=== PATIENT | female | born 1940 | race Caucasian/White ===

== ENCOUNTER 2023-07-24 10:25 | Emergency (ER) | payer MEDICARE, OTHER, SELFPAY ==
[2023-07-24] VITALS (8 sets, daily range): BP systolic 103–136; BP diastolic 61–65; PULSE 64–77; RESP 14–18; TEMP 35.8; O2SAT 96–99; BMI 29.1
--- NOTE | 2023-07-24 12:49 | ED_ITS ---
HPI - General Adult General Time Seen by Provider: 12:49 Date Seen: 07/24/23 Chief complaint: Abdominal Pain Stated complaint: history of blood clots, bloody nose, pain in groin Time Seen by Provider: 07/24/23 12:44 Source: patient, family and RN notes reviewed Mode of arrival: ambulatory Limitations: no limitations History of Present Illness HPI narrative: This 83-year-old female comes in accompanied by a family members with concern nose bleeds that have been recurrent, recent diagnosis of pulmonary emboli on blood thinners, some right groin pain. Her daughter is up from [facility] helping right now, patient lives in her other daughter's basement. The daughter that is present notes she has not been moving around much and they have been asking her to. She noted that she got significantly dyspneic when attempting to just clean the floor the other day. They were worried she might have recurrent emboli. She is on Xarelto 15 mg twice a day in next week will start the maintenance dose of 20 mg daily. She reportedly about 2 weeks ago was sent from [place] [id number] in [place] with pulmonary emboli that required interventional radiology. Her son pulls out a picture of all the clots they removed out of her lungs. They reportedly did note residual clot in 1 of her legs but they were told that they would not need to worry about the clot in her leg because she was being started on blood thinners. They have not noted any fevers. She is not necessarily feeling short of breath with activity at questioning but daughter feels that she is dyspneic. They note she has had a cough somewhat since her procedure. Again no fever. Appetite maybe decreased but no abdominal pain. She is complained of right groin pain, they believe this is the side they went in, she did have 1 stitch at 1 point. They also wonder she might be depressed. Her daughter notes that she is not wanting to shower but patient states she did get into the shower last night. Patient denies any falls or trauma. Related Data Home Medications Medication Instructions Recorded Confirmed amlodipine 5 mg tablet 5 mg PO DAILY 07/24/23 07/24/23 atenolol 50 mg tablet 50 mg PO DAILY 07/24/23 07/24/23 glyburide 2.5 mg tablet 2.5 mg PO DAILY 07/24/23 07/24/23 lovastatin 20 mg tablet 20 mg PO DAILY 07/24/23 07/24/23 metformin 1,000 mg tablet 1,000 mg PO BID 07/24/23 07/24/23 zarolto 15 mg PO BID 07/24/23 07/24/23 Allergies Allergy/AdvReac Type Severity Reaction Status Date / Time No Known Drug Allergies Allergy Verified 07/24/23 10:43 Review of Systems Status of ROS: Reports: 6 or more systems reviewed and unremarkable except as noted in History and below PFSH PFS Social History Smoking Status: Never smoker Non-prescribed substance use: denies use Exam Const: Vital Signs, click to edit/add: Vital Signs - 24 hr 07/24/23 10:33 Temperature 96.5 F L Pulse Rate [Right Pulse Oximeter] 77 Respiratory Rate 18 Blood Pressure [Ri ght Upper Arm] 103/65 Pulse Oximetry 96 Oxygen Delivery Me thod Room Air Meli is an 83-year-old female lying in the exam bed in room 7, she is alert, interactive, no apparent distress. Able to speak in complete sentences, no dyspnea no tachypnea, speech is normal. Pupils are equal round, sclera clear, symmetrical facial function. Neck is supple, no cervical adenopathy, no thyromegaly masses or nodules. She is able to sit up easily without assist, lungs are clear, good air entry, no wheezing or crackles. CV regular rate and rhythm, no murmur, normal S1 and S2, no S3 or S4. Abdomen is soft, no abdominal distension, no rebound or guarding. Both in the right groin fold as well as right lower abdominal wall skin fold there is yeast smelling erythematous change of the skin, there is some maceration of the skin. She has 1 little small dime- size wound of the skin along that right lower quadrant/right groin area on the lower abdominal wall where she is tender around it, skin is broke down a bit. She has full range of motion of her right hip, only complaint is pain maybe outside laterally along the right greater trochanter. It is not certainly very tender at all on palpation. I feel no pulsatile groin masses, cannot even see the site where the did the groin vascular access, unless it is the 1 little ulcerated area that may be broke down. The skin changes in the groin fold in the skin fold of the right lower abdomen are all superficial and seemed to be very consistent with yeast. Anterior nares reveal normal septum, no blood in the nares, cannot see anything to cauterize. She is not obviously bleeding at this time. Documenting provider has reviewed patient's vital signs: yes Course Course ED Course: Family is worried that she might have a recurrent pulmonary embolus. Reviewed with them that it would be very unlikely if they have not missed any doses of the Xarelto. We did discuss that the contrast can be detrimental to the ki dneys. We will see where her creatinine is today. Will do a full complement of labs, have her on pulse oximetry while she is here. Will have nursing staff clean her skin folds and get some nystatin powder on there, do some teaching about skin care. Will discussed imaging with family once we have seen labs. Reevaluation(s) Time of Reevaluation #1: 15:54 Reevaluation #1: Have spent time discussing with patient and her family that her labs are quite reassuring, her vitals are excellent here. We discussed that we do note the Xarelto is obviously working as a blood thinner, she is having recurrent nose bleeds. She has had none while she is here. She has been able to control them by a pinching her nose in the appropriate distribution. I did provide her with the blue nose clip to use. It is likely that she may have recurrent bleeds. Recommend that they follow-up with ENT. I can see nothing to cauterize at this time. She cannot stop the anticoagulant. We did discuss imaging, at this time with informed discussion, they have decided against this which I do support. Her right groin is feeling better after nursing staff did some wound care. Vital Signs Vital signs: Initial Vital Signs Temperature 96.5 F L 07/24/23 10:33 Temperature Source Temporal Artery Scan 07/24/23 10:33 Pulse Rate 77 07/24/23 10:33 Respiratory Rate 18 07/24/23 10:33 Blood Pressure 103/65 07/24/23 10:33 Blood Pressure Mean 77 07/24/23 10:33 Blood Pressure Position Sitting 07/24/23 10:33 Pulse Oximetry 96 07/24/23 10:33 Oxygen Delivery Method Room Air 07/24/23 10:33 Vital Signs Temperature 96.5 F L 07/24/23 10:33 Pulse Rate 77 07/24/23 10:33 Respiratory Rate 18 07/24/23 10:33 Blood Pressure 103/65 07/24/23 10:33 Pulse Oximetry 96 07/24/23 10:33 Oxygen Delivery Method Room Air 07/24/23 10:33 Temperature 96.5 F L 07/24/23 10:33 Pulse Rate 77 07/24/23 10:33 Respiratory Rate 18 07/24/23 10:33 Blood Pressure 103/65 07/24/23 10:33 Pulse Oximetry 96 07/24/23 10:33 Oxygen Delivery Method Room Air 07/24/23 10:33 Medications Administered Medications: Generic Name Dose Route Start Last Admin Trade Name Freq PRN Reason Stop Dose Admin Nystatin 1 applic 07/24/23 21:00 07/24/23 14:15 Nystatin Powder TOPICAL 1 applic BID SHARA Administration Discontinued Medications Generic Name Dose Route Start Last Admin Trade Name Freq PRN Reason Stop Dose Admin Sodium Chloride 250 mls @ 250 mls/hr 07/24/23 13:54 07/24/23 14:25 0.9 % Sodium Chloride 250 Ml IV 07/24/23 14:53 Infused .Q1H ONE Infusion Medical Decision Making Lab Data Labs: Lab Results 07/24/23 07/24/23 Range/Units 13:05 13:25 WBC 6.29 (4.50-11.00) K/uL RBC 3.92 L (4.00-5.20) m/uL Hgb 11.6 L (12.0-16.0) gm/dL Hct 35.7 (33.0-51.0) % MCV 91 (80-100) fL MCH 30 (26-34) pg MCHC 33 (32-36) gm/dL RDW Coeff of Giovanni 12.8 (11.5-15.5) % Plt Count 244 (140-440) K/uL Neut % (Auto) 67.2 (42.0-72.0) % Lymph % (Auto) 26.2 (20-44) % [place] % (Auto) 5.4 (0.0-11.0) % Eos % (Auto) 1.0 (0.0-7.0) % Baso % (Auto) 0.2 (0.0-3.0) % Neut # (Auto) 4.23 (1.7-7.0) K/uL Lymph # (Auto) 1.65 (0.90-2.90) K/uL [place] # (Auto) 0.30 (0.00-0.90) K/UL Eos # (Auto) 0.06 (0.00-0.50) K/uL Baso # (Auto) 0.01 (0.00-0.30) K/uL Abs Immat Gran (auto) 0.00 (0.00-0.30) K/uL Imm/Tot Granulo (auto) 0.0 % Sodium 139 (135-149) mmol/L Potassium 4.8 (3.6-5.1) mmol/L Chloride 107 (96-114) mmol/L Carbon Dioxide 22 (20-32) mmol/L Anion Gap 10 (7-15) mEq/L BUN 21 (7-30) mg/dL Creatinine 1.3 (0.5-1.5) mg/dL Estimated Creat Clear 29.50 Estimated GFR 41 ml/min Glucose 136 H (60-115) mg/dL Lactate 2.3 H (0.5-1.9) mmol/L Calcium 9.7 (8.4-10.6) mg/dL Total Bilirubin 0.4 (0.1-1.5) mg/dL AST 26 (12-35) U/L ALT 21 (4-35) U/L Alkaline Phosphatase 39 L (40-150) U/L C-Reactive Protein < 0.5 L (0.5-1.0) mg/dL Total Protein 7.5 (6.0-8.3) g/dL Albumin 4.4 (3.3-5.0) g/dL POC Troponin I 0.00 L (0.01-0.04) ng/ml ECG Data Attestation: I personally reviewed and interpreted this ECG as follows: (Normal sinus rhythm, 64 beats per minute. Q-wave in flipped T-wave in V1 without ST segment changes, no definitive active ischemia or infarct seen. QT corrected 406 milliseconds.) Critical Care Time Critical Care Time Critical Care Time: No Discharge Plan Discharge Clinical Impression: Epistaxis, Yeast dermatitis, Chronic anticoagulation, Pulmonary emboli Patient Disposition: Home, Self-Care Condition: Stable Instructions: Nosebleed (ED), Skin Yeast Infection (ED) Additional Instructions: You cannot stop the Xarelto, need to take as prescribed. It is important to not miss any doses, it sounds as you have been good about taking the medication as prescribed. Do recommend that you get an ENT appointment to further look at the left nose bleed do been having. Can use a small amount of Vaseline, about pea size in each anterior nostril at bedtime, this can sometimes help moisturize the nasal membranes. Be careful to not rub the Vaseline in to roughly, do not want to cause any bleeding. You can contact [facility] to get scheduled for ENT or there is Dr. Mackey, need to call the [facility] clinic as they do his scheduling at the different sites he goes to. This phone number is [phone]. If your nose bleed does not stop within 30 minutes of the nose clip on with direct pressure, do recommend coming in to have the nose packed. Have provided nystatin powder to be used twice a day in the skin folds, it is important to observe good skin care, try to keep the moisture down in the skin folds and keep this skin cleaned daily. Activity Level: Activity as Tolerated Prescriptions: No Action zarolto 15 mg PO BID Patient Comments: then will increase to 20 mg will start within the next week glyburide 2.5 mg tablet 2.5 mg PO DAILY amlodipine 5 mg tablet 5 mg PO DAILY metformin 1,000 mg tablet 1,000 mg PO BID lovastatin 20 mg tablet 20 mg PO DAILY atenolol 50 mg tablet 50 mg PO DAILY Follow Up/Referrals: Paloma Escobedo DO [Primary Care Provider] - Stand Alone Forms: [employer] Info Instructions
[2023-07-24 13:31] LABS: Lactate* 2.3 mmol/L (0.5-1.9)
[2023-07-24 13:33] LABS: Basophils Absolute Auto 0.01 K/uL (0.00-0.30); Basophils Percent Auto 0.2 % (0.0-3.0); Eosinophils Absolute Auto 0.06 K/uL (0.00-0.50); Hematocrit 35.7 % (33.0-51.0); Hemoglobin* 11.6 gm/dL (12.0-16.0); Lymphocytes Absolute Auto 1.65 K/uL (0.90-2.90); Lymphocytes Percent Auto 26.2 % (20-44); Mean Corpuscular HGB Conc 33 gm/dL (32-36); Mean Corpuscular Hemoglobin 30 pg (26-34); Mean Corpuscular Volume 91 fL (80-100); Monocytes Percent Auto 5.4 % (0.0-11.0); Neutrophils Absolute Auto 4.23 K/uL (1.7-7.0); Neutrophils Percent Auto 67.2 % (42.0-72.0); Platelet Count* 244 K/uL (140-440); RDW Coefficient of Variation % 12.8 % (11.5-15.5); Red Blood Count 3.92 m/uL (4.00-5.20); White Blood Count* 6.29 K/uL (4.50-11.00)
[2023-07-24 13:35] LABS: Slide Review Reflex No
[2023-07-24 13:56] LABS: Albumin* 4.4 g/dL (3.3-5.0); Chloride* 107 mmol/L (96-114)
[2023-07-24 13:57] LABS: Potassium* 4.8 mmol/L (3.6-5.1); Sodium* 139 mmol/L (135-149)
[2023-07-24 13:59] LABS: Bilirubin Total* 0.4 mg/dL (0.1-1.5); Creatinine* 1.3 mg/dL (0.5-1.5); Estimated Glomerular Filt Rate 41 ml/min
[2023-07-24 14:00] LABS: Alanine Aminotransferase* 21 U/L (4-35); Alkaline Phosphatase* 39 U/L (40-150); Anion Gap 10 mEq/L (7-15); Aspartate Amino Transferase* 26 U/L (12-35); Blood Urea Nitrogen* 21 mg/dL (7-30); Calcium* 9.7 mg/dL (8.4-10.6); Carbon Dioxide* 22 mmol/L (20-32); Glucose* 136 mg/dL (60-115); Total Protein* 7.5 g/dL (6.0-8.3)
[2023-07-24 14:04] LABS: C Reactive Protein* < 0.5 mg/dL (0.5-1.0)
--- NOTE | 2023-07-24 14:12 | ED.NURSE ---
Cleaned both groin folds and applied zinc cream/nystatin powder. Educated patient on continuing this going forward. Both sides did bleed a little after this hygiene was performed.
[2023-07-24] MEDS: 0.9 % SODIUM CHLORIDE 250 ml 250 ML IV (14:15)
[2023-07-24] MEDS: NYSTATIN POWDER 1 APPLIC TOPICAL (14:15)
--- NOTE | 2023-07-24 14:51 | ED.NURSE ---
Report received from HONEY Vasquez.
== END 2023-07-24 16:15 | disposition home or self-care (01) ==
PROVIDERS: Emergency Provider Family Medicine; PCP Family Medicine
DX: R04.0 Epistaxis (principal); B37.2 Candidiasis of skin and nail; I26.99 Other pulmonary embolism without acute cor pulmonale; Z79.01 Long term (current) use of anticoagulants
CPT/HCPCS: 36415; 80053; 83605; 84484; 85025; 86140; 93005; 94761; 99284; A9270; J7050

== ENCOUNTER 2023-12-22 18:28 | Inpatient (IN) | payer MEDICARE, OTHER, SELFPAY ==
[2023-12-22 18:56] VITALS: BP 145/79; PULSE 70; RESP 18; TEMP 36.5; O2SAT 96; BMI 27.3
--- NOTE | 2023-12-22 19:19 | ED_ITS ---
HPI - Fall General Time Seen by Provider: 19:20 Date Seen: 12/22/23 Chief Complaint: Fall/Minor Trauma Stated Complaint: fell, hip and shoulder pain Time Seen by Provider: 12/22/23 19:08 Source: patient and RN notes reviewed Mode of arrival: ambulatory Limitations: no limitations History of Present Illness HPI Narrative: This 83-year-old female is coming to the ER accompanied by a female relative with complaint of left-sided pain, particularly her left hip area. She was outside with her dog about 3:00 p.m. this afternoon, was throwing the ball for the dog and lost her balance on the rocks. She fell hitting her left side. She states the left hip area took the most impact. She has been attempting to try to walk on it but it hurts. There was no loss of consciousness, she does not believe she had her head at all. There is no neck pain. She is having no difficulty breathing. There is some mild shoulder pain. No abdominal pain, no nausea or vomiting. There is no numbness tingling anywhere. Patient is on Xarelto. complaint: fall Prolonged down time: no Symptoms prior to fall: none Related Data Home Medications Medication Instructions Recorded Confirmed amlodipine 5 mg tablet 5 mg PO DAILY 07/24/23 07/24/23 atenolol 50 mg tablet 50 mg PO DAILY 07/24/23 07/24/23 glyburide 2.5 mg tablet 2.5 mg PO DAILY 07/24/23 07/24/23 lovastatin 20 mg tablet 20 mg PO DAILY 07/24/23 07/24/23 metformin 1,000 mg tablet 1,000 mg PO BID 07/24/23 07/24/23 zarolto 15 mg PO BID 07/24/23 07/24/23 Allergies Allergy/AdvReac Type Severity Reaction Status Date / Time No Known Drug Allergies Allergy Verified 07/24/23 10:43 Review of Systems Status of ROS: Reports: 6 or more systems reviewed and unremarkable except as noted in History and below PFSH [facility] Social History Smoking Status: Never smoker Non-prescribed substance use: denies use Exam Const: Vital Signs, click to edit/add: Vital Signs - 24 hr 12/22/23 18:56 12/22/23 20:21 12/22/23 23:28 Temperature 97.7 F Pulse Rate [Pulse Oximeter] 70 68 Respiratory Rate 18 16 Blood Pressure [Ri ght Upper Arm] 145/79 H 127/83 Pulse Oximetry 96 99 93 Oxygen Delivery Me thod Room Air Room Air Patient is alert, interactive, no apparent distress, lying in exam bed 5. Head/face/scalp atraumatic, no tenderness. No midline tenderness of her neck, no paraspinal tenderness. Pupils equal round, sclera clear, conjugate gaze. Symmetrical facial function, speech is normal. No cervical adenopathy, no neck masses. Lungs are clear, good air entry, no wheezing or crackles. CV regular rate and rhythm, no murmur, normal S1-S2, no S3-S4. She is nontender over her clavicles until I get to the distal left lateral clavicle by the shoulder in the AC joint. Gentle range of motion of her left shoulder reveals that the shoulder still is very likely in the joint, there is mild pain with manipulation. She has a superficial abrasion over the left posterolateral elbow, no active bleeding. Full range of motion at the elbow wrist and hand on this side. Abdomen is soft, nondistended, she does complain of pain intermittently throughout full distribution of her abdomen but abdomen is not tense, no underlying organomegaly. She states there is baseline no pain, just sometimes hurts when I palpate her abdomen. Will continue to monitor this. She has no leg length discrepancy. There is pain with range of motion about her hip on minimal movement. She does have some pain when I palpate in the groin area, over this left lateral pelvis and hip. Documenting provider has reviewed patient's vital signs: yes Course Course ED Course: Patient will need imaging done, may need to consider advanced imaging with CT. Will see the extent of her possible pelvic or left hip fractures. We will get a plain chest x-ray, left shoulder images. Will have an IV placed, get some basic labs. Will monitor on pulse oximetry. She declines anything for pain management at this time. States she is comfortable while just lying there, pain is not too bad. Will consider shoulder fracture, lateral clavicle fracture but doubt this based on clinical exam. Could be more of a rotator cuff injury with the fall which we will not diagnose definitively tonight. Look at chest x-ray. Get hip and pelvic imaging as we are considering fractures in this distribution. Reevaluation(s) Time of Reevaluation #1: 19:57 Reevaluation #1: Nursing staff is requesting pain management for this patient. She had originally declined when I saw her. We will give her a dose of Tylenol, some IV morphine at 2 mg and cover for nausea with Zofran. Awaiting imaging and labs. Time of Reevaluation #2: 22:00 Reevaluation #2: Reviewed her x-ray imaging is showing no fractures. We will have nursing staff see if she can ambulate. She does have a walker at home but does not use it baseline. If she is having significant pain with ambulation, will need to proceed with CT imaging. Time of Reevaluation #3: 22:16 Reevaluation #3: Patient could not even stand to bear weight. Points to the left hip area where it is hurting. She does have some tenderness over the lateral area over the trochanter but also complains of pain with gentle range of motion of the left hip. She has some pain more posteriorly behind the hip area. We are going to proceed with CT imaging of her left hip and pelvis. Patient denies any need for further pain management at this time. Additional Reevaluation(s): 12:03 a.m. have spoken with daughter inpatient. Plan will be for admission here. She will need to let her Xarelto taper off. They know that at some point bridging with Lovenox will be started. Actual time of procedure is not known definitely but my best guess is Monday. They understand between the hospitalist, pharmacy and Orthopedics a definitive plan will be made. They will know more tomorrow. Consultations Consultation #1: Victoria MCCALLUM from Orthopedics was contacted. Did review the history. She wonders if the hospitalist will be okay with the history of the pulmonary emboli. She would like me to talk to them. I did subsequently talk to Dr. Hutchins, we reviewed the case. Reviewed with him that Victoria thought it would probably be just some pinning. I did subsequently call her back, she had reviewed with Dr. Hardy. It seems that all are in agreement for this to be done here, they feel that there is a safe plan in place. I will be talking to the overnight hospitalist. Will page them. Time: 23:46 Consultation #2: 00:09am: Did speak with Dr. Jones the overnight on-call hospitalist. We reviewed the case. I did bring up bridging with Lovenox. He stated it to is likely not recommended. He stated there was a new [place] [employer] medicine that came out about a year ago documenting increased risks with bridging in patient population such as this. I will leave this up for pharmacy in the hospitalist to discuss and review. He does accept the patient. Did review the hemoglobins. This is likely mild expected drop with a hip fracture. Time: 00:01 Vital Signs Vital signs: Initial Vital Signs Temperature 97.7 F 12/22/23 18:56 Temperature Source Temporal Artery Scan 12/22/23 18:56 Pulse Rate 70 12/22/23 18:56 Pulse Rhythm Regular 12/22/23 18:56 Respiratory Rate 18 12/22/23 18:56 Blood Pressure 145/79 H 12/22/23 18:56 Blood Pressure Mean 101 12/22/23 18:56 Blood Pressure Position Sitting 12/22/23 18:56 Pulse Oximetry 96 12/22/23 18:56 Oxygen Delivery Method Room Air 12/22/23 18:56 Vital Signs Temperature 97.7 F 12/22/23 18:56 Pulse Rate 70 12/22/23 18:56 Respiratory Rate 18 12/22/23 18:56 Blood Pressure 145/79 H 12/22/23 18:56 Pulse Oximetry 96 12/22/23 18:56 Oxygen Delivery Method Room Air 12/22/23 18:56 Temperature 97.7 F 12/22/23 18:56 Pulse Rate 68 12/22/23 23:28 Respiratory Rate 16 12/22/23 23:28 Blood Pressure 127/83 12/22/23 23:28 Pulse Oximetry 93 12/22/23 23:28 Oxygen Delivery Method Room Air 12/22/23 23:28 Medications Administered Medications: Discontinued Medications Generic Name Dose Route Start Last Admin Trade Name Freq PRN Reason Stop Dose Admin Acetaminophen 1,000 mg 12/22/23 19:57 12/22/23 20:20 Acetaminophen 500 Mg Tablet PO 12/22/23 19:58 1,000 mg ONCE ONE Administration Morphine Sulfate 2 mg 12/22/23 19:57 12/22/23 20:20 Morphine 2 Mg/Ml Inj IVP 12/22/23 19:58 2 mg ONCE ONE Administration Ondansetron HCl 4 mg 12/22/23 19:57 12/22/23 20:20 Ondansetron 2 Mg/Ml Inj IVP 12/22/23 19:58 4 mg ONCE ONE Administration - Fall Lab Data Attestation: I reviewed the patient's lab results. Labs: Lab Results 12/22/23 12/22/23 Range/Units 19:55 23:45 WBC 11.25 H (4.50-11.00) K/uL RBC 3.90 L (4.00-5.20) m/uL Hgb 11.5 L 10.7 L (12.0-16.0) gm/dL Hct 35.0 (33.0-51.0) % MCV 90 (80-100) fL MCH 30 (26-34) pg MCHC 33 (32-36) gm/dL RDW Coeff of Giovanni 12.9 (11.5-15.5) % Plt Count 252 (140-440) K/uL Neut % (Auto) 87.2 H (42.0-72.0) % Lymph % (Auto) 7.8 L (20-44) % Walsh % (Auto) 4.2 (0.0-11.0) % Eos % (Auto) 0.1 (0.0-7.0) % Baso % (Auto) 0.1 (0.0-3.0) % Neut # (Auto) 9.80 H (1.7-7.0) K/uL Lymph # (Auto) 0.90 (0.90-2.90) K/uL Walsh # (Auto) 0.50 (0.00-0.90) K/UL Eos # (Auto) 0.00 (0.00-0.50) K/uL Baso # (Auto) 0.00 (0.00-0.30) K/uL Abs Immat Gran (auto) 0.10 (0.00-0.30) K/uL Imm/Tot Granulo (auto) 0.6 % Sodium 135 (135-149) mmol/L Potassium 5.0 (3.6-5.1) mmol/L Chloride 104 (96-114) mmol/L Carbon Dioxide 21 (20-32) mmol/L Anion Gap 10 (7-15) mEq/L BUN 27 (7-30) mg/dL Creatinine 1.4 (0.5-1.5) mg/dL Estimated Creat Clear 27.40 Estimated GFR 37 ml/min Glucose 210 H (60-115) mg/dL Calcium 10.0 (8.4-10.6) mg/dL Total Bilirubin 0.3 (0.1-1.5) mg/dL AST 24 (12-35) U/L ALT 16 (4-35) U/L Alkaline Phosphatase 46 (40-150) U/L Total Protein 8.1 (6.0-8.3) g/dL Albumin 4.7 (3.3-5.0) g/dL Imaging Data Chest x-ray: Attestation: I have reviewed the pertinent imaging results. Radiologist's impression: Patient: JERICA POSADAS Facility:?[facility] Patient ID:?[id number] Site Patient ID:?[id number] Site :?1940 Study:?XRay-Chest 1V-12/22/2023 8:11:45 PM Ordering Physician:?RACHEL Final Report: INDICATION: Trauma, fall. TECHNIQUE: Chest 1 view. COMPARISON: None. FINDINGS: Cardiovascular and mediastinum: Heart size and vasculature are normal in caliber and appearance. Lungs and pleural spaces: Lungs are clear. No sign of infiltrate or mass. No sign of pleural effusion. No pneumothorax. Bones and soft tissues: No significant findings. IMPRESSION: Negative chest. Dictated by Andrea Thorpe MD @ 12/22/2023 9:08:50 PM (Electronic Signature) XR left hip/pelvis: Attestation: I have reviewed the pertinent imaging results. My impression: I did not appreciate any left hip fracture, do see old pinning of her right hip. Await Radiology over-read. Radiologist's impression: Patient: JERICA POSADAS Facility:?[facility] Patient ID:?[id number] Site Patient ID:?[id number]. Site :?1940 Study:?XRay-Pelvis /HIP 2V-12/22/2023 8:13:17 PM Ordering Physician:ARY Final Report: INDICATION: Fall and pain. TECHNIQUE: Pelvis and left hip 3 views. COMPARISON: None. FINDINGS: No acute fracture or dislocation. Mild degenerative changes of the hips, SI joints, and pubic symphysis. Lower lumbar spondylosis. Vascular calcifications. IMPRESSION: No acute osseous abnormality. Dictated by Andrea Thorpe MD @ 12/22/2023 9:19:52 PM (Electronic Signature) XR left shoulder: Attestation: I have reviewed the pertinent imaging results. My impression: I did not appreciate any acute fracture on my preliminary review. Radiologist's impression: Patient: JERICA POSADAS Facility:?[facility] Patient ID:?[id number] Site Patient ID:?[id number]. Site :?1940 Study:?XRay-Extremity Left SHOULDER 3V-12/22/2023 8:12:16 PM Ordering Physician:?RACHEL Final Report: INDICATION: Fall and pain. TECHNIQUE: Left shoulder 3 views. COMPARISON: None. FINDINGS: No acute fracture or dislocation. AC and glenohumeral joint degenerative changes. Soft tissues are unremarkable. IMPRESSION: No acute osseous abnormality. Dictated by Andrea Thorpe MD @ 12/22/2023 9:21:13 PM (Electronic Signature) CT- Other: Attestation: I have reviewed the pertinent imaging results. Radiologist's impression: Patient: JERICA POSADAS Facility:?[facility] Patient ID:?[id number] Site Patient ID:?[id number] Site :?1940 Study:?CT-Hip Left -12/22/2023 11:16:51 PM Ordering Physician:?ABIDA ROSENBERG Final Report: INDICATION: Trauma, fall. TECHNIQUE: CT left hip without contrast. COMPARISON: Same day left hip radiographs. FINDINGS: Diffuse osteopenia. Subtle nondisplaced fracture of the left femoral subcapital neck. Joint alignment is maintained. Mild degenerative changes of the hips, SI joints, and pubic symphysis. Right proximal femur screw fixation. Colonic diverticulosis. Visualized small and large bowel are normal in caliber. Status post hysterectomy. Atherosclerotic calcifications. No pelvic adenopathy. IMPRESSION: Subtle nondisplaced left femoral subcapital neck fracture. Please note that all CT scans at this facility use dose modulation, iterative reconstruction, and/or weight-based dosing when appropriate to reduce radiation dose to as low as reasonably achievable. Dictated by Andrea Thorpe MD @ 12/22/2023 11:26:36 PM (Electronic Signature) Discharge Plan Discharge Clinical Impression: Chronic anticoagulation, History of pulmonary embolism Closed subcapital fracture of femur Qualifiers: Encounter type: initial encounter Laterality: left Qualified Code(s): S72.012A - Unspecified intracapsular fracture of left femur, initial encounter for closed fracture Patient Disposition: Admitted As Observation
--- NOTE | 2023-12-22 19:25 | XR_ITS ---
Patient: JERICA POSADAS Facility:?[facility] Patient ID:?[id number] Site Patient ID:?[id number]. Site :?1940 Study:?XRay-Pelvis /HIP 2V-12/22/2023 8:13:17 PM Ordering Physician:ARY Final Report: INDICATION: Fall and pain. TECHNIQUE: Pelvis and left hip 3 views. COMPARISON: None. FINDINGS: No acute fracture or dislocation. Mild degenerative changes of the hips, SI joints, and pubic symphysis. Lower lumbar spondylosis. Vascular calcifications. IMPRESSION: No acute osseous abnormality. Dictated by Andrea Thorpe MD @ 12/22/2023 9:19:52 PM Signed by:?Andrea Thorpe MD @12/22/2023 9:19:52 PM (Electronic Signature)
--- NOTE | 2023-12-22 19:25 | XR_ITS ---
Patient: JERICA POSADAS Facility:?[facility] Patient ID:?[id number] Site Patient ID:?[id number]. Site :?1940 Study:?XRay-Extremity Left SHOULDER 3V-12/22/2023 8:12:16 PM Ordering Physician:ARY Final Report: INDICATION: Fall and pain. TECHNIQUE: Left shoulder 3 views. COMPARISON: None. FINDINGS: No acute fracture or dislocation. AC and glenohumeral joint degenerative changes. Soft tissues are unremarkable. IMPRESSION: No acute osseous abnormality. Dictated by Andrea Thorpe MD @ 12/22/2023 9:21:13 PM Signed by:?Andrea Thorpe MD @12/22/2023 9:21:13 PM (Electronic Signature)
--- NOTE | 2023-12-22 19:25 | XR_ITS ---
Patient: JERICA POSADAS Facility:?[facility] Patient ID:?[id number] Site Patient ID:?[id number] Site :?1940 Study:?XRay-Chest 1V-12/22/2023 8:11:45 PM Ordering Physician:ARY Final Report: INDICATION: Trauma, fall. TECHNIQUE: Chest 1 view. COMPARISON: None. FINDINGS: Cardiovascular and mediastinum: Heart size and vasculature are normal in caliber and appearance. Lungs and pleural spaces: Lungs are clear. No sign of infiltrate or mass. No sign of pleural effusion. No pneumothorax. Bones and soft tissues: No significant findings. IMPRESSION: Negative chest. Dictated by Andrea Thorpe MD @ 12/22/2023 9:08:50 PM Signed by:?Andrea Thorpe MD @12/22/2023 9:08:50 PM (Electronic Signature)
[2023-12-22 20:01] LABS: Basophils Percent Auto 0.1 % (0.0-3.0); Eosinophils Percent Auto 0.1 % (0.0-7.0); Hemoglobin* 11.5 gm/dL (12.0-16.0); Immature Granulocytes Pct Auto 0.6 %; Lymphocytes Percent Auto 7.8 % (20-44); Mean Corpuscular HGB Conc 33 gm/dL (32-36); Mean Corpuscular Hemoglobin 30 pg (26-34); Mean Corpuscular Volume 90 fL (80-100); Monocytes Percent Auto 4.2 % (0.0-11.0); Neutrophils Percent Auto 87.2 % (42.0-72.0); Platelet Count* 252 K/uL (140-440); RDW Coefficient of Variation % 12.9 % (11.5-15.5); White Blood Count* 11.25 K/uL (4.50-11.00)
[2023-12-22 20:11] LABS: Slide Review Reflex No
[2023-12-22] MEDS: ACETAMINOPHEN 500 MG TABLET 1000 MG PO (20:20)
[2023-12-22] MEDS: ONDANSETRON 2 MG/ML inj 4 MG IVP (20:20)
[2023-12-22] MEDS: MORPHINE 2 MG/ML inj IVP (20:20)
[2023-12-22 20:21] VITALS: O2SAT 99
[2023-12-22 20:21] LABS: Albumin* 4.7 g/dL (3.3-5.0); Chloride* 104 mmol/L (96-114); Sodium* 135 mmol/L (135-149)
[2023-12-22 20:24] LABS: Alanine Aminotransferase* 16 U/L (4-35); Alkaline Phosphatase* 46 U/L (40-150); Anion Gap 10 mEq/L (7-15); Aspartate Amino Transferase* 24 U/L (12-35); Bilirubin Total* 0.3 mg/dL (0.1-1.5); Blood Urea Nitrogen* 27 mg/dL (7-30); Carbon Dioxide* 21 mmol/L (20-32); Creatinine* 1.4 mg/dL (0.5-1.5); Estimated Glomerular Filt Rate 37 ml/min; Glucose* 210 mg/dL (60-115); Total Protein* 8.1 g/dL (6.0-8.3)
--- NOTE | 2023-12-22 22:17 | CT_ITS ---
Patient: JERICA POSADAS Facility:?[facility] Patient ID:?[id number] Site Patient ID:?[id number] Site :?1940 Study:?CT-Hip Left -12/22/2023 11:16:51 PM Ordering Physician:MECHELLE NOLAND Final Report: INDICATION: Trauma, fall. TECHNIQUE: CT left hip without contrast. COMPARISON: Same day left hip radiographs. FINDINGS: Diffuse osteopenia. Subtle nondisplaced fracture of the left femoral subcapital neck. Joint alignment is maintained. Mild degenerative changes of the hips, SI joints, and pubic symphysis. Right proximal femur screw fixation. Colonic diverticulosis. Visualized small and large bowel are normal in caliber. Status post hysterectomy. Atherosclerotic calcifications. No pelvic adenopathy. IMPRESSION: Subtle nondisplaced left femoral subcapital neck fracture. Please note that all CT scans at this facility use dose modulation, iterative reconstruction, and/or weight-based dosing when appropriate to reduce radiation dose to as low as reasonably achievable. Dictated by Andrea Thorpe MD @ 12/22/2023 11:26:36 PM Signed by:?Andrea Thorpe MD @12/22/2023 11:26:36 PM (Electronic Signature)
[2023-12-22 23:28] VITALS: BP 127/83; PULSE 68; RESP 16; O2SAT 93
[2023-12-23] VITALS (11 sets, daily range): BP systolic 108–162; BP diastolic 63–76; PULSE 67–81; RESP 16; TEMP 36.5–37.2; O2SAT 89–94; BMI 27.3
[2023-12-23 00:04] LABS: Hemoglobin* 10.7 gm/dL (12.0-16.0)
[2023-12-23] MEDS: 0.9 % SODIUM CHLORIDE 1000 ml 1,000 ML 75 ML IV ×2 (02:26→15:56)
[2023-12-23] MEDS: SODIUM CHLORIDE 0.9 % (FLUSH) 10 ML SYRINGE 5 ML IVF (02:28)
[2023-12-23] MEDS: OXYCODONE 5 MG TABLET PO (03:06)
--- NOTE | 2023-12-23 04:10 | W.PM.TELEH&P ---
Telehealth- H&P: HPI History of Present Illness Date Seen: 12/23/23 Chief complaint: fell, hip and shoulder pain Narrative: Meli Whalen is seen as an Interactive Telehealth visit. Meli Whalen is a 83 year old female This patient was describing a nausea and vomiting and diarrhea with associated bleeding. Apparently she gets flares like this periodically. Last time she had this was in October 2022 coincidently in the same hospital. At that time she was treated conservatively and was able to discharge. Today the patient is experiencing abdominal pain, rectal pain, rectal bleeding and intermittent nausea. Her rectal bleeding and rectal pain has worsened because she is on anticoagulation. Anticoagulation was last taken on December 21, 2023. I would recommend to continue holding her Eliquis until her bleeding stops. She understands the risks and benefits of holding anticoagulation. If her bleeding does not stop, I would recommend a transfer to a facility where colorectal surgery is available. Patient is experiencing acute blood loss anemia. Hemoglobin appears stable and no indication for transfusion but will order CBC in the a.m. 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 At this point there is no indication for transfusion. Abdominal pain: CT scan did not show any acute abnormality. Her abdominal pain be apparently this is associated with her rectal ulcers I will provide pain medication. [facility] Social History What is your current living situation?: I presently have a place to live Problems where you live: no known problems Problems where you live details: no known problems In the past 12 months, utilities in danger of being shut off: no In past 12 months, lack of transportation kept you from medical appts, meetings, work, or getting things needed for daily living: no In the past 12 mos, have been you worried that your food would run out before you had money to buy more?: never true In the past 12 mos, the food you bought just didn't last and you didn't have money to buy more?: never true Highest level of school completed/degree received: 12th grade, no diploma Smoking Status: Never smoker Second hand tobacco smoke exposure: No How often do you have a drink containing alcohol: never AUDIT-C Alcohol total score: 0 Non-prescribed substance use: denies use Caffeine: Yes (Coffee) How often does anyone, including family, friends and others, physically hurt you: never How often does anyone, including family, friends and others, insult or talk down to you: never How often does anyone, including family, friends and others, threaten you with harm: never How often does anyone, including family, friends and others, scream or curse at you: never Meds Home Medications and Allergies Home Medications Medication Instructions Recorded Confirmed Type amlodipine 5 mg tablet 5 mg PO DAILY 07/24/23 07/24/23 History atenolol 50 mg tablet 50 mg PO DAILY 07/24/23 07/24/23 History glyburide 2.5 mg tablet 2.5 mg PO DAILY 07/24/23 07/24/23 History lovastatin 20 mg tablet 20 mg PO DAILY 07/24/23 07/24/23 History metformin 1,000 mg tablet 1,000 mg PO BID 07/24/23 07/24/23 History zarolto 15 mg PO BID 07/24/23 07/24/23 History Allergies Allergy/AdvReac Type Severity Reaction Status Date / Time No Known Drug Allergies Allergy Verified 07/24/23 10:43 Exam Narrative Exam Narrative: Physical Exam GENERAL: ?vital signs reviewed, well developed and nourished, in no distress HEENT: pupils are equal round and reactive to light, extraocular movements are grossly within normal limits and oral mucosa is moist. NECK: Supple without lymphadenopathy or thyromegaly according to nursing staff examination observation HEART: Regular rate and rhythm without any rubs, murmurs, or gallops. LUNGS: Clear to auscultation bilaterally with good air movement throughout ABDOMEN: Observation from nurse assisted exam, abdomen appears soft, nontender, and nondistended with Positive bowel sounds noted. EXTREMITIES: Strength and sensation is observed to be grossly within normal limits in the upper and lower extremities.? No focal strength deficit is observed. SKIN:? Observed warm and dry with color normal Const Vital Signs, click to edit/add: Vital Signs - 24 hr 12/22/23 18:56 12/22/23 20:21 12/22/23 23:28 Temperature 97.7 F Pulse Rate [Pulse Oximeter] 70 68 Respiratory Rate 18 16 Blood Pressure [Right Arm] Blood Pressure [Right Upper Arm] 145/79 H 127/83 Pulse Oximetry 96 99 93 Oxygen Delivery Method Room Air Room Air 12/23/23 01:10 12/23/23 01:10 12/23/23 03:05 Temperature 98.2 F 98.9 F Pulse Rate [Pulse Oximeter] 78 80 Respiratory Rate 16 16 16 Blood Pressure [Right Arm] 158/73 H 162/72 H Blood Pressure [Right Upper Arm] Pulse Oximetry 92 94 Oxygen Delivery Method Room Air Room Air Hospitalist - H&P: Result Labs Labs: Short CBC 12/22/23 12/22/23 Range/Units 19:55 23:45 WBC 11.25 H (4.50-11.00) K/uL Hgb 11.5 L 10.7 L (12.0-16.0) gm/dL Hct 35.0 (33.0-51.0) % Plt Count 252 (140-440) K/uL BMP 12/22/23 19:55 Sodium 135 Potassium 5.0 Chloride 104 Carbon Dioxide 21 BUN 27 Creatinine 1.4 Glucose 210 H Calcium 10.0 Liver Function 12/22/23 Range/Units 19:55 Total Bilirubin 0.3 (0.1-1.5) mg/dL AST 24 (12-35) U/L ALT 16 (4-35) U/L Alkaline Phosphatase 46 (40-150) U/L Albumin 4.7 (3.3-5.0) g/dL Assessment and Plan Assessment and plan (1) Closed subcapital fracture of femur: Status: Acute (2) Chronic anticoagulation: Status: Acute (3) History of pulmonary embolism: Status: Acute (4) Accelerated hypertension: Status: Acute Plan 83-year-old female who is a subtle nondisplaced femoral neck fracture. Orthopedics has been consulted. Patient will be kept NPO. Anticoagulation is held. I do not recommend bridging due to the high risk of bleeding. Patient's pain is controlled. As needed Kahn catheter has been ordered in case she is unable to ambulate. Currently on bedrest. Patient is on room air, denies chest pain, has a normal kidney function. Patient denies any chest pain at rest or activity. Denies any shortness of breath with activity. Patient is likely a low risk candidate for moderate risk surgery. Patient has a history of pulmonary embolism for which she is on Eliquis. Her last dose Eliquis filled on December. At this time I would recommend holding her Eliquis. Postoperative, if the surgeons feel it is okay to restart it she can restart at her regular dose. There was a questionable bridging, I think the risk of bleeding would outweigh the risk of any benefit of having her on any bridging. Therefore I would hold off. Patient does have a history of hypertension for which she is on amlodipine and atenolol. Her blood pressures are elevated likely in the setting of pain. Will restart home medications. Telehealth: Statement Statement Telehealth Visit: Today's History and Physical is provided via interactive telehealth by Jackson Jones MD.? Patient is located at [facility].? Provider is located at [facility].? Nursing staff assisted with the patient's exam. The visit being done today meets criteria for a telehealth visit and the patient or patient?s parent/guardian is aware the visit is a telehealth visit. Camera Start Time: 01:30 Camera End Time: 02:00
--- NOTE | 2023-12-23 07:36 | PC.NURSE ---
Pt alert and oriented x3 with some forgetfulness.?Pt reports 5/10 pain in left hip, pain managed with PRN medications. Pt?s antoine catheter is patent and draining. Pt is tolerating and NPO diet. Pt slept intermittently throughout night. ?
[2023-12-23 08:03] LABS: Lactate* 1.3 mmol/L (0.5-1.9)
[2023-12-23 08:04] LABS: Basophils Absolute Auto 0.01 K/uL (0.00-0.30); Basophils Percent Auto 0.1 % (0.0-3.0); Eosinophils Absolute Auto 0.09 K/uL (0.00-0.50); Eosinophils Percent Auto 1.1 % (0.0-7.0); Hematocrit 31.7 % (33.0-51.0); Hemoglobin* 10.4 gm/dL (12.0-16.0); Immature Granulocytes Abs Auto 0.02 K/uL (0.00-0.30); Immature Granulocytes Pct Auto 0.3 %; Lymphocytes Percent Auto 11.7 % (20-44); Mean Corpuscular HGB Conc 33 gm/dL (32-36); Mean Corpuscular Hemoglobin 29 pg (26-34); Mean Corpuscular Volume 89 fL (80-100); Monocytes Percent Auto 5.1 % (0.0-11.0); Neutrophils Percent Auto 81.7 % (42.0-72.0); Platelet Count* 206 K/uL (140-440); Red Blood Count 3.56 m/uL (4.00-5.20); White Blood Count* 7.85 K/uL (4.50-11.00)
[2023-12-23 08:06] LABS: Slide Review Reflex No
[2023-12-23 08:17] LABS: Chloride* 103 mmol/L (96-114)
[2023-12-23 08:18] LABS: Potassium* 4.9 mmol/L (3.6-5.1); Sodium* 136 mmol/L (135-149)
[2023-12-23 08:20] LABS: Creatinine* 1.3 mg/dL (0.5-1.5); Estimated Glomerular Filt Rate 41 ml/min
[2023-12-23 08:21] LABS: Anion Gap 7 mEq/L (7-15); Blood Urea Nitrogen* 24 mg/dL (7-30); Calcium* 9.5 mg/dL (8.4-10.6); Carbon Dioxide* 26 mmol/L (20-32); Glucose* 170 mg/dL (60-115)
--- NOTE | 2023-12-23 08:46 | P.ORCN_ITS ---
History of Present Illness HPI Date Seen: 12/23/23 Chief complaint: fell, hip and shoulder pain Narrative: Meli is a pleasant 83-year-old female. She reports playing with her dog when unfortunately she tripped and fell landing onto her left hip. She had significant pain. Difficulty bearing weight. She lives with her daughter and son-in-law. They brought her to [facility] yesterday (12/22/2023). There, x-rays and a CT scan were obtained. This revealed a valgus impacted left femoral neck fracture. Orthopedics was consulted to assist with further management of this musculoskeletal injury. She does have a history of PE, per her daughter (Jonna) who I spoke with on the phone. Her daughter does not recall an inciting event for the PE. She recalls approximately 06/2020 for that Meli had some difficulty walking to and from the mailbox or climbing a flight of stairs. This prompted some concern and an admission to a hospital where workup revealed PE. Since, she has been on Xarelto, per her daughter Jonna. Review of Systems Narrative: Today, Meli denies chest pain or shortness of breath. No blurred vision or double vision. The history of blood clots/PE is noteworthy and her current use of a blood thinner thought to be Xarelto. [facility] Social History What is your current living situation?: I presently have a place to live Problems where you live: no known problems Problems where you live details: no known problems In the past 12 months, utilities in danger of being shut off: no In past 12 months, lack of transportation kept you from medical appts, meetings, work, or getting things needed for daily living: no In the past 12 mos, have been you worried that your food would run out before you had money to buy more?: never true In the past 12 mos, the food you bought just didn't last and you didn't have money to buy more?: never true Highest level of school completed/degree received: 12th grade, no diploma Smoking Status: Never smoker Second hand tobacco smoke exposure: No How often do you have a drink containing alcohol: never AUDIT-C Alcohol total score: 0 Non-prescribed substance use: denies use Caffeine: Yes (Coffee) How often does anyone, including family, friends and others, physically hurt you : never How often does anyone, including family, friends and others, insult or talk down to you: never How often does anyone, including family, friends and others, threaten you with harm: never How often does anyone, including family, friends and others, scream or curse at you: never Meds Home Medications and Allergies Home Medications Medication Instructions Recorded Confirmed Type amlodipine 5 mg tablet 5 mg PO DAILY 07/24/23 12/23/23 History atenolol 50 mg tablet 50 mg PO DAILY 07/24/23 12/23/23 History glyburide 2.5 mg tablet 2.5 mg PO DAILY 07/24/23 12/23/23 History lovastatin 20 mg tablet 20 mg PO DAILY 07/24/23 12/23/23 History metformin 1,000 mg tablet 1,000 mg PO BID 07/24/23 12/23/23 History rivaroxaban 20 mg tablet (Xarelto) 20 mg PO DAILY 12/23/23 12/23/23 History sertraline 50 mg tablet 50 mg PO DAILY 12/23/23 12/23/23 History Allergies Allergy/AdvReac Type Severity Reaction Status Date / Time No Known Drug Allergies Allergy Verified 07/24/23 10:43 Ortho Exam Narrative Exam Narrative: Alert and orient x3. No acute distress today. Cooperative with the exam. Left hip exam shows no erythema, induration, or other cutaneous changes. No lacerations or abrasions. There is pain about the left groin with any hip range of motion or knee range of motion. Distally, neurologic intact in the superficial and deep peroneal as well as plantar distribution to sensory light touch and motor function. Palpable DP and PT pulse. Const Vital Signs, click to edit/add: Vital Signs - 24 hr 12/22/23 18:56 12/22/23 20:21 12/22/23 23:28 Temperature 97.7 F Pulse Rate Pulse Rate [Pulse Oximeter] 70 68 Respiratory Rate 18 16 Blood Pressure [Right Arm] Blood Pressure [Right Upper Arm] 145/79 H 127/83 Pulse Oximetry 96 99 93 Oxygen Delivery Method Room Air Room Air 12/23/23 01:10 12/23/23 01:10 12/23/23 01:42 Temperature 98.2 F Pulse Rate 73 Pulse Rate [Pulse Oximeter] 78 Respiratory Rate 16 16 Blood Pressure [Right Arm] 158/73 H Blood Pressure [Right Upper Arm] Pulse Oximetry 92 Oxygen Delivery Method Room Air 12/23/23 03:05 12/23/23 08:02 Temperature 98.9 F 97.7 F Pulse Rate Pulse Rate [Pulse Oximeter] 80 73 Respiratory Rate 16 16 Blood Pressure [Right Arm] 162/72 H 143/68 H Blood Pressure [Right Upper Arm] Pulse Oximetry 94 90 Oxygen Delivery Method Room Air Room Air Results Labs Labs: Laboratory Results - last 48 hr 12/22/23 12/22/23 12/23/23 19:55 23:45 07:53 WBC 11.25 H 7.85 RBC 3.90 L 3.56 L Hgb 11.5 L 10.7 L 10.4 L Hct 35.0 31.7 L MCV 90 89 MCH 30 29 MCHC 33 33 RDW Coeff of Giovanni 12.9 13.0 Plt Count 252 206 Neut % (Auto) 87.2 H 81.7 H Lymph % (Auto) 7.8 L 11.7 L Crane % (Auto) 4.2 5.1 Eos % (Auto) 0.1 1.1 Baso % (Auto) 0.1 0.1 Neut # (Auto) 9.80 H 6.40 Lymph # (Auto) 0.90 0.90 Crane # (Auto) 0.50 0.40 Eos # (Auto) 0.00 0.09 Baso # (Auto) 0.00 0.01 Abs Immat Gran (auto) 0.10 0.02 Imm/Tot Granulo (auto) 0.6 0.3 Sodium 135 136 Potassium 5.0 4.9 Chloride 104 103 Carbon Dioxide 21 26 Anion Gap 10 7 BUN 27 24 Creatinine 1.4 1.3 Estimated Creat Clear 27.40 29.50 Estimated GFR 37 41 Glucose 210 H 170 H Lactate 1.3 Calcium 10.0 9.5 Total Bilirubin 0.3 AST 24 ALT 16 Alkaline Phosphatase 46 Total Protein 8.1 Albumin 4.7 Diagnostic results Additional Comments: Multiple images were obtained from [facility] dated 12/22/2023 that were ordered by a different provider but reviewed by me. These include the following: * AP pelvis and AP and cross-table lateral view left hip - this shows suspicion of left femoral neck fracture that appears valgus impacted. Medial cortex appears still in place. A incidentally, right femoral neck has undergone cannulated screw fixation of previous femoral neck fracture. The hardware appears stable. The femoral neck fracture appears united. And finally, lumbar degenerative disc disease changes noted of the lower lumbar visualized spine. * three views of the left shoulder. No acute fractures, avulsions, or intraosseous pathology. No signs of AVN. * CT scan left hip shows valgus impacted left femoral neck fracture that appears acute. Medial cortex appears intact. Well aligned on the sagittal images. Assessment and Plan Assessment and plan (1) Closed subcapital fracture of femur: Status: Acute Total time spent: Total time spent is greater than 50% in coordination of care (as documented) at patient's floor/unit and/or counseling patient: (2) Chronic anticoagulation: Status: Acute Total time spent: Total time spent is greater than 50% in coordination of care (as documented) at patient's floor/unit and/or counseling patient: (3) History of pulmonary embolism: Status: Acute Total time spent: Total time spent is greater than 50% in coordination of care (as documented) at patient's floor/unit and/or counseling patient: (4) Accelerated hypertension: Status: Acute Total time spent: Total time spent is greater than 50% in coordination of care (as documented) at patient's floor/unit and/or counseling patient: Plan I had a good discussion today with Meli in-person and her daughter, Jonna, on the phone. I helped them understand her current situation. This is very similar to the contralateral right hip that she previously underwent cannulated screw fixation for femoral neck fracture for. The left femoral neck fracture is valgus impacted. I do think surgical treatment is prudent. And I would recommend cannulated screw fixation. We discussed the risks, benefits, and alternatives to this surgery. I believe all questions were answered. We talked with the postoperative timing and prognosis and expectations as well. I was able to converse with the hospitalist and coordinate care as well for Meli. The fact that she is on a blood thinner for VTE is noteworthy. This will be of delicate balance between having their be too much blood loss during surgery and having her at too high of a risk for blood clot recurrence. After mutual discussion with the hospitalist team, is felt that proceeding with surgery tomorrow morning (12/24/2023) is appropriate. Of her see that she will be able to return to a blood thinner later that day.
[2023-12-23] MEDS: LOVASTATIN 20 MG TABLET PO (09:01)
[2023-12-23] MEDS: atenoloL 50 MG TABLET PO (09:02)
[2023-12-23] MEDS: AMLODIPINE 5 MG TABLET PO (09:02)
[2023-12-23] MEDS: ACETAMINOPHEN 500 MG TABLET 1000 MG PO ×3 (09:02→21:19)
[2023-12-23] MEDS: GABAPENTIN 100 MG CAPSULE PO ×3 (09:02→21:19)
--- NOTE | 2023-12-23 12:10 | PM.IMPN1 ---
Progress Note: A&P Assessment and plan (1) Closed subcapital fracture of femur: Problem details: Discussed with Orthopedic surgery, Dr. Daigle, plan for cannulated screw fixation tomorrow morning 12/24/2023 NPO after midnight Pain management as needed Holding anticoagulation (last dose either 12/20 or 12/21), likely to resume tomorrow evening following surgery per discussion with surgery Status: Acute (2) Chronic anticoagulation: Problem details: For history of PE Chronic Xarelto (confirmed with pharmacy/home med list). Unknown last dose either 12/20 or 12/21 pm Status: Acute (3) History of pulmonary embolism: Problem details: Chronic Xarelto (confirmed with pharmacy/home med list). Unknown last dose either 12/20 or 12/21 Status: Acute (4) Hypertension: Problem details: Continue amlodipine, atenolol Status: Acute (5) Hyperlipidemia: Problem details: Continue statin Status: Acute (6) Diabetes mellitus: Problem details: Most recent A1c 6.9 Continue glyburide, hold metformin Glucose ACHS, ISS Encourage diabetic diet choices Status: Acute (7) CKD (chronic kidney disease): Problem details: Creatinine 1.3, currently at baseline Avoid nephrotoxic medications, continue to monitor Status: Acute Plan To OR on 12/23 Time Spent With Patient Total time spent: Total time spent caring for the patient today was 60 minutes. This includes time spent for the visit reviewing the chart, time spent during the visit, time spent after the visit and documentation and planning in coordination of care. Subjective Date Seen: 12/23/23 Interval history: Patient reports feeling pretty good this morning. Hip pain is manageable while resting. Denies chest pain or shortness of breath. Denies nausea or vomiting. Has been afebrile. To clarify, patient's H&P reports abdominal pain, rectal pain, rectal bleeding and intermittent nausea. THIS WOULD BE AN ERROR AND DOES NOT PERTAIN TO THIS PATIENT. Patient denies any recent or history of GI bleed. Patient does take Xarelto. Has a history of chronic saddle PE with cor pulmonale. Her medications are set up for her and she believes her last dose would have been Monday though she cannot say for certain. Exam Narrative: Exam Narrative: PHYSICAL EXAM General: Pleasant, conversant, NAD HEENT: Normocephalic, atraumatic, sclera white, EOMI, oral mucosa moist Cardiovascular: RRR, S1S2. No pitting edema Pulmonary: CTA bilaterally without rhonchi, rales, expiratory wheezes. No dyspnea on room air Abdominal: Soft, nondistended, NTTP Neurological: Alert, answering questions appropriately, cranial nerves intact, no focal findings Extremities: No gross joint deformity or swelling. Neurovascularly intact Skin: Warm, dry. Const: Vital Signs, click to edit/add: Vital Signs - 24 hr 12/22/23 18:56 12/22/23 20:21 12/22/23 23:28 Temperature 97.7 F Pulse Rate Pulse Rate [Pulse Oximeter] 70 68 Respiratory Rate 18 16 Blood Pressure [Ri ght Arm] Blood Pressure [Ri ght Upper Arm] 145/79 H 127/83 Pulse Oximetry 96 99 93 Oxygen Delivery Me thod Room Air Room Air 12/23/23 01:10 12/23/23 01:10 12/23/23 01:42 Temperature 98.2 F Pulse Rate 73 Pulse Rate [Pulse Oximeter] 78 Respiratory Rate 16 16 Blood Pressure [Ri ght Arm] 158/73 H Blood Pressure [Ri ght Upper Arm] Pulse Oximetry 92 Oxygen Delivery Me thod Room Air 12/23/23 03:05 12/23/23 08:02 12/23/23 11:50 Temperature 98.9 F 97.7 F 98.1 F Pulse Rate Pulse Rate [Pulse Oximeter] 80 73 71 Respiratory Rate 16 16 16 Blood Pressure [Ri ght Arm] 162/72 H 143/68 H 125/65 Blood Pressure [Ri ght Upper Arm] Pulse Oximetry 94 90 93 Oxygen Delivery Me thod Room Air Room Air Room Air Labs Labs: Laboratory Results - last 24 hr 12/22/23 12/22/23 12/23/23 19:55 23:45 07:53 WBC 11.25 H 7.85 RBC 3.90 L 3.56 L Hgb 11.5 L 10.7 L 10.4 L Hct 35.0 31.7 L MCV 90 89 MCH 30 29 MCHC 33 33 RDW Coeff of Giovanni 12.9 13.0 Plt Count 252 206 Neut % (Auto) 87.2 H 81.7 H Lymph % (Auto) 7.8 L 11.7 L Marin % (Auto) 4.2 5.1 Eos % (Auto) 0.1 1.1 Baso % (Auto) 0.1 0.1 Neut # (Auto) 9.80 H 6.40 Lymph # (Auto) 0.90 0.90 Marin # (Auto) 0.50 0.40 Eos # (Auto) 0.00 0.09 Baso # (Auto) 0.00 0.01 Abs Immat Gran (auto) 0.10 0.02 Imm/Tot Granulo (auto) 0.6 0.3 Sodium 135 136 Potassium 5.0 4.9 Chloride 104 103 Carbon Dioxide 21 26 Anion Gap 10 7 BUN 27 24 Creatinine 1.4 1.3 Estimated Creat Clear 27.40 29.50 Estimated GFR 37 41 Glucose 210 H 170 H Lactate 1.3 Calcium 10.0 9.5 Total Bilirubin 0.3 AST 24 ALT 16 Alkaline Phosphatase 46 Total Protein 8.1 Albumin 4.7
--- NOTE | 2023-12-23 12:35 | REH.PT ---
Received PT orders 12/22/23. Per charge nurse pt scheduled for hip ORIF morning of 12/23. Reschedule PT eval post-op.
[2023-12-23] MEDS: INSULIN ASPART 100 UNIT/ML SUBCUT ×2 (16:59→21:20)
[2023-12-24] VITALS (29 sets, daily range): BP systolic 97–148; BP diastolic 41–72; PULSE 62–89; RESP 12–16; TEMP 35.7–37.2; O2SAT 90–100
[2023-12-24] MEDS: OXYCODONE 5 MG TABLET PO (00:47)
[2023-12-24] MEDS: SODIUM CHLORIDE 0.9 % (FLUSH) 10 ML SYRINGE 5 ML IVF (00:55)
[2023-12-24] MEDS: 0.9 % SODIUM CHLORIDE 1000 ml 1,000 ML 75 ML IV ×2 (04:57→10:11)
--- NOTE | 2023-12-24 06:15 | PC.NURSE ---
Pt alert and oriented to self and place.?Pt reports 5/10 pain in left hip, pain managed with PRN medications. Pt?s antoine catheter is patent and draining. Pt pulled out IV with catheter intact, New IV placed in left forearm, pt tolerated well. Pt took tele off x2 thinking the cords were tangled. Pt has been?NPO since 0000 and tolerating well. Pt slept intermittently throughout night. ?
[2023-12-24 06:20] LABS: Hematocrit 31.5 % (33.0-51.0); Hemoglobin* 10.2 gm/dL (12.0-16.0); Mean Corpuscular HGB Conc 32 gm/dL (32-36); Mean Corpuscular Hemoglobin 29 pg (26-34); Mean Corpuscular Volume 91 fL (80-100); Platelet Count* 194 K/uL (140-440); Red Blood Count 3.48 m/uL (4.00-5.20); White Blood Count* 7.49 K/uL (4.50-11.00)
[2023-12-24 06:35] LABS: Slide Review Reflex No
[2023-12-24 06:59] LABS: Creatinine* 1.3 mg/dL (0.5-1.5); Estimated Glomerular Filt Rate 41 ml/min
[2023-12-24 07:00] LABS: Blood Urea Nitrogen* 23 mg/dL (7-30); Calcium* 9.5 mg/dL (8.4-10.6); Carbon Dioxide* 24 mmol/L (20-32); Glucose* 165 mg/dL (60-115)
[2023-12-24 07:22] LABS: Anion Gap 7 mEq/L (7-15); Chloride* 106 mmol/L (96-114); Potassium* 4.4 mmol/L (3.6-5.1); Sodium* 137 mmol/L (135-149)
[2023-12-24] MEDS: LOVASTATIN 20 MG TABLET PO (08:32)
[2023-12-24] MEDS: SERTRALINE 50 MG TABLET PO (08:32)
[2023-12-24] MEDS: ACETAMINOPHEN 500 MG TABLET 1000 MG PO ×2 (08:32→20:33)
[2023-12-24] MEDS: GABAPENTIN 100 MG CAPSULE PO ×2 (08:32→20:33)
[2023-12-24] MEDS: AMLODIPINE 5 MG TABLET PO (08:32)
--- NOTE | 2023-12-24 09:00 | XR_ITS ---
Patient: JERICA POSADAS Facility:?[facility] Patient ID:?[id number] Site Patient ID:?[id number] Site :?[id number] Study:?XRay-Hip Left Intraop-12/24/2023 10:29:39 AM Ordering Physician:Trip Amador Final Report: INDICATION: Left femoral TECHNIQUE: Two intraoperative fluoroscopic images Findings: 2 intraoperative fluoroscopic images demonstrate surgical fixation of a left femoral neck fracture with 2 screws fixating the left femoral neck. 1 minute 1 second fluoro time Dictated by Joceline Ball MD @ 12/24/2023 10:45:05 AM Signed by:?Joceline Ball MD @12/24/2023 10:45:05 AM (Electronic Signature)
[2023-12-24] MEDS: CEFAZOLIN 1 GM inj IVP (09:25)
--- NOTE | 2023-12-24 09:55 | SUR.OPER ---
PATIENT QUESTIONS ANSWERED SATISFACTORILY PREOPERATIVELY. PATIENT BROUGHT TO OR #3 PER M/S BED, ADMINISTRATION OF A BLOCK IN O.R.#3. Patient positioned supine on OR #3 HANA bed. The perioperative team supported arms bilaterally on arm boards. Final approval of positioning by surgeon.
--- NOTE | 2023-12-24 10:09 | PM.ORPRC ---
Procedure Note Date of procedure: 12/24/23 Procedure: PREOPERATIVE DIAGNOSES: 1. Left femoral neck fracture, valgus impacted, acute, closed POSTOPERATIVE DIAGNOSES: 1. Left femoral neck fracture, valgus impacted, acute, closed NAME OF OPERATION: 1. Left femur closed reduction and percutaneous pinning 2. 31303 - intraoperative fluoroscopy up to 1 hour. SURGEON: Trip Daigle MD WEED CONTROLLER: Victoria Guan PA-C. Of note, an elder assistant was critical for this case to aide in patient positioning, extremity positioning, tissue retraction, instrument manipulation, and closure. ANESTHESIA: Spinal EBL: 50 mL IMPLANTS: Synthes 7.3 mm cannulated partially-threaded titanium screws (x3); single washer COMPLICATIONS: None evident INDICATIONS: The patient is a pleasant, 83-year-old female who unfortunately sustained a fall within the last 24 hours. They landed on their left hip and were unable to bear weight. They experienced significant pain which prompted a visit to [facility]. X-rays were obtained and revealed a proximal femur fracture consistent with a valgus impacted femoral neck fracture. Given these findings, along with the desire to help with pain control and improved mobility / mobilization, surgery was recommended to stabilize the fracture and prevent it from displacing. PROCEDURE: Following a thorough discussion of risks, benefits, and alternatives, consent was obtained and the left hip was marked. After obtaining proper medical evaluation determining the patient was optimized prior to surgery, they were brought to the operating room and placed supine on the operating table. Induction of anesthesia undertaken. 1 g IV Ancef was administered within 1 hr of incision preoperatively. Proper time-out was performed identifying proper patient, site, and procedure. The operative extremity was prepped & draped in the appropriate sterile fashion using ChloraPrep after the patient was positioned on the [place] table with the head in neutral alignment all bone prominences well padded. C-arm fluoroscopic imaging was utilized to obtain AP and lateral views of the operative hip. This indeed confirmed proper position of the proximal femur fracture in a valgus impacted manner. 10 blade skin incision was made distal to the greater trochanteric tip. Sharp incision through skin and ITB band allowed palpation of the proximal femur just distal to the greater trochanteric tip. A partially threaded guidewire was initially placed near the center of the femoral neck position on both AP and lateral planes. 2 more pins were placed in a parallel fashion with the goal of staying slightly proximal to the lesser trochanteric level on the lateral proximal femur, and hugging the inferior femoral neck cortex with the first and more cephalad with the next 2 pins. The pins were confirmed to be within the femoral neck and head on AP and lateral views. Following this, the cannulated Reamer was utilized to create passage for the eventual screw. Screws were measured, and partially-threaded screws were passed without difficulty. Of note, a washer was placed for the inferior screw. C-arm confirmed these to be intraosseous and not penetrate to the femoral head on either view. The guidewires were removed and closure performed with # 0 Vicryl for the ITB band, 2-O Vicryl and 4-0 Monocryl for subcutaneous and subcuticular closure, respectively. The patient was awoken from anesthesia and transferred to the PACU in stable condition. PLAN: 1. Weight bear as tolerated operative lower extremity. 2. Encouraged ice. 3. Oxycodone for pain as needed. 4. 23 hr perioperative antibiotics. 5. Chemoprophylaxis for DVT prophylaxis along with SCDs.
--- NOTE | 2023-12-24 10:54 | P.ANES_ITS ---
Anesthesia Charges Start Date/Time Anesthesia Start Date: 12/24/23 Anesthesia Start Time: 09:00 Stop Date/Time Anesthesia Stop Date: 12/24/23 Anesthesia Stop Time: 10:30 Summary Emergency: ADMINISTRATIVE TECH Extremes of Age - Over 70 or under 1: ADMINISTRATIVE TECH
--- NOTE | 2023-12-24 10:54 | W.ANESCHARGE ---
Anesthesia Charges Start Date/Time Anesthesia Start Date: 12/24/23 Anesthesia Start Time: 09:00 Stop Date/Time Anesthesia Stop Date: 12/24/23 Anesthesia Stop Time: 10:30 Summary Emergency: COVER MAKER Extremes of Age - Over 70 or under 1: COVER MAKER
--- NOTE | 2023-12-24 10:56 | W.PM.NB ---
Nerve Block Nerve Block Time Seen by Provider: 09:05 Date Seen: 12/24/23 Type of block requested by surgeon for post-operative analgesia: SHASHI/LFCN Side: left Time out performed: Yes Verification of patient name: Yes Verification of date of : Yes Site marking: site marked Name of person performing procedure: Jose Lance Continuous monitoring Was continuous monitoring of O2 sat, B/P, ekg monitor tech, recorded every 15 minutes?: Yes Procedure Checklist: sterile prep, needles and gloves Ultrasound guided. Images saved: Yes Medications given in 5ml increments after negative aspiration: Ropivicaine %: 0.5 mL: 30 Needle gauge: 21 Decadron (mg): 10 Precedex (mcg): 25 Patient tolerated procedure well: Yes Additional comments: Injected in 5mL increments after negative aspiration Block Charges Block Charge (with Pro Fee): Other Periph Nerve Block Use of Ultrasound Machine for Block: Yes- US Guidance/pain block
--- NOTE | 2023-12-24 12:30 | PM.IMPN1 ---
Progress Note: A&P Assessment and plan (1) Closed subcapital fracture of femur: Problem details: POD#0 s/p cannulated screw fixation, Dr. Daigle No perioperative complications reported. Estimated blood loss 50 mL reported. Resting comfortably, requiring small amount oxygen postoperatively WBAT post operatively Pain management as needed Resume anticoagulation 12/25/2023 Status: Acute (2) Chronic anticoagulation: Problem details: For history of PE Chronic Xarelto (confirmed with pharmacy/home med list) Resume 12/25/2023 Status: Acute (3) History of pulmonary embolism: Problem details: Chronic Xarelto (confirmed with pharmacy/home med list). Unknown last dose either 12/20 or 12/21 Status: Acute (4) Hypertension: Problem details: Continue amlodipine, atenolol Status: Acute (5) Hyperlipidemia: Problem details: Continue statin Status: Acute (6) Diabetes mellitus: Problem details: Most recent A1c 6.9 Continue glyburide, hold metformin Glucose ACHS, ISS Encourage diabetic diet choices Status: Acute (7) CKD (chronic kidney disease): Problem details: Creatinine 1.3, currently at baseline Avoid nephrotoxic medications, continue to monitor Status: Acute Plan Discharge planning with Orthopedic surgery along with therapies Time Spent With Patient Total time spent: Total time spent caring for the patient today was 45 minutes. This includes time spent for the visit reviewing the chart, time spent during the visit, time spent after the visit and documentation and planning in coordination of care. Subjective Date Seen: 12/24/23 Interval history: Patient is seen preoperatively today. Reports sleeping well. Pain continues to be well managed at rest. Denies headache or dizziness. Has not been nauseous. Has remained afebrile and vitally stable. Exam Narrative: Exam Narrative: PHYSICAL EXAM General: Pleasant, conversant, NAD Cardiovascular: RRR, S1S2. No pitting edema Pulmonary: CTA bilaterally without rhonchi, rales, expiratory wheezes. No dyspnea on room air Abdominal: Soft, nondistended, NTTP Neurological: Alert, answering questions appropriately, cranial nerves intact, no focal findings Extremities: No gross joint deformity or swelling. Remains neurovascularly intact Skin: Warm, dry. Const: Vital Signs, click to edit/add: Vital Signs - 24 hr 12/23/23 16:05 12/23/23 19:30 12/23/23 19:45 Temperature 98.5 F 98.6 F Pulse Rate Pulse Rate [Pulse Oximeter] 67 73 Respiratory Rate 16 16 16 Blood Pressure Blood Pressure [Ri ght Arm] 108/63 149/70 H Pulse Oximetry 90 90 Oxygen Delivery Me thod Room Air Room Air Oxygen Flow Rate 12/23/23 21:25 12/23/23 22:01 12/24/23 01:05 Temperature 98.6 F 99.0 F Pulse Rate 81 Pulse Rate [Pulse Oximeter] 79 73 Respiratory Rate 16 16 Blood Pressure Blood Pressure [Ri ght Arm] 161/76 H 119/72 Pulse Oximetry 89 92 Oxygen Delivery Me thod Room Air Room Air Oxygen Flow Rate 12/24/23 07:33 12/24/23 08:35 12/24/23 10:25 Temperature 98.7 F 97.5 F L Pulse Rate 71 66 Pulse Rate [Pulse Oximeter] 73 Respiratory Rate 16 14 Blood Pressure 97/41 L Blood Pressure [Ri ght Arm] 148/70 H Pulse Oximetry 90 98 Oxygen Delivery Me thod Room Air OxyMask Oxygen Flow Rate 10 12/24/23 10:30 12/24/23 10:35 12/24/23 10:40 Temperature 97.6 F Pulse Rate 67 63 64 Pulse Rate [Pulse Oximeter] Respiratory Rate 16 14 14 Blood Pressure 101/45 L 101/45 L 106/48 L Blood Pressure [Ri ght Arm] Pulse Oximetry 100 100 100 Oxygen Delivery Me thod OxyMask OxyMask OxyMask Oxygen Flow Rate 10 10 6 12/24/23 10:45 12/24/23 10:50 12/24/23 10:55 Temperature 97.6 F Pulse Rate 64 66 69 Pulse Rate [Pulse Oximeter] Respiratory Rate 16 14 14 Blood Pressure 107/48 L 110/48 L 109/51 L Blood Pressure [Ri ght Arm] Pulse Oximetry 100 100 100 Oxygen Delivery Me thod OxyMask OxyMask Room Air Oxygen Flow Rate 6 6 12/24/23 11:00 12/24/23 11:05 12/24/23 11:10 Temperature 97.4 F L Pulse Rate 68 64 67 Pulse Rate [Pulse Oximeter] Respiratory Rate 12 14 14 Blood Pressure 111/51 L 109/55 L 110/48 L Blood Pressure [Ri ght Arm] Pulse Oximetry 96 94 95 Oxygen Delivery Me thod Room Air Room Air Room Air Oxygen Flow Rate 12/24/23 11:15 12/24/23 11:20 12/24/23 11:30 Temperature 97.4 F L 96.3 F L Pulse Rate 66 69 62 Pulse Rate [Pulse Oximeter] Respiratory Rate 14 16 14 Blood Pressure 113/51 L 118/50 L 118/53 L Blood Pressure [Ri ght Arm] Pulse Oximetry 94 93 91 Oxygen Delivery Me thod Room Air Room Air Room Air Oxygen Flow Rate 1 Labs Labs: Laboratory Results - last 24 hr 12/24/23 05:29 WBC 7.49 RBC 3.48 L Hgb 10.2 L Hct 31.5 L MCV 91 MCH 29 MCHC 32 Plt Count 194 Sodium 137 Potassium 4.4 Chloride 106 Carbon Dioxide 24 Anion Gap 7 BUN 23 Creatinine 1.3 Estimated Creat Clear 29.50 Estimated GFR 41 Glucose 165 H Calcium 9.5
[2023-12-24] MEDS: LACTATED RINGERS 1000 ML 1,000 ML 75 ML IV (12:47)
[2023-12-24] MEDS: CEFAZOLIN 2 GM in 0.9 % SODIUM CHLORIDE Mini-bag 100 ML IVPB (15:36)
[2023-12-24] MEDS: INSULIN ASPART 100 UNIT/ML SUBCUT ×2 (17:01→20:33)
--- NOTE | 2023-12-24 19:40 | PC.NURSE ---
Pt alert and oriented. Pt had no complaints of pain. Pt has been on bed rest. Pt brought to surgery this morning (12/23) at 9am. Pt arrived back to floor at 1130am. Pt slept most of the shift after surgery; Pt started to arouse around 1600. Family at bedside on and off throughout shift and after Pt was awake. Pt advanced to regular diet and tolerated well.? ?
[2023-12-24] MEDS: SENNOSIDES 1 TAB TABLET 2 TAB PO (20:33)
[2023-12-25] MEDS: CEFAZOLIN 2 GM in 0.9 % SODIUM CHLORIDE Mini-bag 100 ML IVPB ×2 (00:47→10:26)
[2023-12-25] MEDS: LACTATED RINGERS 1000 ML 1,000 ML 75 ML IV (03:21)
[2023-12-25 03:23] VITALS: BP 140/69; PULSE 84; RESP 16; TEMP 37.2; O2SAT 94
--- NOTE | 2023-12-25 06:41 | PC.NURSE ---
Pt alert and oriented to self and place. Pt denies pain in left hip, ice pack to site. Pt?s left hip dressing is CDI. Pt?s antoine catheter was removed around 0630 with catheter its tact, pt tolerated well. Pt is up A1/2 with walker and gait belt.?Pt slept throughout most of night. ?
[2023-12-25 07:04] LABS: Hematocrit 26.4 % (33.0-51.0); Hemoglobin* 8.7 gm/dL (12.0-16.0); Mean Corpuscular HGB Conc 33 gm/dL (32-36); Mean Corpuscular Hemoglobin 29 pg (26-34); Mean Corpuscular Volume 89 fL (80-100); Platelet Count* 189 K/uL (140-440); Red Blood Count 2.96 m/uL (4.00-5.20); White Blood Count* 10.51 K/uL (4.50-11.00)
[2023-12-25 07:10] LABS: Chloride* 110 mmol/L (96-114)
[2023-12-25 07:11] LABS: Potassium* 4.7 mmol/L (3.6-5.1); Slide Review Reflex No; Sodium* 137 mmol/L (135-149)
[2023-12-25 07:13] LABS: Creatinine* 1.2 mg/dL (0.5-1.5); Est. Creatinine Clearance* 31.96; Estimated Glomerular Filt Rate 45 ml/min
[2023-12-25 07:14] LABS: Anion Gap 4 mEq/L (7-15); Blood Urea Nitrogen* 23 mg/dL (7-30); Calcium* 9.4 mg/dL (8.4-10.6); Carbon Dioxide* 23 mmol/L (20-32); Glucose* 177 mg/dL (60-115)
--- NOTE | 2023-12-25 07:42 | P.ORPN_ITS ---
Subjective Subjective Date Seen: 12/25/23 Interval history: She reports no fevers or chills. No chest pain or shortness of breath overnight. She notes her left hip pain is reasonable. Consistent with expected surgical invasiveness. She has not attempted to weightbear extensively yet. Ortho Exam Narrative Exam Narrative: Left hip Dressing appears dry and intact. Thigh shows mild swelling as be expected. Palpable DP and PT pulse. Neurologic intact distally in the superficial and deep peroneal as well as plantar distribution. Const Vital Signs, click to edit/add: Vital Signs - 24 hr 12/24/23 08:35 12/24/23 10:25 12/24/23 10:30 Temperature 97.5 F L Pulse Rate 71 66 67 Pulse Rate [Pulse Oximeter] Respiratory Rate 14 16 Blood Pressure 97/41 L 101/45 L Blood Pressure [Right Arm] Pulse Oximetry 98 100 Oxygen Delivery Method OxyMask OxyMask Oxygen Flow Rate 10 10 12/24/23 10:35 12/24/23 10:40 12/24/23 10:45 Temperature 97.6 F Pulse Rate 63 64 64 Pulse Rate [Pulse Oximeter] Respiratory Rate 14 14 16 Blood Pressure 101/45 L 106/48 L 107/48 L Blood Pressure [Right Arm] Pulse Oximetry 100 100 100 Oxygen Delivery Method OxyMask OxyMask OxyMask Oxygen Flow Rate 10 6 6 12/24/23 10:50 12/24/23 10:55 12/24/23 11:00 Temperature 97.6 F Pulse Rate 66 69 68 Pulse Rate [Pulse Oximeter] Respiratory Rate 14 14 12 Blood Pressure 110/48 L 109/51 L 111/51 L Blood Pressure [Right Arm] Pulse Oximetry 100 100 96 Oxygen Delivery Method OxyMask Room Air Room Air Oxygen Flow Rate 6 12/24/23 11:05 12/24/23 11:10 12/24/23 11:15 Temperature 97.4 F L Pulse Rate 64 67 66 Pulse Rate [Pulse Oximeter] Respiratory Rate 14 14 14 Blood Pressure 109/55 L 110/48 L 113/51 L Blood Pressure [Right Arm] Pulse Oximetry 94 95 94 Oxygen Delivery Method Room Air Room Air Room Air Oxygen Flow Rate 12/24/23 11:20 12/24/23 11:30 12/24/23 11:45 Temperature 97.4 F L 96.3 F L 96.4 F L Pulse Rate 69 62 65 Pulse Rate [Pulse Oximeter] Respiratory Rate 16 14 14 Blood Pressure 118/50 L 118/53 L 123/55 L Blood Pressure [Right Arm] Pulse Oximetry 93 91 91 Oxygen Delivery Method Room Air Room Air Room Air Oxygen Flow Rate 1 1 12/24/23 12:00 12/24/23 12:15 12/24/23 12:30 Temperature 96.4 F L 97.0 F L 97.0 F L Pulse Rate 64 64 64 Pulse Rate [Pulse Oximeter] Respiratory Rate 14 16 16 Blood Pressure 117/55 L 117/55 L 112/51 L Blood Pressure [Right Arm] Pulse Oximetry 90 94 93 Oxygen Delivery Method Room Air Room Air Room Air Oxygen Flow Rate 1 1 1 12/24/23 13:00 12/24/23 13:30 12/24/23 14:00 Temperature 97.2 F L 97.3 F L 97.6 F Pulse Rate 72 71 73 Pulse Rate [Pulse Oximeter] Respiratory Rate 16 16 16 Blood Pressure 117/55 L 142/65 H 134/67 Blood Pressure [Right Arm] Pulse Oximetry 94 94 93 Oxygen Delivery Method Room Air Room Air Room Air Oxygen Flow Rate 1 1 0.5 12/24/23 15:00 12/24/23 16:00 12/24/23 17:00 Temperature 97.6 F 97.7 F 98.3 F Pulse Rate 70 77 79 Pulse Rate [Pulse Oximeter] Respiratory Rate 16 16 16 Blood Pressure 132/61 141/72 H 141/72 H Blood Pressure [Right Arm] Pulse Oximetry 94 95 92 Oxygen Delivery Method Room Air Room Air Room Air Oxygen Flow Rate 0 0 0 12/24/23 17:00 12/24/23 20:25 12/24/23 22:28 Temperature 98.3 F 98.0 F 98.1 F Pulse Rate 79 Pulse Rate [Pulse Oximeter] 88 89 Respiratory Rate 16 16 16 Blood Pressure 126/59 L Blood Pressure [Right Arm] 135/59 L 134/61 Pulse Oximetry 92 92 94 Oxygen Delivery Method Room Air Room Air Room Air Oxygen Flow Rate 12/24/23 22:46 12/25/23 03:23 Temperature 98.9 F Pulse Rate Pulse Rate [Pulse Oximeter] 84 Respiratory Rate 16 16 Blood Pressure Blood Pressure [Right Arm] 140/69 H Pulse Oximetry 94 Oxygen Delivery Method Room Air Oxygen Flow Rate 0 Assessment and Plan Assessment and plan (1) Closed subcapital fracture of femur: Status: Acute Plan POD#1 s/p cannulated screw fixation left femoral neck fracture No perioperative complications reported. WBAT post operatively Pain management as needed Resume anticoagulation 12/25/2023 Anticipate need for senior living facility/rehab facility following hospitalization. From an orthopedic standpoint, I think the patient is able to be discharged/transferred if and when medically appropriate/medically she is sta ble. F/U PA visit in [address] Daigle 8-9 week paxton I coordinated care this morning with the hospitalist team (Dr. Crews.)
[2023-12-25] MEDS: INSULIN ASPART 100 UNIT/ML SUBCUT (09:08)
[2023-12-25] MEDS: AMLODIPINE 5 MG TABLET PO (09:09)
[2023-12-25] MEDS: GABAPENTIN 100 MG CAPSULE PO ×3 (09:09→20:46)
[2023-12-25] MEDS: LOVASTATIN 20 MG TABLET PO (09:09)
[2023-12-25] MEDS: atenoloL 50 MG TABLET PO (09:09)
[2023-12-25] MEDS: SERTRALINE 50 MG TABLET PO (09:09)
[2023-12-25] MEDS: SENNOSIDES 1 TAB TABLET 2 TAB PO ×2 (09:10→20:45)
[2023-12-25] MEDS: RIVAROXABAN 10 MG TABLET PO (09:10)
[2023-12-25] MEDS: glyBURIDE 5 MG TABLET 2.5 MG PO (09:10)
[2023-12-25] MEDS: SODIUM CHLORIDE 0.9 % (FLUSH) 10 ML SYRINGE 5 ML IVF ×2 (09:10→20:46)
[2023-12-25] MEDS: ACETAMINOPHEN 500 MG TABLET 1000 MG PO ×3 (09:10→20:46)
[2023-12-25 10:17] VITALS: BP 145/62; PULSE 72; RESP 20; TEMP 36.7; O2SAT 96
--- NOTE | 2023-12-25 11:11 | PM.IMPN1 ---
Progress Note: A&P Assessment and plan (1) Closed subcapital fracture of femur: Problem details: - s/p left femur closed reduction and percutaneous pinning with Dr. 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 - restarted 10mg on POD #1 (12/23), awaiting repeat Hgb to determine increase to home dose of 20mg on 12/25 Status: Acute (3) Diabetes mellitus: Problem details: - most recent A1c 6.9 - Continue glyburide, restart Metformin on 12/24 given normal po intake and stable creatinine - Glucose ACHS, ISS Status: Acute (4) CKD (chronic kidney disease): Problem details: - Creatinine 1.2-1.3, currently at baseline - Avoid nephrotoxic medications, continue to monitor Status: Acute (5) Hyperlipidemia: Problem details: - continue home dose of statin Status: Acute (6) Hypertension: Problem details: - currently has age-appropriate control of blood pressure with home doses of Amlodipine and Atenolol Status: Acute (7) Acute blood loss anemia: Problem details: - Recent surgery, anticoagulated - follow hemoglobin Status: Acute Plan - per above - likely to SNF tomorrow, appreciate input from therapies - daughter Catarina updated by phone, questions answered Subjective Date Seen: 12/25/23 Interval history: Meli was admitted to the hospital on 12/22 for a L hip fracture after a mechanical fall. She is POD #1 from left femur closed reduction and percutaneous pinning with Dr. Daigle of Orthopedic Surgery (12/24/23). This morning, she is feeling quite good, up in the chair eating breakfast. She is not complaining of chest pain, dyspnea, or lightheadedness. No abdominal pain, tolerating po intake. Working with therapy teams. History of PE, her Xarelto was restarted postoperatively. This morning, her Hgb dropped from 10.2 --> 8.7 Exam Narrative: Exam Narrative: GEN: Alert and oriented, nontoxic HEENT: EOMIs bilaterally, no scleral icterus or conjunctival pallor CV: RRR, No concerning murmurs R: LCTA bilaterally without concerning wheezing Ext: wwp, no concerning edema Skin: No concerning skin lesions or rashes on exposed skin Neuro: Nonfocal Psych: Appropriate Const: Vital Signs, click to edit/add: Vital Signs - 24 hr 12/24/23 11:15 12/24/23 11:20 12/24/23 11:30 Temperature 97.4 F L 96.3 F L Pulse Rate 66 69 62 Pulse Rate [Pulse Oximeter] Respiratory Rate 14 16 14 Blood Pressure 113/51 L 118/50 L 118/53 L Blood Pressure [Ri ght Arm] Pulse Oximetry 94 93 91 Oxygen Delivery Me thod Room Air Room Air Room Air Oxygen Flow Rate 1 12/24/23 11:45 12/24/23 12:00 12/24/23 12:15 Temperature 96.4 F L 96.4 F L 97.0 F L Pulse Rate 65 64 64 Pulse Rate [Pulse Oximeter] Respiratory Rate 14 14 16 Blood Pressure 123/55 L 117/55 L 117/55 L Blood Pressure [Ri ght Arm] Pulse Oximetry 91 90 94 Oxygen Delivery Ri thod Room Air Room Air Room Air Oxygen Flow Rate 1 1 1 12/24/23 12:30 12/24/23 13:00 12/24/23 13:30 Temperature 97.0 F L 97.2 F L 97.3 F L Pulse Rate 64 72 71 Pulse Rate [Pulse Oximeter] Respiratory Rate 16 16 16 Blood Pressure 112/51 L 117/55 L 142/65 H Blood Pressure [Ri ght Arm] Pulse Oximetry 93 94 94 Oxygen Delivery Ri thod Room Air Room Air Room Air Oxygen Flow Rate 1 1 1 12/24/23 14:00 12/24/23 15:00 12/24/23 16:00 Temperature 97.6 F 97.6 F 97.7 F Pulse Rate 73 70 77 Pulse Rate [Pulse Oximeter] Respiratory Rate 16 16 16 Blood Pressure 134/67 132/61 141/72 H Blood Pressure [Ri ght Arm] Pulse Oximetry 93 94 95 Oxygen Delivery Me thod Room Air Room Air Room Air Oxygen Flow Rate 0.5 0 0 12/24/23 17:00 12/24/23 17:00 12/24/23 20:25 Temperature 98.3 F 98.3 F 98.0 F Pulse Rate 79 79 Pulse Rate [Pulse Oximeter] 88 Respiratory Rate 16 16 16 Blood Pressure 141/72 H 126/59 L Blood Pressure [Ri ght Arm] 135/59 L Pulse Oximetry 92 92 92 Oxygen Delivery Me thod Room Air Room Air Room Air Oxygen Flow Rate 0 12/24/23 22:28 12/24/23 22:46 12/25/23 03:23 Temperature 98.1 F 98.9 F Pulse Rate Pulse Rate [Pulse Oximeter] 89 84 Respiratory Rate 16 16 16 Blood Pressure Blood Pressure [Ri ght Arm] 134/61 140/69 H Pulse Oximetry 94 94 Oxygen Delivery Me thod Room Air Room Air Oxygen Flow Rate 0 12/25/23 10:17 Temperature 98.0 F Pulse Rate Pulse Rate [Pulse Oximeter] 72 Respiratory Rate 20 Blood Pressure Blood Pressure [Ri ght Arm] 145/62 H Pulse Oximetry 96 Oxygen Delivery Me thod Room Air Oxygen Flow Rate Labs Labs: Laboratory Results - last 24 hr 12/25/23 05:49 WBC 10.51 RBC 2.96 L Hgb 8.7 L Hct 26.4 L MCV 89 MCH 29 MCHC 33 Plt Count 189 Sodium 137 Potassium 4.7 Chloride 110 Carbon Dioxide 23 Anion Gap 4 L BUN 23 Creatinine 1.2 Estimated Creat Clear 31.96 Estimated GFR 45 Glucose 177 H Calcium 9.4
--- NOTE | 2023-12-25 11:56 | PC.SOCIAL ---
Addendum entered by MARISOL [place] 12/25/23 16:36: Discharge planning: family service worker sent a referral to [facility] for pt this afternoon. Social work to follow-up as needed. Addendum entered by MARISOL [place] 12/25/23 16:14: Discharge planning: family service worker consulted with the provider on duty and PT about pt's decision to not go to a SNF for short-term rehab. Provider on duty stated that the pt's daughters would really like her to go to a SNF for TCU, as there will not be 24 hour care for the pt at home when she is ready for discharge. PT also recommend this and pt does have qualifying need. family service worker left a message with pt's daughter Catarina #[phone] to talk about discharge planning. family service worker also met with pt again in her room and explained the benefits of a SNF TCU and her daughters' feeling that this would be good for her and her recovery. family service worker also explained the recommendation from the doctor and PT again. Pt was agreeable to go to a SNF for short-term rehab and requested [facility] in [place]. family service worker reached out to Akila at [facility] to inquire about TCU openings, but she has not responded back yet. Social work to follow-up as needed. Original Note: Discharge planning: family service worker met with pt today in her room. family service worker explained that she is being recommended to go to a SNF at discharge to continue with PT/OT. Pt would really like to return home. Pt stated that she lives in the lower level of a rambler style house and her daughter and son-in-law live on the upper level. Pt stated that she has about nine steps to go down to get to the basement or back upstairs from the basement. family service worker discussed this case with the provider on duty and the provider will be having further discussions with the family about discharge planning. Pt may be able to go home with home care for PT/OT in place. Social work to follow-up as needed.
[2023-12-25 12:00] VITALS: BP 141/59; PULSE 63; RESP 16; TEMP 36.5; O2SAT 93
[2023-12-25 15:00] VITALS: BP 130/56; PULSE 67; RESP 16; TEMP 36.6; O2SAT 94
--- NOTE | 2023-12-25 15:22 | PC.NURSE ---
End of Shift [id number] ? Pt alert, oriented to self and place. Disoriented to the situation and to the day of the week and date. Up with PT and to bathroom and chair with standby assistance, walker/gait belt. Pt reported little to no pain in surgical hip, but pt did not recall having surgery. Easily redirected and pleasant. Dressing CDI, ice pack on site. Medication given per OCT schedule to manage pt pain. Tolerating RA, regular diet, fluids. New IV site placed, previous IV catheter removed with tip intact. Pt appears to be resting comfortably at end of shift. ?
[2023-12-25 19:00] VITALS: BP 131/73; PULSE 67; RESP 16; TEMP 36.7; O2SAT 94
[2023-12-25] MEDS: METFORMIN 1,000 MG TABLET 1000 MG PO (20:46)
[2023-12-25] MEDS: OXYCODONE 5 MG TABLET PO (21:21)
--- NOTE | 2023-12-25 21:50 | PC.NURSE ---
End of Shift: Patient pleasant and cooperative. Afebrile. Dressing to left hip C/D/I. CMS intact. Up with 1 assist, walker and gait belt. Tolerating regular diet with no nausea. C/o achiness in hip at bedtime 02/27 and PRN Oxycodone given x1.
[2023-12-25 23:00] VITALS: BP 147/70; PULSE 66; RESP 16; TEMP 36.6; O2SAT 93
[2023-12-26 03:00] VITALS: BP 152/68; PULSE 62; RESP 20; TEMP 36.4; O2SAT 96
[2023-12-26 07:03] LABS: Basophils Absolute Auto 0.01 K/uL (0.00-0.30); Basophils Percent Auto 0.2 % (0.0-3.0); Eosinophils Absolute Auto 0.22 K/uL (0.00-0.50); Eosinophils Percent Auto 3.6 % (0.0-7.0); Hematocrit 26.3 % (33.0-51.0); Hemoglobin* 8.6 gm/dL (12.0-16.0); Immature Granulocytes Abs Auto 0.02 K/uL (0.00-0.30); Immature Granulocytes Pct Auto 0.3 %; Lymphocytes Absolute Auto 1.42 K/uL (0.90-2.90); Lymphocytes Percent Auto 23.5 % (20-44); Mean Corpuscular HGB Conc 33 gm/dL (32-36); Mean Corpuscular Hemoglobin 30 pg (26-34); Mean Corpuscular Volume 91 fL (80-100); Monocytes Percent Auto 5.5 % (0.0-11.0); Neutrophils Absolute Auto 4.05 K/uL (1.7-7.0); Neutrophils Percent Auto 66.9 % (42.0-72.0); Platelet Count* 196 K/uL (140-440); RDW Coefficient of Variation % 13.3 % (11.5-15.5); White Blood Count* 6.05 K/uL (4.50-11.00)
[2023-12-26 07:16] LABS: Slide Review Reflex No
[2023-12-26 07:47] LABS: Chloride* 111 mmol/L (96-114)
[2023-12-26 07:48] LABS: Potassium* 4.2 mmol/L (3.6-5.1); Sodium* 138 mmol/L (135-149)
[2023-12-26 07:50] LABS: Creatinine* 1.3 mg/dL (0.5-1.5); Estimated Glomerular Filt Rate 41 ml/min
[2023-12-26 07:51] LABS: Anion Gap 2 mEq/L (7-15); Blood Urea Nitrogen* 28 mg/dL (7-30); Calcium* 9.3 mg/dL (8.4-10.6); Carbon Dioxide* 25 mmol/L (20-32); Glucose* 106 mg/dL (60-115)
[2023-12-26 07:54] VITALS: BP 157/87; PULSE 68; RESP 16; TEMP 36.6; O2SAT 94
[2023-12-26] MEDS: ACETAMINOPHEN 500 MG TABLET 1000 MG PO (08:51)
[2023-12-26] MEDS: glyBURIDE 5 MG TABLET 2.5 MG PO (08:52)
[2023-12-26] MEDS: SERTRALINE 50 MG TABLET PO (08:52)
[2023-12-26] MEDS: GABAPENTIN 100 MG CAPSULE PO (08:52)
[2023-12-26] MEDS: SENNOSIDES 1 TAB TABLET 2 TAB PO (08:52)
[2023-12-26] MEDS: METFORMIN 1,000 MG TABLET 1000 MG PO (08:52)
[2023-12-26] MEDS: LOVASTATIN 20 MG TABLET PO (08:52)
[2023-12-26] MEDS: AMLODIPINE 5 MG TABLET PO (08:52)
[2023-12-26] MEDS: atenoloL 50 MG TABLET PO (08:52)
[2023-12-26] MEDS: RIVAROXABAN 10 MG TABLET 20 MG PO (08:52)
[2023-12-26] MEDS: SODIUM CHLORIDE 0.9 % (FLUSH) 10 ML SYRINGE 5 ML IVF (08:52)
[2023-12-26 11:03] VITALS: BP 106/42; PULSE 63; RESP 16; TEMP 36.7; O2SAT 95
[2023-12-26 12:37] VITALS: BP 126/59; PULSE 79; RESP 16; TEMP 36.7
--- NOTE | 2023-12-26 12:37 | PM.DS1 ---
DS: Providers Provider Date Seen: 12/26/23 Date of admission: 12/23/23 02:47 Primary care physician: Paloma Escobedo DO Admitting Clinician: Jackson Jones MD Consults: SW, PT, OT Attending Physician on discharge: Nohemy Crews MD Date of Discharge: 12/26/23 DS: Diagnosis Discharge Diagnosis (1) Closed subcapital fracture of femur: Status: Acute Problem details: - s/p left femur closed reduction and percutaneous pinning with Dr. 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 - restarted 10mg on POD #1 (12/23), back to home dose of 20mg on 12/25 given stable Hgb and no evidence of acute bleeding (3) Diabetes mellitus: Status: Acute Problem details: - most recent A1c 6.9 - Continued glyburide during stay, restarted Metformin on 12/24 given normal po intake and stable creatinine (4) CKD (chronic kidney disease): Status: Acute Problem details: - Creatinine 1.2-1.3, currently at baseline - Avoid nephrotoxic medications, continue to monitor (5) Hyperlipidemia: Status: Acute Problem details: - continue home dose of statin (6) Hypertension: Status: Acute Problem details: - currently has age-appropriate control of blood pressure with home doses of Amlodipine and Atenolol (7) Acute blood loss anemia: Status: Acute Problem details: - 10.2 --> 8.7 (Hgb baseline 10.5-11) - Recent surgery, anticoagulated - Hgb 8.7 --> 9.0 --> 8.6 without evidence of acute bleeding, asymptomatic DS: Summary Hospital Course Hospital Course: Meli was admitted to the hospital on 12/22 for a L hip fracture after a mechanical fall at home. She underwent left femur closed reduction and percutaneous pinning with Dr. Daigle of Orthopedic Surgery (12/24/23). Postoperatively, she had a drop in her Hgb (10.2 --> 8.7), stable at 8.6 upon discharge with no evidence of acute bleeding, no lightheadedness, no dizziness. Her Xarelto was continued postoperatively given history of DVT and PE. Followed by therapies, SNF stay recommended. She was medically appropriate for discharge to SNF on 12/26/23. Status at Discharge Overall status at discharge: patient is progressing back to baseline Time Spent with Patient Time attestation: Total time spent providing and/or coordinating discharge services: Time spent: Greater than 30 minutes Specific discharge activities: Medication reconciliation, care coordination with multidisciplinary team Exam Narrative: Exam Narrative: GEN: Alert and oriented, sitting comfortably in bedside chair HEENT: EOMIs bilaterally, no scleral icterus CV: RRR, No concerning murmurs R: LCTA bilaterally without concerning wheezing Skin: No concerning skin lesions or rashes on exposed skin Neuro: Nonfocal Psych: Appropriate Const: Vital Signs, click to edit/add: Vital Signs - 24 hr 12/25/23 15:00 12/25/23 15:00 12/25/23 19:00 Temperature 97.9 F 98.1 F Pulse Rate [Pulse Oximeter] 67 67 67 Respiratory Rate 16 16 16 Blood Pressure [Ri ght Arm] 130/56 L 131/73 Pulse Oximetry 94 94 Oxygen Delivery Me thod Room Air Room Air Oxygen Flow Rate 12/25/23 23:00 12/25/23 23:00 12/26/23 03:00 Temperature 98 F 97.6 F Pulse Rate [Pulse Oximeter] 66 66 62 Respiratory Rate 16 16 20 Blood Pressure [Ri ght Arm] 147/70 H 152/68 H Pulse Oximetry 93 96 Oxygen Delivery Me thod Room Air Room Air Oxygen Flow Rate 0 12/26/23 07:54 12/26/23 11:03 Temperature 97.8 F 98.1 F Pulse Rate [Pulse Oximeter] 68 63 Respiratory Rate 16 16 Blood Pressure [Ri ght Arm] 157/87 H 106/42 L Pulse Oximetry 94 95 Oxygen Delivery Me thod Room Air Room Air Oxygen Flow Rate DS: Data Data Completed and Pending Labs on day of discharge: Labs from last 24 hours 12/26/23 12/25/23 06:02 14:15 WBC 6.05 RBC 2.90 L Hgb 8.6 L 9.0 L Hct 26.3 L MCV 91 MCH 30 MCHC 33 RDW Coeff of Giovanni 13.3 Plt Count 196 Neut % (Auto) 66.9 Lymph % (Auto) 23.5 Crenshaw % (Auto) 5.5 Eos % (Auto) 3.6 Baso % (Auto) 0.2 Neut # (Auto) 4.05 Lymph # (Auto) 1.42 Crenshaw # (Auto) 0.30 Eos # (Auto) 0.22 Baso # (Auto) 0.01 Abs Immat Gran (auto) 0.02 Imm/Tot Granulo (auto) 0.3 Sodium 138 Potassium 4.2 Chloride 111 Carbon Dioxide 25 Anion Gap 2 L BUN 28 Creatinine 1.3 Estimated Creat Clear 29.50 Estimated GFR 41 Glucose 106 Calcium 9.3 Discharge Plan Discharge Disposition: Xfer SNF Date of Admission: 12/23/23 02:47 Attending Provider on Discharge: Nohemy Crews Primary Care Provider: Paloma Escobedo Condition: Improved Discharge Medications: New acetaminophen 500 mg Tablet 1,000 mg PO TID Qty: 60 0RF oxycodone 5 mg Tablet 5 mg PO Q4H PRN (Reason: Moderate Pain) Qty: 20 0RF Continued glyburide 2.5 mg tablet 2.5 mg PO DAILY amlodipine 5 mg tablet 5 mg PO DAILY metformin 1,000 mg tablet 1,000 mg PO BID lovastatin 20 mg tablet 20 mg PO DAILY atenolol 50 mg tablet 50 mg PO DAILY sertraline 50 mg tablet 50 mg PO DAILY Xarelto 20 mg tablet 20 mg PO DAILY Discharge Orders: Discharge Order (Routine); Ordered 12/26/23 Ordered By: Nohemy Crews Additional Instructions: See Dr. Escobedo after your rehab stay to check in. Activity Level: Weight Bearing as Tolerated Activity Restrictions: Orthopedic PA appointment in [address] Daigle in 6 weeks Discharge Diet: Regular Follow Up Appointments: Trip Daigle MD [Staff Physician] - () Paloma Escobedo DO [Primary Care Provider] - [facility] Inst[facility] Admit to: SNF Discharge Potential: Good Length of Stay: <30 days Can use facility standing orders?: Yes Code Status: DNR/DNI TEDs: N/A Rehab Potential: Good Therapy: Physical Therapy and Occupational Therapy Therapy Orders: Evaluate and Treat Oxygen: No Urinary Catheter: No Glucose Checks: once/day (on Metformin only) Lab Orders: CBC on , 12/27 Orders are good >30 days: Yes Signature: Nohemy Crews MD
--- NOTE | 2023-12-26 13:33 | PC.NURSE ---
Pt alert and oriented. Pt assist of one with gait belt and walker. Pt had no complaints of pain. Dressing dry and intact. Pt?s IV removed; catheter intact. Nurse to Nurse done with Dannielle?sonu. Pt?s granddaughter transported Pt to SNF.? ?
--- NOTE | 2023-12-26 14:09 | PC.SOCIAL ---
Discharge planning: Pt was accepted at [facility] in [place] today for short-term rehab. raw cheese worker notified pt's daughter, Catarina, and pt, as well. Pt and family will accept and pt's granddaughter will transport her today to [facility] by 2pm per the request of [facility]. raw cheese worker secure emailed pt's discharge orders to Akila at [facility]. Pre-admission screening was completed, [id number], and sent to Akila at [facility]. Social work to follow-up as needed.
== END 2023-12-26 13:19 | DRG 481 ==
LOC: ED 12-23 00:19 → MEDSURG 12-23 01:08
PROVIDERS: Family Medicine; Orthopaedic Surgery Sports Medicine; Physician Assistant; Admitting Provider Student in an Organized Health Care Education/Training Program; Emergency Provider Family Medicine; PCP Family Medicine; Visit Provider Student in an Organized Health Care Education/Training Program
PROC: 0QS734Z Reposition Left Upper Femur with Internal Fixation Device, Percutaneous Approach (ICD-10-PCS; principal; 2023-12-24 09:00)
DX: S72.012A Unspecified intracapsular fracture of left femur, initial encounter for closed fracture (principal); D62 Acute posthemorrhagic anemia; G89.18 Other acute postprocedural pain; W01.0XXA Fall on same level from slipping, tripping and stumbling without subsequent striking against object, initial encounter; Y93.89 Activity, other specified; M25.512 Pain in left shoulder; Z79.01 Long term (current) use of anticoagulants; Z86.711 Personal history of pulmonary embolism; E11.22 Type 2 diabetes mellitus with diabetic chronic kidney disease; I12.9 Hypertensive chronic kidney disease with stage 1 through stage 4 chronic kidney disease, or unspecified chronic kidney disease; N18.30 Chronic kidney disease, stage 3 unspecified; Z79.84 Long term (current) use of oral hypoglycemic drugs; E78.5 Hyperlipidemia, unspecified
CPT/HCPCS: 01230; 36415; 64450; 71045; 73030; 73501; 73502; 73700; 76942; 80048; 80053; 82962; 83605; 85018; 85025; 85027; 94761; 97110; 97116; 97161; 97166; 97530; 97535; 99100; 99140; 99285; A9270; C1713; J0665; J0690; J1100; J2250; J2270; J2405; J2704; J3490; J7030; J7120

== ENCOUNTER 2025-01-15 17:32 | Emergency (ER) | payer MEDICARE, OTHER, SELFPAY ==
[2025-01-15] VITALS (23 sets, daily range): BP systolic 140–184; BP diastolic 62–81; PULSE 62–73; RESP 10–26; TEMP 36.6; O2SAT 93–100
--- OUTSIDE RECORDS SUMMARY | 2025-01-15 17:34 | XMS_ITS | Clinical Summary ---
Author Organization [facility] Address [address] [place] [id number] Care Team Providers Care Supplier Diversity Director Name Role Phone Paloma Escobedo DO Primary Care Provider Allergies Active Allergy Reactions Criticality Noted Date Comments Amoxicillin Rash 06/24/2009 Lisinopril Renal Failure 06/30/2014 Medications Calcium-Cholecalc iferol, D3, (CALCIUM 500+D) 500 mg(1,250mg) -400 unit Chew 1 by mouth twice daily 180 0 07/27/20 09 Active MEDICAL SUPPLY, MISCELLANEOUS (GRADUATED COMPRESSION STOCKINGS)Indicat ions:Varicose veins of legs For personal use. Length: calf Strength: 16-20 mmHg 2 Packet 2 02/25/20 17 Active blood sugar diagnostic (Ascensia CONTOUR) stripIndications: Diabetes mellitus without complication (HC) USE 1 STRIP TO CHECK GLUCOSE ONCE DAILY 100 Each 3 09/27/19 23 Active artificial tears, peg 400 0.4%-propylene glycol 0.3%, (SYSTANE) ophthalmic Place 1-2 Drops into both eyes 2 times daily if needed for Dry Eyes. Active nystatin (MYCOSTATIN) topical creamIndications: Yeast dermatitis Apply topically to affected area(s) 2 times daily if needed (Skin rash/irritatio n). 30 g 2 07/31/20 23 Active Blood Pressure Monitor KitIndications:HT N (hypertension) Frequency of testing: once weekly 1 Each 07/31/20 23 Active oxymetazoline (Afrin, oxymetazoline,) 0.05 % nasal sprayIndications: Bleeding from the nose Use 2 sprays in left nostril with nosebleeds 22 mL 12/08/19 24 Active metFORMIN (GLUCOPHAGE) 1,000 mg tabletIndications :Diabetes mellitus without complication (HC) Take 1 Tablet (1,000 mg) by mouth two times daily with meals. 180 Tablet 2 07/06/20 24 Active desonide 0.05 % lotionIndications :Skin-picking disorder Apply topically to affected area(s) two times daily. 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 90 Tablet 2 12/04/19 25 Active OLANzapine (ZyPREXA) 2.5 mg tabletIndications :Skin-picking disorder Take 1 Tablet (2.5 mg) by mouth at bedtime. 60 Tablet 12/31/19 25 Active atenoloL 50 mg tabletIndications :Essential hypertension Take 1 Tablet (50 mg) by mouth once daily. 90 Tablet 2 12/31/19 25 Active amLODIPine 5 mg tabletIndications :Essential hypertension Take 1 Tablet (5 mg) by mouth once daily. 90 Tablet 3 12/31/19 25 Active donepeziL 10 mg tabletIndications :Moderate cognitive impairment Take 1 Tablet (10 mg) by mouth at bedtime. 90 Tablet 3 12/31/19 25 Active sertraline 50 mg tabletIndications :Current mild episode of major depressive disorder without prior episode Take 1 Tablet (50 mg) by mouth once daily in the morning. 90 Tablet 3 12/31/19 25 Active metFORMIN 500 mg tabletIndications :Diabetes mellitus without complication (HC) Take 1 Tablet (500 mg) by mouth two times daily with meals. 180 Tablet 1 12/31/19 25 Active amLODIPine (NORVASC) 5 mg tabletIndications :Essential hypertension Take 1 Tablet (5 mg) by mouth once daily. 90 Tablet 3 05/31/20 24 025 Discontin ued(Reord er (E-cancel not sent)) donepeziL (ARICEPT) 10 mg tabletIndications :Moderate cognitive impairment Take 1 Tablet (10 mg) by mouth at bedtime. 90 Tablet 3 05/31/20 24 025 Discontin ued(Reord er (E-cancel not sent)) sertraline (ZOLOFT) 50 mg tabletIndications :Current mild episode of major depressive disorder without prior episode Take 1 Tablet (50 mg) by mouth once daily in the morning. 90 Tablet 3 05/31/20 24 025 Discontin ued(Reord er (E-cancel not sent)) atenoloL (TENORMIN) 50 mg tabletIndications :Essential hypertension Take 1 Tablet (50 mg) by mouth once daily. 90 Tablet 2 07/06/20 24 025 Discontin ued(Reord er (E-cancel not sent)) OLANzapine (ZyPREXA) 5 mg tabletIndications :Skin-picking disorder Take 1 Tablet (5 mg) by mouth at bedtime. fill if 2.5mg not effective. thanks 60 Tablet 09/30/19 25 025 Discontin ued(*Medi cation adjustmen t) OLANzapine (ZyPREXA) 2.5 mg tabletIndications :Skin-picking disorder Take 1 Tablet (2.5 mg) by mouth at bedtime. 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 historical at this time. NSTEMI (non-ST elevated myocardial infarction) 1 09/05/2022 Mild nonproliferative diabet ic retinopathy of both eyes without macular edema associated with type 2 diabetes mellitus 11/06/2021 Assessment & Plan (09/09/2023 9:14 AM QUILL REAMER): chart up date only today. Assessment & Plan (10/28/2022 9:39 AM QUILL REAMER): chart update only. Paloma Escobedo D.O. 10/28/2022 9:39 AM Type II or unspecified type diabetes mellitus without mention of complication, not stated as uncontrolled 07/20/2018 CKD (chronic kidney disease) stage 3, GFR 30-59 ml/min 02/16/2017 Assessment & Plan (09/09/2023 9:14 AM QUILL REAMER): chart update only. Paloma Farnswortht D.O. 09/09/2023 9:14 AM Assessment & Plan (10/28/2022 9:39 AM QUILL REAMER): chart update only.Paloma Farnswortht D.O. 10/28/2022 9:38 AM Neuropathy 10/10/2014 CRI (chronic renal insufficiency) 05/16/2014 Overview (05/16/2014): Better off lisinopril. Needs recheck labs 06/2014. Milly Salinas MD .................... 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 Hyperlipidemia LDL goal < 100 04/08/2010 HTN (hypertension) 07/11/2008 Overview (11/03/2009): Updated by system to replace inactive record Hernia of unspecified site o f abdominal cavity without mention of obstruction or gangrene Resolved Problems Problem Noted Date Diagnosed Date Resolved Date Diabetic retinopathy 08/22/2012 019 Type II or unspecified type diabetes mellitus without mention of complication, not stated as uncontrolled 11/14/2018 Encounters Date Type Department Care Team Description 01/15/2025 Nurse Triage [facility] [address] [place] [address] Paloma Escobedo, DO Head Laceration 01/14/2025 Telephone [facility] [address] [place] [address] Paloma Escobedo DO Medication Management (OLANzapine (ZyPREXA) 2.5 mg tablet) 01/07/2025 Telephone [facility] [address] [place] [address] Paloma Escobedo DO Medication Management (OLANzapine (ZyPREXA) 2.5 mg tablet/) 12/27/2024 11:05 AM CDT Office Visit [facility] [address] [place] [address] Paloma Escobedo DO Lab; Diabetes; Derm Problem (skin picking) 12/27/2024 Telephone [facility] [address] [place] [address] Paloma Escobedo DO Error-please disregard 12/27/2024 Travel 12/02/2024 Telephone [facility] [address] [place] [address] Paloma Escobedo DO Refill Request 11/27/2024 Telephone [facility] [address] [place] [address] Paloma Escobedo DO Appointment 11/24/2024 Travel 11/08/2024 Refill [facility] [address] [place] [address] Paloma Escobedo DO Refill Request (Lovastatin) 10/21/2024 Orders Only [facility] Scanner 1 scan: (1-Ord) [facility], 10/21/2024 from Last 3 Months Immunizations Immunization Administration Dates Next Due COVID-19 vaccine (Customer[employer] 30mcg/0.3mL) PF, MDV 11/07/2020,10/17/2020 Influenza A (H1N1), Inactivated 09/02/2009 Influenza, High-dose Inactivated 05/16/2016,11/0 01/2015,06/21/2014 Influenza, IIV3 (Age >=3 years) 05/12/20 13,05/18/2012,05/24/2010,2008,06/23/2008,06/06/2007 Influenza, Inactivated AIIV4 (Age 65+ Years) Preserv Free 05/01/2023,04/27/2022,06/29/2020 Influenza, Inactivated IIV3 (Age 65+ Years) Preserv Free 05/28/2024,05/17/2019,07/20/2018,2016 Pneumococcal Poly,23-Valent (Pneumovax) 04/19/2006 Pneumococcal conj 13-Valent (Prevnar 13) 08/24/2016 Td (Age >=7 Years) 10/15/2002 Tdap 06/26/2015 Family History Medical History Relation Name Comments Other Brother 2 brain tumor Diabetes Daughter Diabetes Mother Other Sister 2 cystic fibrosis Cancer-breast No Family History Relation Name Status Comments Brother 1 Brother 2 Daughter Father Mother Sister 1 Sister 2 Social History Tobacco Use Types Packs/Day Years Used Date Smoking Tobacco: Former Cigarettes Q uit: 08/21/1964 Smokeless Tobacco: Never Tobacco Cessation:Counseling Given: Yes Alcohol Use Standard Drinks/Week Comments No 0 (1 standard drink = 0.6 oz pur e alcohol) PHQ-2 Answer Date Recorded PHQ-2 TOTAL SCORE 2 05/31/2024 Social Connections Answer Date Recorded Do you often feel lonely or isolated from those around you? 0 07/19/2024 Financial Resource Strain Answer Date R ecorded Difficulty of Paying Living Expenses 3 07/19/2024 Difficulty of Paying Living Expenses Not on file 07/19/2024 Food Insecurity Answer Date Recorded Do you worry your food will run out before you are able to buy more? 1 07/19/2024 Transportation Needs Answer Date Record ed Does lack of transportation keep you from medica l appointments? 1 07/19/2024 Does lack of transportation keep you from work, meetings or getting things that you need? 1 07/19/2024 Housing Stability Answer Date Recorded What is your housing situation today? 1 07/19/2024 Interpersonal Safety Answer Date Record ed Are you being hit, kicked, p ushed or yelled at (see row info)? No 02/22/2024 Interpersonal Safety Abuse 12 - 18 Not on file 02/22/2024 Interpersonal Safety Ambulatory Vulnerability No t on file 02/22/2024 Utilities Answer Date Recorded Do you have trouble paying f or utilities (for example, heat, electricity, water, phone)? 1 07/19/2024 Comments No Sex and Gender Information Value Date Recorded Sex Assigned at Not on file Legal Sex Female 5:23 AM QUILL REAMER Gender Identity Not on file Sexual Orientation Not on file Occupation Industry Job Start Date Job End Date [employer] (retired) Not on file Not on file Not on file Obstetrics History Para Term AB IAB SAB Ectopic Multiple Livin g Live Births 4 4 4 4 Date Outcome GA Total Labor Labor/2nd/3rd Weight Sex Type Anes PTL Vicky A1 A5 Name Clin Term Term Term Term Last Filed Vital Signs Vital Sign Reading Time Taken Comments Blood Pressure 138/66 12/27/2024 11:12 AM CDT Pulse 55 12/27/2024 11:12 AM CDT Temperature 36.6 C (97.8 F) 05/31/2024 11:19 AM CDT Respiratory Rate 16 02/22/2024 11:14 PM CDT Oxygen Saturation 97% 12/27/2024 11:12 AM CDT Inhaled Oxygen Concentration - - Weight 76.7 kg (169 lb) 12/27/2024 11:12 AM CDT Height 165.1 cm (5' 5) 05/31/2024 11:19 AM CDT Body Mass Index 28.12 05/31/2024 11:19 AM CDT Plan of Treatment Upcoming Encounters Date Type Department Care Team (Late st Contact Info) Description 07/04/2025 11:05 AM QUILL REAMER Office Visit [facility] [address] [place] [address] Paloma Escobedo DO [address] [place] [address] Health Maintenance Due Date Last Done Comments Zoster (shingles) series for age 50+ (1 of 2) 1990 RSV vaccine for adults or (1 - 1-dose 75+ series) 2015 COVID-19 vaccine series ( season) 2024 11/07/2020, 10/17/2020 BMI (ht and wt on same day) for age 18+ 05/31/2025 05/31/2024, 05/01/2023, 07/19/2021, Additional history exists Depression screening for age 12+ 05/31/2025 05/31/2024, 05/31/2024, 10/18/2023, Additional history exists Medicare Wellness for age 65+ 06/01/2025 05/31/2024, 05/01/2023, 07/19/2021, Additional history exists Tetanus booster 06/26/2025 06/26/2015, 07/21, 10/15/2002 Tdap Completed 06/26/2015 Pneumococcal series for age 50+ Completed 08/24/2016, 04/19/2006 DEXA/DXA scan for age 65+ Completed 11/15/2018, 08/2008 Influenza Vaccine Completed 05/28/2024, , 04/27/2022, Additional history exists Hepatitis B series for 19+ Aged Out N o longer eligible based on patient's age to complete this topic Goals Goal Patient Goal Type Associated Problems Recent Progress Patient-Stated? Author BLOOD PRESSURE - MAINTAINS BP less than 140/90 Blood Pressure Laurita Stover MD Procedures Procedure Name Priority Date/Time Associated Diagnosis Comments LIPID PANEL W REFLEX MEASURED LDL Routine 12/27/2024 10:57 AM CDT Hyperlipidemia with target LDL less than 100 HEMOGLOBIN A1C MONITORING (POCT) Routine 12/27/2024 10:56 AM CDT Diabetes mellitus without complication (HC) SCAN-EYE EXAM 10/21/2024 12:00 AM QUILL REAMER XR DXA BONE DENSITY 2 SITES AXIAL Routine 11/15/2018 11:36 AM CDT Post-menopausal from Last 3 Months or Most Recently Relevant to Health Maintenance Results * (ABNORMAL) LIPID PANEL W REFLEX MEASURED LDL (12/27/2024 10:57 AM CDT) CHOLESTEROL, TOTAL 196 <200 mg/dL [facility] HDL CHOLESTEROL 50 > OR = 50 mg/dL [facility] TRIGLYCERIDES 141 <150 mg/dL [facility] LDL-CHOLESTEROL 121(H) mg/dL (calc) [facility] Comment: Reference range: <100 Desirable range <100 mg/dL for primary prevention; <70 mg/dL for patients with CHD or diabetic patients with > or = 2 CHD risk factors. LDL-C is now calculated using the Eliecer calculation, which is a validated novel method providing better accuracy than the Friedewald equation in the estimation of LDL-C. Donovan LOPES et al. STEEVN. 2013;310(19): 6876-7500 (http://education.[employer]/faq/HTQ330) CHOL/HDLC RATIO 3.9 <5.0 (calc) [facility] NON HDL CHOLESTEROL 146(H) <130 mg/dL (calc) [facility] Comment: For patients with diabetes plus 1 major ASCVD risk factor, treating to a non-HDL-C goal of <100 mg/dL (LDL-C of <70 mg/dL) is considered a therapeutic option. Blood BLOOD SPECIMEN / Unknown 12/27/2024 10:57 AM CDT 12/27/2024 10:59 AM CDT us Paloma Escobedo DO CHEMISTRY Final Resul t [employer] [address] [address], [employer] [address] * (ABNORMAL) POCT Hemoglobin A1C Monitoring (12/27/2024 10:56 AM CDT) POC HEMOGLOBIN A1C 6.5(H) <6.0 % OF TOTAL HGB [facility] Comment: Any point of care results exhibiting inconsistency with the patient's clinical status should be repeated using a different testing method. Blood BLOOD SPECIMEN / Unknown 12/27/2024 10:56 AM CDT 12/27/2024 10:57 AM CDT us Paloma Farnswortht DO CHEMISTRY Final Resul t [facility] [address] [place] [address], [facility] [address] [place] [address] * SCAN-EYE EXAM (10/21/2024 12:00 AM QUILL REAMER) us Scanner OTHER Final Result * (ABNORMAL) XR DXA BONE DENSITY 2 SITES AXIAL (11/15/2018 11:36 AM CDT) Anatomical Region Laterality Modality Spine, HIPS, HIPL, HIPR Other Narrative 12/05/2018 10:55 AM CDT Please see scanned document for results of this study. Paloma Escobedo DO DEXA Final Resul t from Last 3 Months or Most Recently Relevant to Health Maintenance Insurance Pharmly PB ONLY MEDICARE PART B HB ONLY MEDICARE PART A HB ONLY MEDICA PRIME SOLUTION HB MEDICARE PART B HB ONLY MEDICA PRIME SOLUTIONS Member Subscriber Plan / Payer ( fective 2014-Present) Name:Meli Whalen Relation to Subscriber:Self Name:Meli Whalen Payer ID:[id number] (NAIC) Type:Not on file Address: [place] [phone] Advance Directives Documents on File Type Date Recorded Patient Accounting Assistant Expl anation POLST 04/26/2024 Healthcare Directive 04/02/2024 1:46 PM si gned 03/31/24 * Full Code (Latest Code Status on File) Date Activated Date Inactivated Comments 07/06/2023 9:38 PM 07/09/2023 9:16 PM Question Answer Comments Code Status Discussion: Other Care Teams Supplier Diversity Director Relationship Specialty Start Date End Date Paloma Escobedo DO [address] [place] [address] PCP - General Family Practice 04/20/15
--- NOTE | 2025-01-15 18:01 | CRLHL7_ITS ---
For Patients: As a result of the Century Cures Act, medical imaging exams and procedure reports are released immediately into your electronic medical record. You may view this report before your referring provider. If you have questions, please contact your health care provider. INDICATION: Fall. COMPARISON: None. TECHNIQUE: Noncontrast CT cervical spine. FINDINGS: Normal vertebral body and facet alignment. No acute fractures of the cervical spine. There is mild loss of height and anterior wedging of T1 vertebral body with cortical irregularity along the inferior endplate. Finds may represent 80 recent, acute subacute compression fracture. No retropulsion of fracture fragments. No fractures of the visualized upper ribs. No prevertebral soft tissue swelling. Cervical spondylosis with multilevel disc degeneration facet arthropathy. C1-2: No spinal canal narrowing. C2-3: No spinal canal neural foraminal narrowing. C3-4: Posterior disc bulge. Mild narrowing of spinal canal. No neural foraminal narrowing. C4-5: Disc degeneration. Posterior disc bulging disc osteophyte complex. No spinal canal neural foraminal narrowing. C5-6: Disc generation broad-based disc osteophyte complex. Mild narrowing of spinal canal. Mild narrowing of bilateral foramina. C6-7: Disc generation broad-based disc osteophyte complex. Mild narrowing of spinal canal. Mild right and moderate left neural foraminal narrowing. C7-T1: No spinal canal neural foraminal narrowing. Lung apices are clear. IMPRESSION: 1. Mild loss of height and anterior wedging of T1 representing a recent, acute to subacute compression fracture. 2. No other fractures 3. Cervical spondylosis. 4. Mild narrowing of the spinal canal and neural foramina at C5-6 5. At C6-7, mild right and moderate left neural foraminal narrowing. Please note that all CT scans at this facility use dose modulation, iterative reconstruction, and/or weight-based dosing when appropriate to reduce radiation dose to as low as reasonably achievable. Dictated by Azar Meehan MD @ 01/15/2025 6:43:20 PM (Electronically Signed)
--- NOTE | 2025-01-15 18:01 | CRLHL7_ITS ---
For Patients: As a result of the Century Cures Act, medical imaging exams and procedure reports are released immediately into your electronic medical record. You may view this report before your referring provider. If you have questions, please contact your health care provider. INDICATION: Fall. COMPARISON: None. TECHNIQUE: Noncontrast CT head. FINDINGS: Moderate generalized volume loss. There is focal scalp swelling and hematoma of the right posterior parietal calvarium. No underlying fracture. There is a small hyperdense collection adjacent to the left aspect of the anterior inferior falx measures approximately 6 mm in maximal diameter (series 2, image 23) which may represent a small subdural hematoma. No hemorrhage elsewhere. No acute infarct. Patchy low-attenuation change within the white matter consistent with chronic deep white matter small ischemic changes. Symmetric calcifications of the bilateral basal ganglia. Normal calvarium and skull base. Visualized paranasal sinuses and mastoid air cells are clear. Normal orbits bilaterally. IMPRESSION: 1. Small hyperdense collection adjacent the left aspect of the anterior falx may represent a small subdural hematoma. This is countercoup to do scalp swelling and hematoma of the right posterior parietal calvarium. 2. Moderate generalized cerebral volume loss. Please note that all CT scans at this facility use dose modulation, iterative reconstruction, and/or weight-based dosing when appropriate to reduce radiation dose to as low as reasonably achievable. Dictated by Azar Meehan MD @ 01/15/2025 6:39:59 PM (Electronically Signed)
--- NOTE | 2025-01-15 18:02 | ED.GENADULT ---
HPI - General Adult General Chief complaint: Head Injury/Pain Stated complaint: fall Time Seen by Provider: 01/15/25 17:37 History of Present Illness HPI narrative: Patient is a 4-year-old female with apparently mild dementia who presents with family that she lives with she does appear to be on Xarelto she is also diabetic she had a pulmonary embolus in the past by family's history. Patient apparently fell sometime in the night has a small laceration on the back of the head about 2 cm slightly gaping but not bleeding anymore and pretty much adhered side to side. She has no complaint head or neck pain family brought her for assessment. She denies any hip pain, she has been ambulatory she denies any back pain pelvic pain upper lower extremity pain to me. Denies any neck pain or headache. Staff is checking on her last tetanus shot. Related Data Home Medications ?Medication ?Instructions ?Recorded ?Confirmed amlodipine 5 mg tablet 5 mg PO DAILY 07/24/23 01/15/25 atenolol 50 mg tablet 50 mg PO DAILY 07/24/23 01/15/25 glyburide 2.5 mg tablet 2.5 mg PO DAILY 07/24/23 01/15/25 lovastatin 20 mg tablet 20 mg PO DAILY 07/24/23 01/15/25 metformin 1,000 mg tablet 1,000 mg PO BID 07/24/23 01/15/25 rivaroxaban 20 mg tablet (Xarelto) 20 mg PO DAILY 12/23/23 01/15/25 sertraline 50 mg tablet 50 mg PO DAILY 12/23/23 01/15/25 Previous Rx's ?Medication ?Instructions ?Recorded acetaminophen 500 mg tablet 1,000 mg (2 x 500 mg) PO TID #60 12/26/23 tabs Allergies Allergy/AdvReac Type Severity Reaction Status Date / Time amoxicillin Allergy Mild Rash Verified 01/15/25 17:46 lisinopril Allergy Mild kidney Verified 01/15/25 17:46 problems Review of Systems Status of ROS: Reports: 6 or more systems reviewed and unremarkable except as noted in History and below [facility] Medical History History of pulmonary embolism ?Z86.711 - Personal history of pulmonary embolism (ICD-10) Chronic anticoagulation ?Z79.01 - terminal press operator (current) use of anticoagulants (ICD-10) CKD (chronic kidney disease) ?N18.9 - Chronic kidney disease, unspecified (ICD-10) Diabetes mellitus ?E11.9 - Type 2 diabetes mellitus without complications (ICD-10) Hyperlipidemia ?E78.5 - Hyperlipidemia, unspecified (ICD-10) NSTEMI (non-ST elevated myocardial infarction) ?I21.4 - Non-ST elevation (NSTEMI) myocardial infarction (ICD-10) Hypertension ?I10 - Essential (primary) hypertension (ICD-10) Surgical History History of hip surgery (08/24/10) ?Z98.890 - Other specified postprocedural states (ICD-10) History of breast biopsy (10/07/10) ?Z98.890 - Other specified postprocedural states (ICD-10) History of arthroscopy of left knee (07/02/15) ?Z98.890 - Other specified postprocedural states (ICD-10) H/O reduction of closed fracture (12/24/23) ?Z87.81 - Personal history of (healed) traumatic fracture (ICD-10) Social History What is your current living situation?: I presently have a place to live Problems where you live: no known problems Problems where you live details: no known problems In the past 12 months, utilities in danger of being shut off: no In past 12 months, lack of transportation kept you from medical appts, meetings, work, or getting things needed for daily living: no In the past 12 mos, have been you worried that your food would run out before you had money to buy more?: never true In the past 12 mos, the food you bought just didn't last and you didn't have money to buy more?: never true Highest level of school completed/degree received: 12th grade, no diploma Smoking Status: Never smoker Second hand tobacco smoke exposure: No How often do you have a drink containing alcohol: never AUDIT-C Alcohol total score: 0 Non-prescribed substance use: denies use Caffeine: Yes (Coffee) How often does anyone, including family, friends and others, physically hurt you: never How often does anyone, including family, friends and others, insult or talk down to you: never How often does anyone, including family, friends and others, threaten you with harm: never How often does anyone, including family, friends and others, scream or curse at you: never Exam Narrative: Exam Narrative: Objective: Patient's vital signs show elevated blood pressure but otherwise unremarkable Alert and oriented to person she is very cooperative very interactive she is smiling. No palpable head trauma she has thus vertical laceration to the occiput in the middle the back of her head that is about 2 cm long minimally gaping it was sterilely cleansed with Shur-Clens and then closed with Dermabond. Pretty reasonable skin is approximation and no further bleeding. Patient tolerated this well Neck supple nontender Chest back abdomen upper lower extremities unremarkable palpation. Patient moves all extremities without difficulty. Const: Vital Signs, click to edit/add: Vital Signs - 24 hr 01/15/25 17:39 Temperature 97.9 F Pulse Rate [Pulse Oximeter] 62 Respiratory Rate 20 Blood Pressure [Ri ght Upper Arm] 184/74 H Pulse Oximetry 100 Oxygen Delivery Me thod Room Air Course Vital Signs Vital signs: Initial Vital Signs Temperature 97.9 F 01/15/25 17:39 Temperature Source Temporal Artery Scan 01/15/25 17:39 Pulse Rate 62 01/15/25 17:39 Respiratory Rate 20 01/15/25 17:39 Blood Pressure 184/74 H 01/15/25 17:39 Blood Pressure Mean 110 H 01/15/25 17:39 Pulse Oximetry 100 01/15/25 17:39 Oxygen Delivery Method Room Air 01/15/25 17:39 Vital Signs Temperature 97.9 F 01/15/25 17:39 Pulse Rate 62 01/15/25 17:39 Respiratory Rate 20 01/15/25 17:39 Blood Pressure 184/74 H 01/15/25 17:39 Pulse Oximetry 100 01/15/25 17:39 Oxygen Delivery Method Room Air 01/15/25 17:39 Temperature 97.9 F 01/15/25 17:39 Pulse Rate 62 01/15/25 17:39 Respiratory Rate 20 01/15/25 17:39 Blood Pressure 184/74 H 01/15/25 17:39 Pulse Oximetry 100 01/15/25 17:39 Oxygen Delivery Method Room Air 01/15/25 17:39 Medications Administered Medications: Discontinued Medications Generic Name Dose Route Start Last Admin Trade Name Aguilar PRN Reason Stop Dose Admin Sodium Chloride 500 mls @ 500 mls/hr 01/15/25 19:05 01/15/25 19:25 0.9 % Sodium Chloride 500 Ml IV 01/15/25 20:04 500 mls/hr .Q1H ONE Administration Morphine Sulfate 2 mg 01/15/25 19:04 01/15/25 19:35 Morphine 4 Mg/Ml Inj IVP 01/15/25 19:05 2 mg ONCE ONE Administration Medical Decision Making MDM Narrative Medical decision making narrative: 84-year-old white female who lives with family fell in the night. Has a laceration back of her scalp. Does not appear to have any serious sequelae from the fall. I think for completeness though would check a CT of her head neck. If these are negative think she go home rest light activity observation Tylenol as needed. Ice to affected areas. The only thing I would do is keep the scalp laceration dry for 2-3 days Addendum 6:47 p.m.: The patient has evidence of subdural hematoma near the anterior falx. She also has recent acute to subacute compression fracture anterior wedging of T1. I think given these findings I will consult with [facility] regarding treatment recommendations. She was discharged on Eliquis as well. May need to be observed in a trauma center. Addendum 7:00 p.m.: Discussed with Dr. Armenta at [facility] kindly accepts in transfer given the patient's subdural hematoma. Did not have additional recommendations. She will be put on a monitor oximeter and an IV was started. Family will be informed. Discharge Plan Discharge Clinical Impression: Laceration of scalp, Fall, Acute subdural hematoma Patient Disposition: Xfer Other Prescriptions: No Action glyburide 2.5 mg tablet 2.5 mg PO DAILY amlodipine 5 mg tablet 5 mg PO DAILY metformin 1,000 mg tablet 1,000 mg PO BID lovastatin 20 mg tablet 20 mg PO DAILY atenolol 50 mg tablet 50 mg PO DAILY sertraline 50 mg tablet 50 mg PO DAILY Xarelto 20 mg tablet 20 mg PO DAILY acetaminophen 500 mg Tablet 1,000 mg PO TID Qty: 60 0RF Stand Alone Forms: [employer] Info Instructions
[2025-01-15] MEDS: 0.9 % SODIUM CHLORIDE 500 ML 500 ML IV (19:25)
[2025-01-15] MEDS: MORPHINE 4 MG/ML INJ 2 MG IVP (19:35)
== END 2025-01-15 22:10 | disposition other institution (70) ==
PROVIDERS: Emergency Provider Family Medicine; PCP Family Medicine
DX: S06.5X0A Traumatic subdural hemorrhage without loss of consciousness, initial encounter (principal); S01.01XA Laceration without foreign body of scalp, initial encounter; E11.9 Type 2 diabetes mellitus without complications; W19.XXXA Unspecified fall, initial encounter; Z79.84 Long term (current) use of oral hypoglycemic drugs
CPT/HCPCS: 12001; 70450; 72125; 94761; 96361; 96374; 99284; 99285; J2270; J7030

== ENCOUNTER 2025-01-15 22:05 | Outpatient (CLI) | payer MEDICARE, OTHER, SELFPAY | END 2025-01-15 22:06 | disposition home or self-care (01) | PROVIDERS: PCP Family Medicine; Visit Provider Family Medicine | DX: S06.5XAA Traumatic subdural hemorrhage with loss of consciousness status unknown, initial encounter (principal) | CPT/HCPCS: A0425; A0427 ==

== ENCOUNTER 2025-04-27 18:40 | Inpatient (IN) | payer MEDICARE, OTHER, SELFPAY ==
[2025-04-27] VITALS (8 sets, daily range): BP systolic 131–153; BP diastolic 54–74; PULSE 61–67; RESP 14–20; TEMP 36.9; O2SAT 93–98; BMI 29.5
--- OUTSIDE RECORDS SUMMARY | 2025-04-27 18:43 | XMS_ITS | Clinical Summary ---
Author Organization [employer] [facility] Address [facility] [place] [address] Care Team Providers Care Motorboat Operator Name Role Phone JavadtPaloma Primary Care Provider [facility] [place] Unavailable Allergies Active Allergy Reactions Criticality Noted Date [...] BEDTIME 90 Tablet 2 11/11/19 25 Active atenoloL 50 mg tabletIndications :Essential [...] meals. 180 Tablet 1 12/31/19 25 Active glyBURIDE 2.5 mg tablet Take 2.5 mg by mouth. 07/24/20 23 Active glipiZIDE (GLUCOTROL) 5 mg tabletIndications :Diabetes mellitus without complication (HC) Take 1 Tablet (5 mg) by mouth once daily before a meal. 90 Tablet 1 03/02/20 25 Active OLANzapine (ZYPREXA) 2.5 mg tabletIndications :Skin-picking disorder TAKE 1 TO 2 TABLETS(2.5 TO 5 MG) BY MOUTH AT BEDTIME 90 Tablet 03/19/20 25 Active cephalexin 500 mg capsuleIndication s:UTI symptoms,Complica jeancarlos UTI (urinary tract infection) Take 1 Capsule (500 mg) by mouth two times daily for 7 days. 14 Capsule 04/22/20 25 025 Discontinu ed(*Medica tion adjustment ) fosfomycin tromethamine (MONUROL) 3 gram pack packetIndications :Complicated UTI (urinary tract infection),UTI symptoms Mix 1 Packet (3 g) in liquid then take by mouth one time for 1 dose. 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 historical at this time. NSTEMI (non-ST elevated myocardial infarction) 1 09/05/2022 Dementia in Alzheimer's disease 04/02/2023 Mild nonproliferative diabet ic retinopathy of both eyes without macular edema associated with type 2 diabetes mellitus 11/06/2021 Assessment & Plan (09/09/2023 9:14 AM CHILDREN'S LIBRARIAN): chart up date only today. Assessment & Plan (10/28/2022 9:39 AM CHILDREN'S LIBRARIAN): chart update only. Paloma Escobedo D.O. 10/28/2022 9:39 AM Type II or unspecified type diabetes mellitus without mention of complication, not stated as uncontrolled 07/20/2018 CKD (chronic kidney disease) stage 3, GFR 30-59 ml/min 02/16/2017 Assessment & Plan (09/09/2023 9:14 AM CHILDREN'S LIBRARIAN): chart update only. Paloma Escobedo D.O. 09/09/2023 9:14 AM Assessment & Plan (10/28/2022 9:39 AM CHILDREN'S LIBRARIAN): chart update only.Paloma LoweryOAndi 10/28/2022 9:38 AM Neuropathy 10/10/2014 CRI (chronic [...] Encounters Date Type Department Care Team Description 04/25/2025 8:45 AM CDT Home Care Visit [facility] [address] [place] [address] Julia Gomez LAYAWAY CLERK - HOME VISIT 04/25/2025 Telephone [facility] [address] [place] [address] Paloma Escobedo, DO Medication Management (FOSFOMYCIN - alternate request) 04/24/2025 10:30 AM CDT Home Care Visit [facility] [address] [place] [address] Rhea Anderson COTA OT - HOME VISIT 04/22/2025 12:25 PM CDT Office Visit [facility] [address] [place] [address] Nicolle Cadet NP UTI 04/22/2025 8:45 AM CDT Home Care Visit [facility] [address] [place] [phone] Julia Gomez LAYAWAY CLERK - HOME VISIT 04/22/2025 Travel 04/17/2025 9:45 AM CDT Home Care Visit [facility] [address] [facility] [place] [address] Julia Gomez LAYAWAY CLERK - HOME VISIT 04/16/2025 9:00 AM CDT Home Care Visit [facility] [address] [facility] [place] [address] Rhea Anderson GILL[place] OT - HOME VISIT 04/15/2025 10:00 AM CDT Home Care Visit [facility] [address] [facility] [place] [address] Lukasz Ferrell, AUTHORIZATION REP AUTHORIZATION REP - HOME VISIT 04/14/2025 9:00 AM CDT Home Care Visit [facility] [address] [place] [address], [place] [address] Julia Gomez LAYAWAY CLERK - HOME VISIT 04/11/2025 9:00 AM CDT Home Care Visit [facility] [address] [place] [address], [place] [address] Rhea Anderson [place] OT - HOME VISIT 04/10/2025 9:30 AM CDT Home Care Visit [facility] [address] [place] [address], [place] [address] Julia Gomez LAYAWAY CLERK - HOME VISIT 04/09/2025 12:30 PM CDT Home Care Visit [facility] [address] [place] [address], [place] [address] Mya Alvarez, PT PT - DISCIPLINE DISCHARGE 04/08/2025 9:45 AM CDT Home Care Visit [facility] [address] [place] [address], [place] [address] Lukasz Ferrell, AUTHORIZATION REP AUTHORIZATION REP - HOME VISIT 04/07/2025 4:00 PM CDT Home Care Visit [facility] [address] [place] [address], [place] [address] Linda Rodriguez, OT OT - INITIAL ASSESSMENT 04/07/2025 10:45 AM CDT Home Care Visit [facility] [address] [facility] [place] [address] Mya Alvarez, PT PT - HOME VISIT 04/07/2025 9:30 AM CDT Home Care Visit [facility] [address] [facility] [place] [address] Julia Gomez LAYAWAY CLERK - HOME VISIT 04/03/2025 9:30 AM CDT Home Care Visit [facility] [address] [place] [address], [place] [address] Julia Gomez LAYAWAY CLERK - HOME VISIT 04/02/2025 11:45 AM CDT Home Care Visit [facility] [address] [place] [address], [place] [address] Lukasz Ferrell, AUTHORIZATION REP AUTHORIZATION REP - INITIAL ASSESSMENT 04/02/2025 10:45 AM CDT Home Care Visit [facility] [address] [place] [address], [place] [address] Mya Alvarez, PT PT - HOME VISIT 04/01/2025 11:00 AM CDT Home Care Visit [facility] [address] [place] [address], [place] [address] Kinza Mullins LISW TOOL ROOM SUPERVISOR - INITIAL ASSESSMENT 03/31/2025 2:00 PM CDT Home Care Visit [facility] [address] [place] [address], [place] [address] Mya Alvarez, PT PT - HOME VISIT 03/31/2025 9:30 AM CDT Home Care Visit [facility] [address] [place] [address], [place] [address] Julia Gomez LAYAWAY CLERK - HOME VISIT 03/26/2025 3:00 PM CDT Home Care Visit [facility] [address] [place] [address], [place] [address] Mya Alvarez, PT PT - OASIS START OF CARE 03/26/2025 Plan of Care Documentation [facility] [address] [facility] [place] [address] 03/19/2025 Refill [facility] [address] [place] [address] Paloma Escobedo DO Refill Request (Olanzapine) 03/18/2025 Telephone [facility] [address] [place] [address] Paloma Escobedo DO Referral (Home Care) 02/28/2025 Refill [facility] [address] [place] [address] Paloma Escobedo DO Refill Request (Glipizide) 01/31/2025 1:00 PM CDT Office Visit [facility] [address] [place] [address] Paloma Escobedo DO Hospital F/U 01/31/2025 Travel 01/30/2025 Telephone [facility] [address] [place] [address] Paloma Escobedo DO Results from Last 3 Months Immunizations Immunization Administration Dates Next Due COVID-19 vaccine ([employer] 30mcg/0.3mL) PF, MDV 11/07/2020,10/17/2020 Influenza A (H1N1), [...] on file Legal Sex Female 5:23 AM CHILDREN'S LIBRARIAN Gender Identity Not on file Sexual Orientation Not on file Occupation Industry Job Start Date Job End Date [employer] (retired) Not on file Not on file Not on file Obstetrics History Para Term AB IAB SAB Ectopic Multiple Livin g Live Births 4 4 4 4 Date Outcome GA Total Labor Labor/2nd/3rd Weight Sex Type Anes PTL Vicky A1 A5 Name Clin Term Term Term Term Last Filed Vital Signs Vital Sign Reading Time Taken Comments Blood Pressure 140/62 04/24/2025 10:34 AM CDT Pulse 52 04/24/2025 10:34 AM CDT Temperature 36.5 C (97.7 F) 04/24/2025 10:34 AM CDT Respiratory Rate 16 04/24/2025 10:34 AM CDT Oxygen Saturation 94% 04/24/2025 10:34 AM CDT Inhaled Oxygen Concentration - - Weight 82.4 kg (181 lb 9.6 oz) 04/22/2025 12:34 PM CDT Height 165.1 cm (5' 5) 05/31/2024 11:19 AM CDT Body Mass Index 30.22 05/31/2024 11:19 AM CDT Plan of Treatment Upcoming Encounters Date Type Department Care Team (Late st Contact Info) Description 04/28/2025 9:00 AM CDT Home Care Visit [address] [phone] Julia Gomez 04/29/2025 4:00 AM CDT Home Care Visit [address] [address] Lukasz Ferrell, AUTHORIZATION REP [address] [place] [address] 04/30/2025 8:30 AM CDT Home Care Visit [address] [address] Linda Rodriguez, OT [address] [place] [address] 05/01/2025 9:15 AM CDT Home Care Visit [place] [id number] [place] [phone] Julia Gomez 05/05/2025 4:00 AM CDT Home Care Visit [address] [address] Danberry, Krin L 05/08/2025 4:00 AM CDT Home Care Visit [facility] [address] [facility] [place] [address] Danberry, Krin L 05/12/2025 4:00 AM CDT Home Care Visit [facility] [address] [facility] [place] [address] Danberry, Krin L 05/15/2025 4:00 AM CDT Home Care Visit [facility] [address] [facility] [place] [address] Danberry, Krin L 05/19/2025 4:00 AM CDT Home Care Visit [facility] [address] [facility] [place] [address] Danberry, Krin L 05/22/2025 4:00 AM CDT Home Care Visit [facility] [address] [facility] [place] [address] Danberry, Krin L 07/04/2025 11:05 AM CHILDREN'S LIBRARIAN Office Visit [facility] [address] [place] [address] Paloma Escobedo DO [address] [place] [address] Health Maintenance Due Date Last Done Comments Zoster (shingles) series for age 50+ (1 of 2) 1990 RSV vaccine for adults or (1 - 1-dose 75+ series) 2015 COVID-19 vaccine series ( season) 2025 11/07/2020, 10/17/2020 Influenza Vaccine (#1) 2025 , 05/01/2023, 04/27/2022, Additional history exists BMI (ht and wt on same day) for age 18+ 05/31/2025 05/31/2024, 05/01/2023, 07/19/2021, Additional history exists Depression screening for age 12+ 05/31/2025 05/31/2024, 05/31/2024, 10/18/2023, Additional history exists Medicare Wellness for age 65+ 06/01/2025 05/31/2024, 05/01/2023, 07/19/2021, Additional history exists Tetanus booster 06/26/2025 06/26/2015, 07/21, 10/15/2002 Pneumococcal series for age 50+ Completed 08/24/2016, 04/19/2006 DEXA/DXA scan for age 65+ Completed 11/15/2018, 08/2008 Hepatitis B series for 19+ Aged Out N o longer eligible based on patient's age to complete this topic Goals Goal Patient Goal Type Associated Problems Recent Progress Patient-Stated? Author BLOOD PRESSURE - MAINTAINS BP less than 140/90 Blood Pressure Laurita Stover MD Procedures Procedure Name Priority Date/Time Associated Diagnosis Comments URINALYSIS MICROSCOPIC STAT 04/22/2025 12:23 PM CDT UTI symptoms URINE CULTURE Routine 04/22/2025 12:23 PM CDT UTI symptoms UA W/ SEDIMENT EXAM REFLEXED PER CRITERIA STAT 04/22/2025 12:23 PM CDT UTI symptoms XR DXA BONE DENSITY 2 SITES AXIAL Routine 11/15/2018 11:36 AM CDT Post-menopausal from Last 3 Months or Most Recently Relevant to Health Maintenance Results * (ABNORMAL) URINALYSIS MICROSCOPIC (04/22/2025 12:23 PM CDT) RBC 0-2 0-2, None Seen /HPF 04/22/2025 12:[address] [facility] WBC 51-100(A) 0-2, 3-5, None Seen /HPF 04/22/2025 12:[address] [facility] BACTERIA Many(A) None Seen, Rare, Few Bacteria/ HPF 04/22/2025 12:[address] [facility] EPITHELIAL CELLS Few None Seen, Few Epi/HPF 04/22/2025 12:[address] [facility] WHITE CELL CLUMPS Present(A) (none) 04/22/2025 12:[address] [facility] Urine URINE SPECIMEN / Unknown Non-Blood / Unknown 04/22/2025 12:23 PM CDT 04/22/2025 12:34 PM CDT us Nicolle Cadet AUTOMOTIVE ACCESSORY INSTALLER URINE Jana l Result [facility] [address] [place] [address] * (ABNORMAL) URINE CULTURE [07789.2] - routine (04/22/2025 12:23 PM CDT) CULTURE RESULT(A) 04/25/2025 7:21 AM CDT [facility] CULTURE 50,000-100,000 CFU/mL Escherichia coli 04/25/2025 7:21 AM CDT [facility] Comment:ESBL-positive (Exten ded-spectrum beta-lactamase); multidrug-resistant organism. Urine URINE SPECIMEN / Unknown Non-Blood / Unknown 04/22/2025 12:23 PM CDT 04/22/2025 12:34 PM CDT Narrative Organism Antibiotic Method Susceptibility Escherichia coli TRIMETHOPRIM/SULF <=09/08: S Escherichia coli AMPICILLIN >=32: R Escherichia coli CEFAZOLIN >=32: R Escherichia coli CEFAZOLIN-UC >=32: R Comment:Cefazolin-UC interpretations are for therapy of uncomplicated UTIs due to E.coli, K.pneumoniae, or P.mirablis. Cefazolin breakpoint is used as a surrogate to predict results for the oral agents - cefdinir, cefuroxime, and cephalexin, when used for therapy of uncomplicated UTIs due to E coli, K, pneumoniae, and P. mirabilis. The FDA recommends cefadroxil susceptibility can be deduced from cefazolin. Escherichia coli GENTAMICIN <=1: S Escherichia coli CEFTRIAXONE >=64: R Escherichia coli CEFTAZIDIME 16: R Escherichia coli LEVOFLOXACIN >=8: R Escherichia coli CIPROFLOXACIN >=4: R Escherichia coli PIPERACILLIN/TAZO <=4: S Escherichia coli AMPICILLIN/SULBACTAM 4: S Escherichia coli CEFEPIME R Escherichia coli MEROPENEM <=0.25: S Escherichia coli NITROFURANTOIN <=16: S us Nicolle Cadet AUTOMOTIVE ACCESSORY INSTALLER MICROBIOLOGY Jana l Result [facility] [address] [place] [address], [place] * (ABNORMAL) UA W/ SEDIMENT EXAM REFLEXED PER CRITERIA [85610.2] (04/22/2025 12:23 PM CDT) COLOR Yellow Yellow Color 04/22/2025 12:48 PM [facility] CLARITY Clear Clear Clarity 04/22/2025 12:48 PM [facility] SPECIFIC GRAVITY,URINE 1.020 1.010, 1.015, 1.020, 1.025 04/22/2025 12:48 PM [facility] PH,URINE 5.5 6.0, 7.0, 8.0, 5.5, 6.5, 7.5, 8.5 04/22/2025 12:48 PM [facility] UROBILINOGEN, QUALITATIVE Normal Normal EU/dl 04/22/2025 12:48 PM [facility] PROTEIN, URINE Trace(A) Negative mg/dL 04/22/2025 12:48 PM [facility] GLUCOSE, URINE Negative Negative mg/dL 04/22/2025 12:48 PM [facility] KETONES,URINE Negative Negative mg/dL 04/22/2025 12:48 PM [facility] BILIRUBIN,URI NE Negative Negative 04/22/2025 12:48 PM [facility] OCCULT BLOOD,URINE Small(A) Negative 04/22/2025 12:48 PM [facility] NITRITE Negative Negative 04/22/2025 12:48 PM [facility] LEUKOCYTE ESTERASE Small(A) Negative 04/22/2025 12:48 PM [facility] Urine URINE SPECIMEN / Unknown Non-Blood / Unknown 04/22/2025 12:23 PM CDT 04/22/2025 12:34 PM CDT Nicolle Cadet AUTOMOTIVE ACCESSORY INSTALLER URINE Jana l Result [facility] [address] [place] [address] * (ABNORMAL) XR DXA BONE DENSITY 2 SITES AXIAL (11/15/2018 11:36 AM CDT) Anatomical Region Laterality Modality Spine, HIPS, HIPL, HIPR Other Narrative 12/05/2018 10:55 AM CDT Please see scanned document for results of this study. Paloma Escobedo DO DEXA Final Resul t from Last 3 Months or Most Recently Relevant to Health Maintenance Additional Health Concerns Infection Onset Date Last Indicated ESBL 04/22/2025 04/22/2025 Insurance [employer] PB ONLY MEDICARE PART B HB ONLY MEDICARE PART A HB ONLY [employer] PRIME SOLUTION HB MEDICARE PART B HB ONLY [employer]IME [employer]UTIONS MEDICA PRIME SOLUTION HB HC MEDICARE PPS Advance Directives Documents on File Type Date Recorded Patient Job Order Clerk Expl anation POLST 04/26/2024 Healthcare Directive 04/02/2024 1:46 PM si gned 03/31/24 * Full Code (Latest Code Status on File) Date Activated Date Inactivated Comments 07/06/2023 9:38 PM 07/09/2023 9:16 PM Question Answer Comments Code Status Discussion: Other Care Teams Motorboat Operator Relationship Specialty Start Date End Date Paloma Escobedo DO [address] [place] [address] PCP - [facility] [address] [place] [address] 03/20/25
[2025-04-27 20:01] LABS: Appearance Urine Clear (Clear)
--- NOTE | 2025-04-27 20:32 | CRLHL7_ITS ---
For Patients: As a result of the Century Cures Act, medical imaging exams and procedure reports are released immediately into your electronic medical record. You may view this report before your referring provider. If you have questions, please contact your health care provider. Indication: Altered mental status, cough, or respiratory symptoms Technique: Noncontrast CT of the chest with multiplanar reformats. Comparison: None Findings: Lungs: No consolidation. No effusion. No pneumothorax. Mild basilar atelectasis and/or scarring. Few scattered pulmonary nodules measure up to 3 millimeters, which could be further evaluated with a 12 month follow-up CT if clinically warranted. Mediastinum: No acute abnormality appreciated. Calcific coronary arterial and aortic atherosclerosis. Lymph nodes: No gross lymphadenopathy. Upper abdomen: Cholecystectomy. Benign fatty left adrenal gland lesion. Soft tissues: No acute abnormality appreciated. Bones: No acute abnormality appreciated. Degenerative changes of the spine and shoulders. Impression: No acute abnormality appreciated. Please note that all CT scans at this facility use dose modulation, iterative reconstruction, and/or weight-based dosing when appropriate to reduce radiation dose to as low as reasonably achievable. Dictated by Davonte rGeenberg MD @ 04/27/2025 9:10:58 PM (Electronically Signed)
--- NOTE | 2025-04-27 21:16 | ED.GENADULT ---
HPI - General Adult General Date Seen: 04/27/25 Chief complaint: Urogenital Problems, Female Stated complaint: worsening uti symptoms Time Seen by Provider: 04/27/25 20:22 Source: patient and family Mode of arrival: ambulatory Limitations: no limitations History of Present Illness HPI narrative: Patient is an 84-year-old female with a history of dementia presenting to emergency department with her daughter for worsening weakness and altered mental status. She lives in home with her daughter and does have baseline dementia. She was seen 6 days ago for UTI initially treated with Keflex. Today she was given 1 time dose of fosfomycin the symptoms are not improving. They states she actually seems to be getting worse. She has not had much of an appetite today and has increased weakness with increased confusion. She is not talking as much as she usually does. They do states she has been having a cough and rhinorrhea. Has been in contact with family members who have had viral symptoms. Patient denies any chest pain, abdominal pain, headache, vision changes, dysuria, diarrhea, constipation, nausea. No other concerns noted at this time. Related Data Home Medications ?Medication ?Instructions ?Recorded ?Confirmed amlodipine 5 mg tablet 5 mg PO DAILY 07/24/23 01/15/25 atenolol 50 mg tablet 50 mg PO DAILY 07/24/23 01/15/25 glyburide 2.5 mg tablet 2.5 mg PO DAILY 07/24/23 01/15/25 lovastatin 20 mg tablet 20 mg PO DAILY 07/24/23 01/15/25 metformin 1,000 mg tablet 1,000 mg PO BID 07/24/23 01/15/25 rivaroxaban 20 mg tablet (Xarelto) 20 mg PO DAILY 12/23/23 01/15/25 sertraline 50 mg tablet 50 mg PO DAILY 12/23/23 01/15/25 cephalexin 500 mg capsule 500 mg PO BID 04/27/25 04/27/25 Previous Rx's ?Medication ?Instructions ?Recorded acetaminophen 500 mg tablet 1,000 mg (2 x 500 mg) PO TID #60 12/26/23 tabs Allergies Allergy/AdvReac Type Severity Reaction Status Date / Time amoxicillin Allergy Mild Rash Verified 01/15/25 17:46 lisinopril Allergy Mild kidney Verified 01/15/25 17:46 problems Review of Systems Status of ROS: Reports: 10 or more systems reviewed and unremarkable except as noted in History and below [facility] Medical History (Updated 04/27/25 @ 23:33 by Tatyana Abdi MD) History of pulmonary embolism ?Z86.711 - Personal history of pulmonary embolism (ICD-10) Chronic anticoagulation ?Z79.01 - meat soaker (current) use of anticoagulants (ICD-10) Diabetes ?E11.9 - Type 2 diabetes mellitus without complications (ICD-10) CKD (chronic kidney disease) ?N18.9 - Chronic kidney disease, unspecified (ICD-10) Diabetes mellitus ?E11.9 - Type 2 diabetes mellitus without complications (ICD-10) Hyperlipidemia ?E78.5 - Hyperlipidemia, unspecified (ICD-10) NSTEMI (non-ST elevated myocardial infarction) ?I21.4 - Non-ST elevation (NSTEMI) myocardial infarction (ICD-10) Hypertension ?I10 - Essential (primary) hypertension (ICD-10) Surgical History History of hip surgery (08/24/10) ?Z98.890 - Other specified postprocedural states (ICD-10) History of breast biopsy (10/07/10) ?Z98.890 - Other specified postprocedural states (ICD-10) History of arthroscopy of left knee (07/02/15) ?Z98.890 - Other specified postprocedural states (ICD-10) H/O reduction of closed fracture (12/24/23) ?Z87.81 - Personal history of (healed) traumatic fracture (ICD-10) Social History What is your current living situation?: I presently have a place to live Problems where you live: no known problems Problems where you live details: no known problems In the past 12 months, utilities in danger of being shut off: no In past 12 months, lack of transportation kept you from medical appts, meetings, work, or getting things needed for daily living: no In the past 12 mos, have been you worried that your food would run out before you had money to buy more?: never true In the past 12 mos, the food you bought just didn't last and you didn't have money to buy more?: never true Highest level of school completed/degree received: 12th grade, no diploma Smoking Status: Never smoker Second hand tobacco smoke exposure: No How often do you have a drink containing alcohol: never AUDIT-C Alcohol total score: 0 Non-prescribed substance use: denies use Caffeine: Yes (Coffee) How often does anyone, including family, friends and others, physically hurt you: never How often does anyone, including family, friends and others, insult or talk down to you: never How often does anyone, including family, friends and others, threaten you with harm: never How often does anyone, including family, friends and others, scream or curse at you: never service: No Exam Narrative: Exam Narrative: Const: Well-nourished, Well-developed, in no distress Eyes: PERRL, no conjunctival injection, and symmetrical lids HENT: Atraumatic external nose and ears. Moist mucous membranes. Neck: Symmetric, trachea midline, No thyromegaly. CVS: RRR, No murmurs or gallops. Peripheral pulses 2+ and equal in all extremities RESP: Unlabored respiratory effort. Clear to auscultation bilaterally. GI: Nontender/Nondistended, No rebound or guarding. MSK:Extremities w/o deformity, Normal Active ROM Skin: Warm, Dry. No rashes or lesions. Neuro: Normal Muscle tone, Cranial nerves 2-12 grossly intact, normal [id number], normal [id number], normal strength 5/5 upper lower extremities bilaterally, normal sensation upper and lower extremities bilaterally, normal rapid alternating movements. Psych: Awake, Alert, & Oriented x3. Appropriate mood and affect. Const: Vital Signs, click to edit/add: Vital Signs - 24 hr 04/27/25 19:16 04/27/25 22:05 04/27/25 22:06 Temperature 98.5 F Pulse Rate 61 62 Pulse Rate [Pulse Oximeter] 64 Pulse Rate [Right Pulse Oximeter] Respiratory Rate 16 17 15 Blood Pressure 131/54 L Blood Pressure [Ri ght Arm] Blood Pressure [Ri ght Upper Arm] 150/74 H Pulse Oximetry 93 95 95 Oxygen Delivery Me thod Room Air 04/27/25 22:15 04/27/25 22:30 04/27/25 22:32 Temperature Pulse Rate 61 61 63 Pulse Rate [Pulse Oximeter] Pulse Rate [Right Pulse Oximeter] Respiratory Rate 18 15 14 Blood Pressure 134/54 L Blood Pressure [Ri ght Arm] Blood Pressure [Ri ght Upper Arm] Pulse Oximetry 94 97 98 Oxygen Delivery Me thod 04/27/25 22:45 04/27/25 23:04 04/27/25 23:04 Temperature 98.5 F Pulse Rate 63 Pulse Rate [Pulse Oximeter] Pulse Rate [Right Pulse Oximeter] 67 Respiratory Rate 20 18 18 Blood Pressure Blood Pressure [Ri ght Arm] 153/66 H Blood Pressure [Ri ght Upper Arm] Pulse Oximetry 98 98 93 Oxygen Delivery Me thod Room Air Room Air Course Vital Signs Vital signs: Initial Vital Signs Temperature 98.5 F 04/27/25 19:16 Temperature Source Temporal Artery Scan 04/27/25 19:16 Pulse Rate 64 04/27/25 19:16 Respiratory Rate 16 04/27/25 19:16 Blood Pressure 150/74 H 04/27/25 19:16 Blood Pressure Mean 99 04/27/25 19:16 Pulse Oximetry 93 04/27/25 19:16 Oxygen Delivery Method Room Air 04/27/25 19:16 Vital Signs Temperature 98.5 F 04/27/25 19:16 Pulse Rate 64 04/27/25 19:16 Respiratory Rate 16 04/27/25 19:16 Blood Pressure 150/74 H 04/27/25 19:16 Pulse Oximetry 93 04/27/25 19:16 Oxygen Delivery Method Room Air 04/27/25 19:16 Temperature 98.5 F 04/27/25 23:04 Pulse Rate 67 04/27/25 23:04 Respiratory Rate 18 04/27/25 23:04 Blood Pressure 153/66 H 04/27/25 23:04 Pulse Oximetry 98 04/27/25 23:04 Oxygen Delivery Method Room Air 04/27/25 23:04 Medications Administered Medications: Generic Name Dose Route Start Last Admin Trade Name Freq PRN Reason Stop Dose Admin Sodium Chloride 1,000 mls @ 100 mls/hr 04/27/25 23:30 04/28/25 00:03 0.9 % Sodium Chloride 1000 Ml IV 100 mls/hr .Q10H SHARA Administration Discontinued Medications Generic Name Dose Route Start Last Admin Trade Name Freq PRN Reason Stop Dose Admin Sodium Chloride 1,000 mls @ 1,000 mls/hr 04/27/25 20:45 04/27/25 21:33 0.9 % Sodium Chloride 1000 Ml IV 04/27/25 21:44 1,000 mls/hr .Q1H SHARA Administration Medical Decision Making MDM Narrative Medical decision making narrative: Patient is an 84-year-old female presenting to the emergency department for weakness. The differential diagnosis of generalized weakness is broad and includes infection, electrolyte abnormalities, ACS, arrhythmia, hypoglycemia, electrolyte abnormality, respiratory failure, anemia, hypothyroidism, dehydration, medication induced etc. will do a CBC, BMP, urinalysis, viral swabs, EKG, troponin, magnesium. Will will straight to CT scan the chest to look for signs of pneumonia. CT scan of the chest reviewed by myself and the radiologist shows no acute concerning abnormalities. Lab work returned showing that the patient does have COVID. Her creatinine is also 2.3. Most recent creatinine on file is in the 1.2-1.4 range. She likely has an EUGENIA from dehydration as she has not been drinking much the past few days due to her symptoms. The weakness and decreased appetite is very likely related to the COVID. I do believe she needs to be admitted. Family is agreeable to this plan. EKG reviewed by myself independently shows no concerning abnormalities. Lab Data Labs: Lab Results 04/27/25 04/27/25 Range/Units 19:30 20:32 WBC 5.63 (4.50-11.00) K/uL RBC 3.71 L (4.00-5.20) m/uL Hgb 10.7 L (12.0-16.0) gm/dL Hct 33.5 (33.0-51.0) % MCV 90 (80-100) fL MCH 29 (26-34) pg MCHC 32 (32-36) gm/dL RDW Coeff of Giovanni 13.1 (11.5-15.5) % Plt Count 166 (140-440) K/uL Neut % (Auto) 64.2 (42.0-72.0) % Lymph % (Auto) 21.0 (20-44) % [place] % (Auto) 13.7 H (0.0-11.0) % Eos % (Auto) 0.7 (0.0-7.0) % Baso % (Auto) 0.2 (0.0-3.0) % Neut # (Auto) 3.62 (1.7-7.0) K/uL Lymph # (Auto) 1.18 (0.90-2.90) K/uL [place] # (Auto) 0.80 (0.00-0.90) K/UL Eos # (Auto) 0.04 (0.00-0.50) K/uL Baso # (Auto) 0.01 (0.00-0.30) K/uL Abs Immat Gran (auto) 0.01 (0.00-0.30) K/uL Imm/Tot Granulo (auto) 0.2 % Sodium 139 (135-149) mmol/L Potassium 4.9 (3.6-5.1) mmol/L Chloride 103 (96-114) mmol/L Carbon Dioxide 27 (20-32) mmol/L Anion Gap 9 (7-15) mEq/L BUN 45 H (7-30) mg/dL Creatinine 2.3 H (0.5-1.5) mg/dL Estimated Creat Clear 17.05 Estimated GFR 20 ml/min Glucose 121 H (60-115) mg/dL Calcium 9.3 (8.4-10.6) mg/dL Magnesium 2.2 (1.5-2.6) mg/dL Troponin I < 0.01 (0.01-0.04) ng/mL Urine Color Yellow (Yellow) Urine Appearance Clear (Clear) Urine pH 5.0 (5.0-8.5) Ur Specific [place] 1.025 (1.000-1.030) Urine Protein 2+ A (Negative) Urine Glucose (UA) Negative (Negative) Urine Ketones Trace A (Negative) Urine Blood 2+ A (Negative) Urine Nitrite Negative (Negative) Urine Bilirubin Negative (Negative) Urine Urobilinogen 0.2 (0.2-1.0) Ur Leukocyte Esterase Negative (Negative) Urine RBC 0-2 (0-2) Urine WBC 2-5 (0-5) Ur Squamous Epith Cells Moderate A (None-Few) Urine Bacteria Few A (None) SARS-CoV-2 (PCR) POSITIVE SARS-CoV-2 A (Negative) Influenza Type A (PCR) Negative PCR FLU A (Negative) Influenza Type B (PCR) Negative PCR FLU B (Negative) RSV (PCR) Negative PCR RSV (Negative) Imaging Data CT scan chest: Attestation: I have reviewed the pertinent imaging results. Radiologist's impression: No acute abnormality appreciated. Please note that all CT scans at this facility use dose modulation, iterative reconstruction, and/or weight-based dosing when appropriate to reduce radiation dose to as low as reasonably achievable. Dictated by Davotne Greenberg MD @ 04/27/2025 9:10:58 PM ECG Data Attestation: I personally reviewed and interpreted this ECG as follows: Prior ECG tracings: available for review Interpretation: Normal sinus rhythm with a rate of 60 beats per minute, normal intervals, normal axis, no ST or T-wave abnormalities. Appears similar previous EKG on file. Discharge Plan Discharge Clinical Impression: COVID, Acute kidney injury Patient Disposition: Admitted As Inpatient Condition: Stable
[2025-04-27 21:20] LABS: PCR FLU A Negative PCR FLU A (Negative); PCR FLU B Negative PCR FLU B (Negative); PCR RSV Negative PCR RSV (Negative); SARS PCR* POSITIVE SARS-CoV-2 (Negative)
[2025-04-27 21:48] LABS: Hematocrit* 33.5 % (33.0-51.0); Hemoglobin* 10.7 gm/dL (12.0-16.0); Immature Granulocytes Abs Auto 0.01 K/uL (0.00-0.30); Immature Granulocytes Pct Auto 0.2 %; Lymphocytes Absolute Auto 1.18 K/uL (0.90-2.90); Mean Corpuscular HGB Conc 32 gm/dL (32-36); Mean Corpuscular Hemoglobin 29 pg (26-34); Mean Corpuscular Volume 90 fL (80-100); RDW Coefficient of Variation % 13.1 % (11.5-15.5); Red Blood Count* 3.71 m/uL (4.00-5.20); White Blood Count* 5.63 K/uL (4.50-11.00)
[2025-04-27 21:54] LABS: Slide Review Reflex No
[2025-04-27 21:57] LABS: Chloride* 103 mmol/L (96-114); Sodium* 139 mmol/L (135-149)
[2025-04-27 21:58] LABS: Potassium* 4.9 mmol/L (3.6-5.1)
[2025-04-27 22:00] LABS: Anion Gap 9 mEq/L (7-15); Blood Urea Nitrogen* 45 mg/dL (7-30); Carbon Dioxide* 27 mmol/L (20-32); Creatinine* 2.3 mg/dL (0.5-1.5); Est. Creatinine Clearance* 17.05; Estimated Glomerular Filt Rate 20 ml/min
[2025-04-27 22:01] LABS: Calcium* 9.3 mg/dL (8.4-10.6); Glucose* 121 mg/dL (60-115)
--- NOTE | 2025-04-27 23:28 | PM.IMHP1 ---
Assessment and Plan Assessment and plan (1) COVID: Problem comment: - There is no indication for dexamethasone as patient is not hypoxic. - with an EUGENIA and creatinine of 2.3 will not be giving remdesivir. - Patient has an EUGENIA, likely prerenal we will give fluids and monitor kidney function. Status: Acute (2) Acute kidney injury: Problem comment: -status post IV fluid bolus at the ED -will give maintenance IV fluid 100 mL/hour Status: Acute (3) Diabetes: Problem comment: Hold p.o. 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 Status: Acute Total Time Spent Total Time Spent: Time spent: Today I spent 52 minutes seeing the patient, discussing the patient with ER staff, reviewing Expanse and EPIC notes/diagnostics, discussing the care plan with our care time that includes social work, PT/OT, pharmacy, RT, snf and documenting my impressions and plan in the medical record. 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 Patient is having mild cough, no SOB, no dyspnea on exertion, no chest pain or bowel movement changes. patient took her Xarelto for today. Per her daughter, patient does not have history of cardiac or pulmonary problems other than the PE. at the ED patient was found hemodynamically stable, Afebrile, not hypoxic. WBCs within normal but her creatinine was elevated at 2.3 ( her baseline is around 1.3). CT chest was done at the ED and it was without any acute pathology. patient was given fluids at the ED and admitted for further evaluation and management. Review of Systems Status of ROS: Reports: 6 or more systems reviewed and unremarkable except as noted in History and below Medical Decision Making Medical Decision Making Has patient completed a Health Care Directive: No PFSH PFS Medical History (Updated 04/27/25 @ 23:33 by Tatyana Abdi MD) History of pulmonary embolism ?Z86.711 - Personal history of pulmonary embolism (ICD-10) Chronic anticoagulation ?Z79.01 - detention (current) use of anticoagulants (ICD-10) Diabetes ?E11.9 - Type 2 diabetes mellitus without complications (ICD-10) CKD (chronic kidney disease) ?N18.9 - Chronic kidney disease, unspecified (ICD-10) Diabetes mellitus ?E11.9 - Type 2 diabetes mellitus without complications (ICD-10) Hyperlipidemia ?E78.5 - Hyperlipidemia, unspecified (ICD-10) NSTEMI (non-ST elevated myocardial infarction) ?I21.4 - Non-ST elevation (NSTEMI) myocardial infarction (ICD-10) Hypertension ?I10 - Essential (primary) hypertension (ICD-10) Surgical History History of hip surgery (08/24/10) ?Z98.890 - Other specified postprocedural states (ICD-10) History of breast biopsy (10/07/10) ?Z98.890 - Other specified postprocedural states (ICD-10) History of arthroscopy of left knee (07/02/15) ?Z98.890 - Other specified postprocedural states (ICD-10) H/O reduction of closed fracture (12/24/23) ?Z87.81 - Personal history of (healed) traumatic fracture (ICD-10) Social History What is your current living situation?: I presently have a place to live Problems where you live: no known problems Problems where you live details: no known problems In the past 12 months, utilities in danger of being shut off: no In past 12 months, lack of transportation kept you from medical appts, meetings, work, or getting things needed for daily living: no In the past 12 mos, have been you worried that your food would run out before you had money to buy more?: never true In the past 12 mos, the food you bought just didn't last and you didn't have money to buy more?: never true Highest level of school completed/degree received: 12th grade, no diploma Smoking Status: Never smoker Second hand tobacco smoke exposure: No How often do you have a drink containing alcohol: never AUDIT-C Alcohol total score: 0 Non-prescribed substance use: denies use Caffeine: Yes (Coffee) How often does anyone, including family, friends and others, physically hurt you: never How often does anyone, including family, friends and others, insult or talk down to you: never How often does anyone, including family, friends and others, threaten you with harm: never How often does anyone, including family, friends and others, scream or curse at you: never service: No Meds Home Medications and Allergies Home Medications ?Medication ?Instructions ?Recorded ?Confirmed ?Type amlodipine 5 mg tablet 5 mg PO DAILY 07/24/23 01/15/25 History atenolol 50 mg tablet 50 mg PO DAILY 07/24/23 01/15/25 History glyburide 2.5 mg tablet 2.5 mg PO DAILY 07/24/23 01/15/25 History lovastatin 20 mg tablet 20 mg PO DAILY 07/24/23 01/15/25 History metformin 1,000 mg tablet 1,000 mg PO BID 07/24/23 01/15/25 History rivaroxaban 20 mg tablet (Xarelto) 20 mg PO DAILY 12/23/23 01/15/25 History sertraline 50 mg tablet 50 mg PO DAILY 12/23/23 01/15/25 History acetaminophen 500 mg tablet 1,000 mg (2 x 500 mg) PO TID #60 12/26/23 01/15/25 Rx tabs cephalexin 500 mg capsule 500 mg PO BID 04/27/25 04/27/25 History Allergies Allergy/AdvReac Type Severity Reaction Status Date / Time amoxicillin Allergy Mild Rash Verified 01/15/25 17:46 lisinopril Allergy Mild kidney Verified 01/15/25 17:46 problems Exam Narrative: Exam Narrative: Physical exam GENERAL: Comfortable, no acute distress. HEAD AND NECK: Atraumatic, normocephalic CARDIOVASCULAR: RRR. Normal S1, S2. No murmurs. RESPIRATORY: Clear to auscultation B/L. Good air entry B/L. No wheezes or rhonchi. GASTROINTESTINAL: Not distended, not tender to palpation. NEUROLOGY: Confused. Const: Vital Signs, click to edit/add: Vital Signs - 24 hr 04/27/25 19:16 04/27/25 22:05 04/27/25 22:06 Temperature 98.5 F Pulse Rate 61 62 Pulse Rate [Pulse Oximeter] 64 Respiratory Rate 16 17 15 Blood Pressure 131/54 L Blood Pressure [Ri ght Upper Arm] 150/74 H Pulse Oximetry 93 95 95 Oxygen Delivery Me od Room Air 04/27/25 22:15 04/27/25 22:30 04/27/25 22:32 Temperature Pulse Rate 61 61 63 Pulse Rate [Pulse Oximeter] Respiratory Rate 18 15 14 Blood Pressure 134/54 L Blood Pressure [Ri ght Upper Arm] Pulse Oximetry 94 97 98 Oxygen Delivery Me thod 04/27/25 22:45 Temperature Pulse Rate 63 Pulse Rate [Pulse Oximeter] Respiratory Rate 20 Blood Pressure Blood Pressure [Ri ght Upper Arm] Pulse Oximetry 98 Oxygen Delivery Me od Hospitalist - H&P: Result Labs Labs: Short CBC 04/27/25 Range/Units 20:32 WBC 5.63 (4.50-11.00) K/uL Hgb 10.7 L (12.0-16.0) gm/dL Hct 33.5 (33.0-51.0) % Plt Count 166 (140-440) K/uL BMP 04/27/25 20:32 Sodium 139 Potassium 4.9 Chloride 103 Carbon Dioxide 27 BUN 45 H Creatinine 2.3 H Glucose 121 H Calcium 9.3 Cardiac Enzymes 04/27/25 Range/Units 20:32 Troponin I < 0.01 (0.01-0.04) ng/mL Urine 04/27/25 Range/Units 19:30 Urine Color Yellow (Yellow) Urine Appearance Clear (Clear) Urine pH 5.0 (5.0-8.5) Ur Specific [place] 1.025 (1.000-1.030) Urine Protein 2+ A (Negative) Urine Glucose (UA) Negative (Negative) Imaging CT scan - chest: Attestation: I have reviewed the pertinent imaging results. Radiologist's impression: Indication: Altered mental status, cough, or respiratory symptoms Technique: Noncontrast CT of the chest with multiplanar reformats. Comparison: None Findings: Lungs: No consolidation. No effusion. No pneumothorax. Mild basilar atelectasis and/or scarring. Few scattered pulmonary nodules measure up to 3 millimeters, which could be further evaluated with a 12 month follow-up CT if clinically warranted. Mediastinum: No acute abnormality appreciated. Calcific coronary arterial and aortic atherosclerosis. Lymph nodes: No gross lymphadenopathy. Upper abdomen: Cholecystectomy. Benign fatty left adrenal gland lesion. Soft tissues: No acute abnormality appreciated. Bones: No acute abnormality appreciated. Degenerative changes of the spine and shoulders. Impression: No acute abnormality appreciated. Please note that all CT scans at this facility use dose modulation, iterative reconstruction, and/or weight-based dosing when appropriate to reduce radiation dose to as low as reasonably achievable. Dictated by Davonte Greenberg MD @ 04/27/2025 9:10:58 PM
[2025-04-28 01:12] LABS: PCR FLU A Negative PCR FLU A (Negative); PCR FLU B Negative PCR FLU B (Negative); PCR RSV Negative PCR RSV (Negative); SARS PCR* POSITIVE SARS-CoV-2 (Negative)
[2025-04-28 03:00] VITALS: BP 161/63; PULSE 63; RESP 15; TEMP 36.6; O2SAT 95
[2025-04-28 06:32] LABS: Hematocrit* 30.4 % (33.0-51.0); Hemoglobin* 9.8 gm/dL (12.0-16.0); Mean Corpuscular HGB Conc 32 gm/dL (32-36); Mean Corpuscular Hemoglobin 29 pg (26-34); Mean Corpuscular Volume 90 fL (80-100); Red Blood Count* 3.39 m/uL (4.00-5.20); White Blood Count* 3.62 K/uL (4.50-11.00)
[2025-04-28 06:43] LABS: Slide Review Reflex No
[2025-04-28 06:46] LABS: Albumin* 3.6 g/dL (3.3-5.0); Chloride* 110 mmol/L (96-114)
[2025-04-28 06:47] LABS: Potassium* 4.7 mmol/L (3.6-5.1); Sodium* 139 mmol/L (135-149)
--- NOTE | 2025-04-28 06:47 | PC.NURSE ---
This patient arrived in the late night from the emergency department with a diagnosis of COVID and confusion over baseline dementia. Able to speak fluently and was fully alert. We were able to walk with stand by assistance to the bathroom and back in the morning. Overall impression is that of someone relatively well with ongoing dementia. I did not note significant disorientation or confusion. No major developments overnight. They slept very well and were able to articulate their need to use the restroom and then wait for assistance. Awaiting further assessment today to determine plan of care going forward.?
[2025-04-28 06:49] LABS: Alanine Aminotransferase* 11 U/L (4-35); Anion Gap 5 mEq/L (7-15); Aspartate Amino Transferase* 21 U/L (12-35); Blood Urea Nitrogen* 40 mg/dL (7-30); Carbon Dioxide* 24 mmol/L (20-32); Creatinine* 1.9 mg/dL (0.5-1.5); Est. Creatinine Clearance* 20.63; Estimated Glomerular Filt Rate 26 ml/min; Total Protein* 6.6 g/dL (6.0-8.3)
[2025-04-28 06:50] LABS: Alkaline Phosphatase* 46 U/L (40-150); Bilirubin Total* 0.3 mg/dL (0.1-1.5); Calcium* 8.9 mg/dL (8.4-10.6); Glucose* 127 mg/dL (60-115)
[2025-04-28 07:00] VITALS: BP 163/65; PULSE 65; RESP 18; TEMP 36.8; O2SAT 94
[2025-04-28 07:33] VITALS: PULSE 58
[2025-04-28] MEDS: AMLODIPINE 5 MG TABLET PO (08:37)
[2025-04-28] MEDS: SERTRALINE 50 MG TABLET PO (08:37)
--- NOTE | 2025-04-28 09:39 | PM.IMPN1 ---
Assessment and Plan Assessment and plan (1) COVID: Problem comment: - There is no indication for dexamethasone as patient is not hypoxic. - with an EUGENIA and creatinine of 2.3 will not be giving remdesivir. - PT/OT to assist with generalized weakness, plan to be able to return to home Status: Acute (2) Acute kidney injury: Problem comment: -creatinine 2.3 in the ED, suspected prerenal, improved to 1.9 following IVF -status post IV fluid bolus at the ED -continue maintenance IV fluid 100 mL/hour Status: Acute (3) Diabetes: Problem comment: Hold p.o. 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 Subjective Date Seen: 04/28/25 Interval history: Patient is seen sitting up in the chair this morning. Reports feeling pretty well. Remains afebrile. Vitally stable. No hypoxia or dyspnea. Creatinine improving, 1.9 Exam Narrative: Exam Narrative: PHYSICAL EXAM General: Pleasant, conversant, NAD HEENT: Normocephalic, atraumatic, sclera white, EOMI, oral mucosa moist Cardiovascular: RRR, S1S2 Pulmonary: CTA bilaterally without rhonchi, rales, expiratory wheezes. No dyspnea Neurological: Alert, answering questions appropriately, cranial nerves intact, no focal findings Extremities: No gross joint deformity or swelling. AROMI. Neurovascularly intact Skin: Warm, dry. Const: Vital Signs, click to edit/add: Vital Signs - 24 hr 04/27/25 19:16 04/27/25 22:05 04/27/25 22:06 Temperature 98.5 F Pulse Rate 61 62 Pulse Rate [Pulse Oximeter] 64 Pulse Rate [Right Pulse Oximeter] Respiratory Rate 16 17 15 Blood Pressure 131/54 L Blood Pressure [Ri ght Arm] Blood Pressure [Ri ght Upper Arm] 150/74 H Pulse Oximetry 93 95 95 Oxygen Delivery Me thod Room Air 04/27/25 22:15 04/27/25 22:30 04/27/25 22:32 Temperature Pulse Rate 61 61 63 Pulse Rate [Pulse Oximeter] Pulse Rate [Right Pulse Oximeter] Respiratory Rate 18 15 14 Blood Pressure 134/54 L Blood Pressure [Ri ght Arm] Blood Pressure [Ri ght Upper Arm] Pulse Oximetry 94 97 98 Oxygen Delivery Me thod 04/27/25 22:45 04/27/25 23:04 04/27/25 23:04 Temperature 98.5 F Pulse Rate 63 Pulse Rate [Pulse Oximeter] Pulse Rate [Right Pulse Oximeter] 67 Respiratory Rate 20 18 18 Blood Pressure Blood Pressure [Ri ght Arm] 153/66 H Blood Pressure [Ri ght Upper Arm] Pulse Oximetry 98 98 93 [facility] 04/28/25 03:00 04/28/25 07:33 Temperature 97.9 F Pulse Rate 58 L Pulse Rate [Pulse Oximeter] Pulse Rate [Right Pulse Oximeter] 63 Respiratory Rate 15 Blood Pressure Blood Pressure [Ri ght Arm] 161/63 H Blood Pressure [Ri ght Upper Arm] Pulse Oximetry 95 [facility] Labs Labs: Laboratory Results - last 24 hr 04/27/25 04/27/25 04/28/25 19:30 20:32 06:11 WBC 5.63 3.62 L RBC 3.71 L 3.39 L Hgb 10.7 L 9.8 L Hct 33.5 30.4 L MCV 90 90 MCH 29 29 MCHC 32 32 RDW Coeff of Giovanni 13.1 Plt Count 166 146 Neut % (Auto) 64.2 Lymph % (Auto) 21.0 [place] % (Auto) 13.7 H Eos % (Auto) 0.7 Baso % (Auto) 0.2 Neut # (Auto) 3.62 Lymph # (Auto) 1.18 [place] # (Auto) 0.80 Eos # (Auto) 0.04 Baso # (Auto) 0.01 Abs Immat Gran (auto) 0.01 Imm/Tot Granulo (auto) 0.2 Sodium 139 139 Potassium 4.9 4.7 Chloride 103 110 Carbon Dioxide 27 24 Anion Gap 9 5 L BUN 45 H 40 H Creatinine 2.3 H 1.9 H Estimated Creat Clear 17.05 20.63 Estimated GFR 20 26 Glucose 121 H 127 H Calcium 9.3 8.9 Magnesium 2.2 2.1 Total Bilirubin 0.3 AST 21 ALT 11 Alkaline Phosphatase 46 Troponin I < 0.01 Total Protein 6.6 Albumin 3.6 Urine Color Yellow Urine Appearance Clear Urine pH 5.0 Ur Specific [place] 1.025 Urine Protein 2+ A Urine Glucose (UA) Negative Urine Ketones Trace A Urine Blood 2+ A Urine Nitrite Negative Urine Bilirubin Negative Urine Urobilinogen 0.2 Ur Leukocyte Esterase Negative Urine RBC 0-2 Urine WBC 2-5 Ur Squamous Epith Cells Moderate A Urine Bacteria Few A SARS-CoV-2 (PCR) POSITIVE SARS-CoV-2 A POSITIVE SARS-CoV-2 A Influenza Type A (PCR) Negative PCR FLU A Negative PCR FLU A Influenza Type B (PCR) Negative PCR FLU B Negative PCR FLU B RSV (PCR) Negative PCR RSV Negative PCR RSV
--- NOTE | 2025-04-28 10:33 | NUTR.NU ---
RDN with nutrition screen for heart healthy diet. Patient admitted with COVID. Medical history includes, but not limited to EUGENIA, diabetes mellitus, chronic anticoagulation, hx of pulmonary embolism, hypertension, and hyperlipidemia. Current weight 179lbs, height 5ft 6inches, and BMI 29.0 kg/m2. No recent weight history available to review at this time. No intakes recorded at this time. Patient reports a good appetite. Patient declined nutrition education on the heart healthy diet, but was accepting of nutrition education materials. Patient lives with daughter and son-in-law and notes that she will pass the handouts along. RDN contact information provided and encouraged patient to call with questions. RDN to follow up as needed.
--- NOTE | 2025-04-28 11:26 | PM.DS1 ---
DS: Providers Provider Date Seen: 04/28/25 Date of admission: 04/27/25 23:28 Primary care physician: Paloma Escobedo DO Admitting Clinician: Tatyana Abdi MD Consults: 04/27/25 23:29 Consult to Occupational Therapy [CONS] Routine Comment: Reason(s) for OT Consult:: Evaluate and Treat Any Restrictions?:: No Restrictions Consult to Physical Therapy [CONS] Routine Comment: Reason(s) for PT Consult:: Evaluate and Treat Any Restrictions?:: No Restrictions Attending Physician on discharge: BRITTANY Ziegler, [facility] Date of Discharge: 04/28/25 DS: Diagnosis Discharge Diagnosis (1) COVID: Status: Acute Problem details: Admitted with symptomatic COVID, no indication for dexamethasone as patient is not hypoxic and with an EUGENIA and creatinine of 2.3 will not be giving remdesivir. PT and OT assessed, no acute ongoing needs, okay to return home where she lives with her daughter and son-in-law. (2) Acute kidney injury: Status: Acute Problem details: Creatinine 2.3 in the ED, suspected prerenal, improved to 1.9 following IVF in the ED as well as on the floor. Suspect this will continue to trend down. Encouraged to drink electrolyte replacement fluids upon discharge. Recheck BMP with PCP in 7-10 days following COVID resolution. 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 Admitted to hospital with weakness and EUGENIA in setting of acute COVID infection. No hypoxia. Remained vitally stable. Management as above. Recommend ongoing oral hydration with electrolyte replacement upon discharge. Recheck BMP with PCP in 7-10 days following COVID resolution. Remainder of chronic medical comorbidities were monitored and managed with home medications. Status at Discharge Functional status at discharge: independent ambulation Overall status at discharge: patient is back to baseline Time Spent with Patient Time attestation: Total time spent providing and/or coordinating discharge services: Time spent: Greater than 30 minutes Exam Narrative: Exam Narrative: PHYSICAL EXAM General: Pleasant, conversant, NAD Cardiovascular: RRR Pulmonary: No dyspnea Neurological: Alert, answering questions appropriately Skin: Warm, dry. Const: Vital Signs, click to edit/add: Vital Signs - 24 hr 04/27/25 19:16 04/27/25 22:05 04/27/25 22:06 Temperature 98.5 F Pulse Rate 61 62 Pulse Rate [Pulse Oximeter] 64 Pulse Rate [Right Pulse Oximeter] Respiratory Rate 16 17 15 Blood Pressure 131/54 L Blood Pressure [Ri ght Arm] Blood Pressure [Ri ght Upper Arm] 150/74 H Pulse Oximetry 93 95 95 Oxygen Delivery Me thod Room Air 04/27/25 22:15 04/27/25 22:30 04/27/25 22:32 Temperature Pulse Rate 61 61 63 Pulse Rate [Pulse Oximeter] Pulse Rate [Right Pulse Oximeter] Respiratory Rate 18 15 14 Blood Pressure 134/54 L Blood Pressure [Ri ght Arm] Blood Pressure [Ri ght Upper Arm] Pulse Oximetry 94 97 98 Oxygen Delivery Me thod 04/27/25 22:45 04/27/25 23:04 04/27/25 23:04 Temperature 98.5 F Pulse Rate 63 Pulse Rate [Pulse Oximeter] Pulse Rate [Right Pulse Oximeter] 67 Respiratory Rate 20 18 18 Blood Pressure Blood Pressure [Ri ght Arm] 153/66 H Blood Pressure [Ri ght Upper Arm] Pulse Oximetry 98 98 93 Oxygen Delivery Id thod Room Air Room Air 04/28/25 03:00 04/28/25 07:33 Temperature 97.9 F Pulse Rate 58 L Pulse Rate [Pulse Oximeter] Pulse Rate [Right Pulse Oximeter] 63 Respiratory Rate 15 Blood Pressure Blood Pressure [Ri ght Arm] 161/63 H Blood Pressure [Ri ght Upper Arm] Pulse Oximetry 95 Oxygen Delivery Me thod Room Air DS: Data Data Completed and Pending Completed studies during hospitalization: Procedures Reposition Left Upper Femur with Internal Fixation Device, Percutaneous Approach (12/23/23) Labs on day of discharge: Labs from last 24 hours 04/28/25 04/27/25 04/27/25 06:11 20:32 19:30 WBC 3.62 L 5.63 RBC 3.39 L 3.71 L Hgb 9.8 L 10.7 L Hct 30.4 L 33.5 MCV 90 90 MCH 29 29 MCHC 32 32 RDW Coeff of [place] 13.1 Plt Count 146 166 Neut % (Auto) 64.2 Lymph % (Auto) 21.0 [place] % (Auto) 13.7 H Eos % (Auto) 0.7 Baso % (Auto) 0.2 Neut # (Auto) 3.62 Lymph # (Auto) 1.18 [place] # (Auto) 0.80 Eos # (Auto) 0.04 Baso # (Auto) 0.01 Abs Immat Gran (auto) 0.01 Imm/Tot Granulo (auto) 0.2 Sodium 139 139 Potassium 4.7 4.9 Chloride 110 103 Carbon Dioxide 24 27 Anion Gap 5 L 9 BUN 40 H 45 H Creatinine 1.9 H 2.3 H Estimated Creat Clear 20.63 17.05 Estimated GFR 26 20 Glucose 127 H 121 H Calcium 8.9 9.3 Magnesium 2.1 2.2 Total Bilirubin 0.3 AST 21 ALT 11 Alkaline Phosphatase 46 Troponin I < 0.01 Total Protein 6.6 Albumin 3.6 Urine Color Yellow Urine Appearance Clear Urine pH 5.0 Ur Specific [place] 1.025 Urine Protein 2+ A Urine Glucose (UA) Negative Urine Ketones Trace A Urine Blood 2+ A Urine Nitrite Negative Urine Bilirubin Negative Urine Urobilinogen 0.2 Ur Leukocyte Esterase Negative Urine RBC 0-2 Urine WBC 2-5 Ur Squamous Epith Cells Moderate A Urine Bacteria Few A SARS-CoV-2 (PCR) POSITIVE SARS-CoV-2 A POSITIVE SARS-CoV-2 A Influenza Type A (PCR) Negative PCR FLU A Negative PCR FLU A Influenza Type B (PCR) Negative PCR FLU B Negative PCR FLU B RSV (PCR) Negative PCR RSV Negative PCR RSV Preliminary micro results at discharge 04/27/25 19:30 Urine Culture - Preliminary Urine,Clean Catch Culture in Progress Imaging CT scan - chest: Attestation: I have reviewed the pertinent imaging results. Radiologist's impression: Findings: Lungs: No consolidation. No effusion. No pneumothorax. Mild basilar atelectasis and/or scarring. Few scattered pulmonary nodules measure up to 3 millimeters, which could be further evaluated with a 12 month follow-up CT if clinically warranted. Mediastinum: No acute abnormality appreciated. Calcific coronary arterial and aortic atherosclerosis. Lymph nodes: No gross lymphadenopathy. Upper abdomen: Cholecystectomy. Benign fatty left adrenal gland lesion. Soft tissues: No acute abnormality appreciated. Bones: No acute abnormality appreciated. Degenerative changes of the spine and shoulders. Impression: No acute abnormality appreciated. Discharge Plan Discharge Disposition: Home, Self-Care Date of Admission: 04/27/25 23:28 Attending Provider on Discharge: Josee cJ Primary Care Provider: Paloma Escobedo Condition: Stable Anticipated Discharge Date/Time: 04/28/25 14:00 Discharge Medications: Continued amlodipine 5 mg tablet 5 mg PO DAILY lovastatin 20 mg tablet 20 mg PO HS atenolol 50 mg tablet 50 mg PO DAILY sertraline 50 mg tablet 50 mg PO DAILY Xarelto 20 mg tablet 20 mg PO DAILY cephalexin 500 mg capsule 500 mg PO BID glipizide 5 mg tablet 5 mg PO DAILY metformin 500 mg tablet 500 mg PO BID donepezil 10 mg tablet 10 mg PO HS olanzapine 2.5 mg tablet 2.5 - 5 mg PO HS Discharge Orders: Discharge Order (Routine); Ordered 04/28/25 Ordered By: Josee Jc Patient Education: COVID-19 (Coronavirus Disease 2019) (DC) Additional Instructions: Home to rest. Activity as tolerated. Encourage electrolyte fluid replacement - powerade, Gatorade, etc. Outpatient follow-up with PCP to recheck BMP. Activity Level: Activity as Tolerated Discharge Diet: Diabetic Follow Up Appointments: Paloma Escobedo DO [Primary Care Provider, [facility]] Referral Note: Recheck BMP, post hospital follow-up 7-10 days (currently has COVID) Forms: [facility], [facility] Instructions
--- NOTE | 2025-04-28 13:26 | PC.NURSE ---
Discharge - Pt alert, oriented to self. Disoriented to situation and time, pleasant and re-directable. Up with standby assistance and walker/gait belt. Denies SOB, n/v, pain. Tolerating RA diet and fluids. Pt reports feeling better and family at bedside agrees with pt statement. IV removed with catheter intact. D/C education provided to family member who is real time operator healthcare liaison. rail transportation operator and pt verbalized understanding with education. Pt d/c to home via wheelchair at approximately 1306 with family member..
== END 2025-04-28 13:06 | disposition home or self-care (01) | DRG 177 ==
LOC: ED 22:47 → MEDSURG 22:53
PROVIDERS: Admitting Provider Student in an Organized Health Care Education/Training Program; Emergency Provider Student in an Organized Health Care Education/Training Program; PCP Family Medicine; Visit Provider Student in an Organized Health Care Education/Training Program
DX: U07.1 COVID-19 (principal); G93.41 Metabolic encephalopathy; N17.9 Acute kidney failure, unspecified; I12.9 Hypertensive chronic kidney disease with stage 1 through stage 4 chronic kidney disease, or unspecified chronic kidney disease; E11.22 Type 2 diabetes mellitus with diabetic chronic kidney disease; N18.9 Chronic kidney disease, unspecified; Z79.84 Long term (current) use of oral hypoglycemic drugs; F03.90 Unspecified dementia, unspecified severity, without behavioral disturbance, psychotic disturbance, mood disturbance, and anxiety; Z86.711 Personal history of pulmonary embolism; Z79.01 Long term (current) use of anticoagulants; I25.2 Old myocardial infarction; E78.5 Hyperlipidemia, unspecified
CPT/HCPCS: 36415; 71250; 80048; 80053; 81001; 82962; 83735; 84484; 85025; 85027; 87086; 87637; 93005; 97161; 97165; 97535; 99284; 99285; A9270; J7030

== ENCOUNTER 2025-08-07 13:23 | Emergency (ER) | payer MEDICARE, OTHER, SELFPAY ==
[2025-08-07 13:30] VITALS: BP 145/57; PULSE 56; RESP 16; TEMP 36.3; O2SAT 95
--- OUTSIDE RECORDS SUMMARY | 2025-08-07 13:30 | XMS_ITS | Clinical Summary ---
Author Organization [employer] [facility] Address [address] [place] [address] Care Team Providers Care Chief Librarian Extension Department Name Role Phone JavadtPaloma Primary Care Provider [phone] Flower Viveros MD Unavailable [phone] Allergies Active AllergyReactionsCriticalityNoted QsjeJjuvgwlwObivxvrjsrkJeyj07/04/2009 LisinoprilRenal Nazmquh4706/30/2014 Medications MedicationSigDispense QuantityRefillsLast FilledStart DateEnd DateStatus Calcium-Cholecalciferol, D3, (CALCIUM 500+D) 500 mg(1,250mg) -400 unit Chew 1 by mouth twice daily 180 ctive MEDICAL SUPPLY, MISCELLANEOUS (GRADUATED COMPRESSION STOCKINGS) Indications:Varicose veins of legsFor personal use. Length: calf Strength: 16-20 mmHg 2 Packet Active blood sugar diagnostic (Ascensia CONTOUR) strip Indications:Diabetes mellitus without complication (HC)USE 1 STRIP TO CHECK GLUCOSE ONCE DAILY 100 Each ctive artificial tears, peg 400 0.4%-propylene glycol 0.3%, (SYSTANE) ophthalmic Place 1-2 Drops into both eyes 2 times daily if needed for Dry Eyes.Active nystatin (MYCOSTATIN) topical cream Indications:Yeast dermatitisApply topically to affected area(s) 2 times daily if needed (Skin rash/irritation). 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 90 Tablet 5Active atenoloL (TENORMIN) 50 mg tablet Indications:Essential hypertensionTake 1 Tablet (50 mg) by mouth once daily. 90 Tablet 5Active amLODIPine (NORVASC) 5 mg tablet Indications:Essential hypertensionTake 1 Tablet (5 mg) by mouth once daily. 90 Tablet 5Active sertraline (ZOLOFT) 50 mg tablet Indications:Current mild episode of major depressive disorder without prior episodeTake 1 Tablet (50 mg) by mouth once daily in the morning. 90 Tablet 5Active donepeziL (ARICEPT) 10 mg tablet Indications:Moderate cognitive impairmentTake 1 Tablet (10 mg) by mouth at bedtime. 90 Tablet 5Active lovastatin 20 mg tablet Indications:Hyperlipidemia with target LDL less than 100TAKE 1 TABLET(20 MG) BY MOUTH AT BEDTIME 90 Tablet 5Active OLANzapine (ZYPREXA) 5 mg tablet Indications:Skin-picking disorderTake 1 Tablet (5 mg) by mouth at bedtime. 90 Tablet 5Active desonide (TRIDESILON) 0.05 % cream Indications:Skin-picking disorderApply topically to affected area(s) two times daily. 60 g 5Active furosemide (LASIX) 40 mg tablet Indications:Hyperkalemia,HypertensionTake one a day only when you have swelling 90 Tablet 5Active desonide 0.05 % lotion Indications:Skin-picking disorderApply topically to affected area(s) two times daily. 354 mL Discontinued(*Availability/Formulary change/Cost of medication) Active Problems ProblemNoted DateDiagnosed DateStage 4 chronic kidney wqcghjb4005/15/2025hronic saddle pulmonary embolism with acute cor ynudygfbi81/20/2024 Assessment & Plan (09/09/2023 9:14 AM GROUP THERAPY COUNSELOR): chart update only. historical at this time. NSTEMI (non-ST elevated myocardial infarction)07/06/2023ementia in Alzheimer's qzyafru3804/02/2023Mild nonproliferative diabetic retinopathy of both eyes without macular edema associated with type 2 diabetes tkhkryly76/19/2022 Assessment & Plan (09/09/2023 9:14 AM GROUP THERAPY COUNSELOR): chart up date only today. Assessment & Plan (10/28/2022 9:39 AM GROUP THERAPY COUNSELOR): chart update only. Paloma Escobedo D.O. 10/28/2022 9:39 AM Type II or unspecified type diabetes mellitus without mention of complication, not stated as vtljmcyneggf71/30/2018CKD (chronic kidney disease) stage 3, GFR 30-59 ml/min02/16/2017 Assessment & Plan (09/09/2023 9:14 AM GROUP THERAPY COUNSELOR): chart update only. Paloma Alcala.O. 09/09/2023 9:14 AM Assessment & Plan (10/28/2022 9:39 AM GROUP THERAPY COUNSELOR): chart update only.Paloma Escobedo D.O. 10/28/2022 9:38 AM Gdugvlffoi61/20/2015CRI (chronic renal insufficiency)05/16/2014 Overview (05/16/2014): Better off lisinopril. Needs recheck labs 06/2014. Milly Salinas MD .................... 9/26/23935:00 PM Mammary duct yqmgtrb9409/16/2010Hyperlipidemia LDL goal < 55584HTN (hypertension)07/11/2008 Overview (11/03/2009): Updated by system to replace inactive record Hernia of unspecified site of abdominal cavity without mention of obstruction or gangrene Resolved Problems ProblemNoted DateDiagnosed DateResolved DateDiabetic tnemfeewwar35/02/2013 11/14/2018Type II or unspecified type diabetes mellitus without mention of complication, not stated as hnwjqlnuyhnd72/27/2019 Encounters DateTypeDepartmentCare VewmZxfxiwnejgk16/18/2025Nurse Triage [address] [address] Paloma Escobedo DO Cbgnnfp7008/04/2025 1:00 PM CSTAncillary Procedure [address] [address] Dbzwhwh5308/04/20253478Txztnw62/11/2025[place] [facility] [place] [address] [place] [address] Flower Viveros MD PLAN OF CARE07/30/2025 3:30 PM CSTOffice Visit [facility] [place] [address] [place] [address] Flower Viveros MD Riepzjr8007/30/20253124Xeccge74/18/2025Orders Only [address] [address] Paloma Escobedo DO <No scans attached>07/07/2025Telephone [address] [address] Paloma Escobedo DO Prior Authorization (desonide 0.05 % lotion (DENIED))07/04/2025 11:05 AM GROUP THERAPY COUNSELOR Office Visit [facility] [address] [place] [address] Paloma Escobedo DO Medicare ANNUAL (subsequent) Visit (84 yr/felt shaky and pale yesterday); Ear Problem (sore on right ear); Urinary Problem (bladder incontinence in the mornings); Eye Problem (pupils have been smaller lately); Derm Problem (very itchy- picking at scabs/)07/04/20251788Kyytyn94/24/2025 9:25 AM CDTOffice Visit [facility] [address] [facility] [place] [address] Paloma Escobedo, Hospital F/U; Medication Management (olanzapine-meds for picking- not working); Ankle Pain/problem (right ankle swollen last couple days)05/14/2025Travel 05/08/2025Home Care Visit [facility] [address] [place] [address] Lukasz Ferrell, CAMP COORDINATOR CAMP COORDINATOR - DISCIPLINE DISCHARGEfrom Last 3 Months Immunizations ImmunizationAdministration DatesNext DueCOVID-19 vaccine (SMS [employer] 30mcg/0.3mL) PF, MDV11/07/2020,10/17/2020Influenza A (H1N1), Inactivated 09/02/2009Influenza, High-dose Xgybdqcknbs27/26/2016,06/26/2015,06/21/2014 Influenza, IIV3 (Age >=3 years)05/12/2013,05/18/2012,05/24/2010,06/24/2009, 06/23/2008,06/06/2007Influenza, Inactivated AIIV4 (Age 65+ Years) Preserv Free 05/01/2023,04/27/2022,06/29/2020Influenza, Inactivated IIV3 (Age 65+ Years) Preserv Free07/04/2025,05/28/2024,05/17/2019,07/20/2018,05/26/2017Pneumococcal Poly,23-Valent (Pneumovax)04/19/2006Pneumococcal conj 13-Valent (Prevnar 13) 08/24/2016RSV, Bivalent Vaccine Reconstituted (Abrysvo 120MCG/0.5mL)06/07/2024Td (Age >=7 Years)10/15/2002Tdap108/26/2014 Family History Medical HistoryRelationNameCommentsOtherBrother 2brain tumorDiabetesDaughter DiabetesMotherOtherSister 2cystic fibrosisCancer-breastNo Family HistoryRelation NameStatusCommentsBrother 1DeceasedBrother 2DaughterFatherDeceasedMotherDeceased Sister 1DeceasedSister 2 Social History Tobacco UseTypesPacks/DayYears UsedDateSmoking Tobacco: TnowuwDihdzrvbay9Vusy: 08/21/1964Smokeless Tobacco: Never Tobacco Cessation:Counseling Given: Yes Alcohol UseStandard Drinks/WeekCommentsNo0 (1 standard drink = 0.6 oz pure alcohol)PHQ-2AnswerDate RecordedPHQ-2 TOTAL UUVNA36709/03/2024Social Connections AnswerDate RecordedDo you often feel lonely or isolated from those around you?0 07/19/2024lcohol UseAnswerDate RecordedHow often do you have a drink containing alcohol?How many drinks containing alcohol do you have on a typical day when you are drinking?How often do you have five or more drinks on one occasion?Financial Resource StrainAnswerDate Recorded Difficulty of Paying Living Qfywetzt157/29/2024ifficulty of Paying Living ExpensesNot on file07/19/2024Food InsecurityAnswerDate RecordedDo you worry your food will run out before you are able to buy more?Transportation NeedsAnswerDate RecordedDoes lack of transportation keep you from medical appointments?oes lack of transportation keep you from work, meetings or getting things that you need?Housing StabilityAnswerDate Recorded What is your housing situation today?Interpersonal SafetyAnswerDate RecordedAre you being hit, kicked, pushed or yelled at (see row info)?No 02/22/2024Interpersonal Safety Abuse 12 - 18Not on file02/22/2024Interpersonal Safety Ambulatory VulnerabilityNot on file02/22/2024UtilitiesAnswerDate Recorded Do you have trouble paying for utilities (for example, heat, electricity, water, phone)?4CommentsNoSex and Gender InformationValueDate Recorded Sex Assigned at BirthNot on fileLegal SunXidfmv48/14/2013 5:23 AM CSTGender IdentityNot on fileSexual OrientationNot on fileOccupationIndustryJob Start Date Job End Datewoolronald smtyh (retired)Not on fileNot on fileNot on file Obstetrics History GravidaParaTermPretermABIABSABEctopicMultipleLivingLive Nhhacq7230LdorOumhbvtBF Total LaborLabor/2nd/4jrEeztijZfoLhifIenbPUMVmpN9L2KmrbTiwdYpzlGzyrIvbyZffz Last Filed Vital Signs Vital SignReadingTime TakenCommentsBlood Wthnstuk028/7807/30/2025 3:15 PM GROUP THERAPY COUNSELOR Kgvdp427607/30/2025 3:15 PM YFADlmuhwapytv35.5 ??C (97.7 ??F)07/04/2025 11:23 AM CSTRespiratory Fvfk116805/07/2025 9:27 AM CDTOxygen Rxaeyzooet21%07/04/2025 11:23 AM CSTInhaled Oxygen Concentration--Kivawu54.6 kg (184 lb 3.2 oz)07/04/2025 11:23 AM ONPXwtklf238.8 cm (5' 4.49)07/04/2025 11:23 AM CSTBody Mass Index31.14 07/04/2025 11:23 AM GROUP THERAPY COUNSELOR Plan of Treatment DateTypeDepartmentCare Team (Latest Contact Info)Cqnhmcndqup32/07/2026 11:30 AM CSTOrders Only [facility] [address] [place] [address] [place], [place] 08/29/2025 11:15 AM CSTOffice Visit [facility] [place] [address] [place] [address] [place] [address] [place] [address] 10/31/2025 10:15 AM CDTOffice Visit [facility] [address] [place] [address] Paloma Escobedo DO [address] [place] [address] Health MaintenanceDue DateLast DoneCommentsZoster (shingles) series for age 50+ (1 of 2)1990COVID-19 vaccine series ( season)2025 11/07/2020, 10/17/2020Tetanus dububnk16, 08/08/2008, 10/15/2002BMI (ht and wt on same day) for age 18+, 05/31/2024, 05/01/2023, Additional history existsDepression screening for age 12+, 05/31/2024, 05/31/2024, Additional history exists Medicare Wellness for age 65+, 05/31/2024, 05/01/2023, Additional history existsPneumococcal series for age 50+Gufxmmkdx28/04/2017, 04/19/2006DEXA/DXA scan for age 65+Wihlaysbo72/28/2019, 07/21/2009RSV vaccine for adults or pyckrnptlSjzslxxkf87/18/2024Influenza OwolwgvXmupothuy61/14/2025, 05/28/2024, 05/01/2023, Additional history existsHepatitis B series for 19+Aged OutNo longer eligible based on patient's age to complete this topic Goals GoalPatient Goal TypeAssociated ProblemsRecent ProgressPatient-Stated?Author BLOOD PRESSURE - MAINTAINS BP less than 140/90 Blood PressureLaurita Cook MD Procedures Procedure NamePriorityDate/TimeAssociated DiagnosisCommentsUS RENAL AND BLADDER UUHUJTHUHXYU32/15/2025 1:31 PM GROUP THERAPY COUNSELOR EUGENIA (acute kidney injury) CKD (chronic kidney disease) stage 4, GFR 15-29 ml/min () PROTEIN ELP SERUM W CWZPPKYfghdma80/10/2025 4:34 PM GROUP THERAPY COUNSELOR EUGENIA (acute kidney injury) CKD (chronic kidney disease) stage 4, GFR 15-29 ml/min (HC) RENAL FUNCTION FTJTNHtyubax77/10/2025 4:34 PM GROUP THERAPY COUNSELOR EUGENIA (acute kidney injury) CKD (chronic kidney disease) stage 4, GFR 15-29 ml/min (HC) CBC WITH AUTO QNRLOWLOVBGMRemgnit69/14/2025 12:44 PM GROUP THERAPY COUNSELOR Stage 3 chronic kidney disease, unspecified whether stage 3a or 3b CKD (HC) TSH WITH ZMNHHUTruzwzu44/14/2025 12:44 PM GROUP THERAPY COUNSELOR Other fatigue BASIC METABOLIC CFKKIDopsipm51/14/2025 12:44 PM GROUP THERAPY COUNSELOR Stage 3 chronic kidney disease, unspecified whether stage 3a or 3b CKD (HC) OPKALAYPZnwwciq98/14/2025 12:44 PM GROUP THERAPY COUNSELOR Stage 3 chronic kidney disease, unspecified whether stage 3a or 3b CKD (HC) CBC WITH AUTO VFVQZQDZENOOYjqrbau64/14/2025 12:44 PM GROUP THERAPY COUNSELOR Stage 3 chronic kidney disease, unspecified whether stage 3a or 3b CKD (HC) HEMOGLOBIN A1C MONITORING (POCT)Rlsdzmp9405/14/2025 10:20 AM CDT Diabetes mellitus without complication (HC) BASIC METABOLIC GQQDHEzkmsxo97/24/2025 10:20 AM CDT Diabetes mellitus without complication (HC) XR DXA BONE DENSITY 2 SITES YMGJTQbqwydo54/28/2019 11:36 AM CDT Post-menopausal from Last 3 Months or Most Recently Relevant to Health Maintenance Results * US RENAL AND BLADDER COMPLETE (08/04/2025 1:31 PM GROUP THERAPY COUNSELOR)Anatomical Region LateralityModalityAbdomen, AORTA, KIDNEYSUltrasoundSpecimen (Source)Anatomical Location / LateralityCollection Method / VolumeCollection TimeReceived Time 08/04/2025 2:24 PM GROUP THERAPY COUNSELOR Impressions 08/04/2025 2:24 PM GROUP THERAPY COUNSELOR Renal cortical thinning. No hydronephrosis. Dictated by Zafar Deshpande MD @ 08/04/2025 2:24:49 PM (Electronically Signed) Narrative 08/04/2025 2:24 PM GROUP THERAPY COUNSELOR For Patients: As a result of the Cures Act, medical imaging exams and procedure reports are released immediately into your electronic medical record. You may view this report before your referring provider. If you have questions, please contact your health care provider. CLINICAL HISTORY: CKD (chronic kidney disease) stage 4, GFR 15-29 ml/min COMPARISON: none TECHNIQUE: Alcantara scale and color Doppler images were acquired of the kidneys and urinary bladder. FINDINGS: Sonographic images reveal a symmetric appearance of the kidneys. There is no evidence of hydronephrosis, mass or calculus. The right kidney measures 9.2cm in length and the left kidney measures 10.2cm in length. The renal cortex measures 8 millimeters on the right and 11 millimeters on the left. The urinary bladder appears normal. Color Doppler images reveal a normal appearance of both ureteral jets. There is no evidence of bladder calculi or diverticula. Prevoid bladder volume 373 cc. Postvoid bladder volume 5 cc. Procedure Note Zafar Deshpadne MD - 08/04/2025 For Patients: As a result of the Cures Act, medical imagingexams and procedure reports are released immediately into your electronicmedical record. You may view this report before your referring provider.If you have questions, please contact your health care provider. CLINICAL HISTORY: CKD (chronic kidney disease) stage 4, GFR 15-29 ml/min COMPARISON: none TECHNIQUE: Alcantara scale and color Doppler images were acquired of the kidneys andurinary bladder. FINDINGS: Sonographic images reveal a symmetric appearance of the kidneys. There isno evidence of hydronephrosis, mass or calculus. The right kidney measures9.2cm in length and the left kidney measures 10.2cm in length. The renalcortex measures 8 millimeters on the right and 11 millimeters on the left. The urinary bladder appears normal. Color Doppler images reveal a normal appearance of both ureteral jets. There is no evidence of bladder calculior diverticula. Prevoid bladder volume 373 cc. Postvoid bladder volume 5cc. IMPRESSION: Renal cortical thinning. No hydronephrosis. Dictated by Zafar Deshpande MD @ 08/04/2025 2:24:49 PM (Electronically Signed) Authorizing ProviderResult TypeResult StatusFlower Viveros MDUSFinal Result * PROTEIN ELP SERUM W REFLEX (07/30/2025 4:34 PM GROUP THERAPY COUNSELOR)ComponentValueRef RangeTest MethodAnalysis TimePerformed AtPathologist SignatureELP,ALBUMIN4.183.31 - 5.31 g/dL08/04/2025 2:40 PM CSTB[facility]-CENTRAL LABORATORYELP,ALPHA 10.370.19 - 0.42 g/dL08/04/2025 2:40 PM CST[facility]-CENTRAL LABORATORYELP,ALPHA 20.980.44 - 1.03 g/dL08/04/2025 2:40 PM CSTMETHODIST [facility]TRAL LABORATORYELP,GAMMA0.930.59 - 1.46 g/dL08/04/2025 2:40 PM CSTMETHODIST [facility]AL LABORATORYELP,BETA0.930.52 - 1.05 g/dL 08/04/2025 2:40 PM CSTH. [facility]. [facility]-CENTRAL LABORATORYELP INTERP,SERUMNormal electrophoretic pattern. No monoclonal protein detected. Interpreted and electronically signed by: Ciarra Wen MD 08/04/2025 2:40 PM [facility]-CENTRAL LABORATORYPROTEIN,TOTAL 7.46.0 - 8.0 g/dL08/04/2025 2:40 PM [facility]CENTRAL LABORATORYSpecimen (Source)Anatomical Location / LateralityCollection Method / VolumeCollection TimeReceived TimeBloodBLOOD SPECIMEN / UnknownNon-Lab Venipuncture / Smicyas5407/30/2025 4:34 PM CST07/30/2025 4:34 PM GROUP THERAPY COUNSELOR Narrative Authorizing ProviderResult TypeResult Armen Viveros MDCHEMISTRYFinal ResultPerforming OrganizationAddressCity/State/ZIP CodePhone Number [facility] [address] [place] [address], * (ABNORMAL) RENAL FUNCTION PANEL (07/30/2025 4:34 PM GROUP THERAPY COUNSELOR)ComponentValueRef RangeTest MethodAnalysis TimePerformed AtPathologist GlmbjezzvKDOQRM277557 - 146 mmol/L110/01/2024 5:57 AM CSTQUEST DIAGNOSTICSPOTASSIUM5.33.5 - 5.3 mmol/L 07/31/2025 5:57 AM CSTQUEST XKDXUOUUDJGGKHTGSZG87085 - 110 mmol/L110/01/2024 5:57 AM CSTQUEST DIAGNOSTICSCARBON ZCRGZLK6684 - 32 mmol/L110/01/2024 5:57 AM CSTQUEST IQEHMXNOAARVUOAKMJ824(H)65 - 99 mg/dL07/31/2025 5:57 AM CSTQUEST DIAGNOSTICSComment: ? Fasting reference interval For someone without known diabetes, a glucose value >125 mg/dL indicates that they may have diabetes and this should be confirmed with a follow-up test. CALCIUM9.88.6 - 10.4 mg/dL07/31/2025 5:57 AM CSTQUEST DIAGNOSTICSUREA NITROGEN (BUN)38(H)7 - 25 mg/dL07/31/2025 5:57 AM CSTQUEST DIAGNOSTICSCREATININE2.22(H) 0.60 - 0.95 mg/dL07/31/2025 5:57 AM CSTQUEST DIAGNOSTICSBUN/CREATININE MQLPC379 - 22 (calc)07/31/2025 5:57 AM CSTQUEST YQSBEHBKYOBLUWK97(L)> OR = 60 mL/min/1.90u07907/31/2025 5:57 AM CSTQUEST DIAGNOSTICSPHOSPHATE ( PHOSPHORUS)4.5 (H)2.1 - 4.3 mg/dL07/31/2025 5:57 AM CSTQUEST DIAGNOSTICSALBUMIN4.13.6 - 5.1 g/dL07/31/2025 5:57 AM CSTQUEST DIAGNOSTICSSpecimen (Source)Anatomical Location / LateralityCollection Method / VolumeCollection TimeReceived TimeBloodBLOOD SPECIMEN / UnknownNon-Lab Venipuncture / Nwlapai5107/30/2025 4:34 PM CST07/30/2025 4:34 PM GROUP THERAPY COUNSELOR Narrative Authorizing ProviderResult TypeResult StatusGurmcuong Viveros MDCHEMISTRYFinal ResultPerforming OrganizationAddressCity/State/ZIP CodePhone Number [facility] [address] [address], * CBC WITH AUTO DIFFERENTIAL (07/04/2025 12:44 PM GROUP THERAPY COUNSELOR)ComponentValueRef Range Test MethodAnalysis TimePerformed AtPathologist SignatureWHITE BLOOD CELL COUNT7.33.8 - 10.8 Thousand/uL07/05/2025 4:30 AM CSTQUEST DIAGNOSTICSRED BLOOD CELL COUNT4.153.80 - 5.10 Million/uL07/05/2025 4:30 AM [facility]ST[facility] SEXZIJZENH05.211.7 - 15.5 g/dL07/05/2025 4:30 AM [facility]ST[facility] WQRCVRSSZR32.435.0 - 45.0 %07/05/2025 4:30 AM CSTQUEST JRRYMEJBZBZRBE83.180.0 - 100.0 fL07/05/2025 4:30 AM CSTQUEST QUMAWZEJFJQBGT16.427.0 - 33.0 pg 07/05/2025 4:30 AM CSTQUEST PSXZKJCTRHOQHXD42.632.0 - 36.0 g/dL07/05/2025 4:30 AM CSTQUEST DIAGNOSTICSComment: For adults, a slight decrease in the calculated MCHC value (in the range of 30 to 32 g/dL) is most likely not clinically significant; however, it should be interpreted with caution in correlation with other red cell parameters and the patient's clinical condition. RDW13.111.0 - 15.0 %07/05/2025 4:30 AM CSTQUEST DIAGNOSTICSPLATELET VNNMO272886 - 400 Thousand/uL07/05/2025 4:30 AM CSTQUEST DWCTBTKWGGAXPU44.27.5 - 12.5 fL 07/05/2025 4:30 AM CSTQUEST DPKUALDKXMPSMZBUZNGKNG34.6%07/05/2025 4:30 AM GROUP THERAPY COUNSELOR [facility] EYZLNRQRNNDXJIMZIDXRDP29.8%07/05/2025 4:30 AM [facility] MONOCYTES5.8%07/05/2025 4:30 AM CSTQUEST DIAGNOSTICSEOSINOPHILS0.5%07/05/2025 4:30 AM CSTQUEST DIAGNOSTICSBASOPHILS0.3%07/05/2025 4:30 AM [facility] ABSOLUTE ZUJQELQVPYA13183919 - 7800 cells/uL07/05/2025 4:30 AM CSTQUEST DIAGNOSTICSABSOLUTE PCBJVBSMODA7459785 - 3900 cells/uL07/05/2025 4:30 AM GROUP THERAPY COUNSELOR [facility] PHUNKGLDC075860 - 950 cells/uL07/05/2025 4:30 AM GROUP THERAPY COUNSELOR [facility]AB[facility] QZVCAZLQBFS4662 - 500 cells/uL07/05/2025 4:30 AM GROUP THERAPY COUNSELOR [facility] YCRPMAWJU057 - 200 cells/uL07/05/2025 4:30 AM CSTQUEST DIAGNOSTICSSpecimen (Source)Anatomical Location / LateralityCollection Method / VolumeCollection TimeReceived TimeBloodBLOOD SPECIMEN / UnknownQuest Collect / Hifkumj9707/04/2025 12:44 PM CST07/04/2025 12:44 PM GROUP THERAPY COUNSELOR Narrative Authorizing ProviderResult TypeResult StatusTamara Kacey Detert DOHEMATOLOGYFinal ResultPerforming OrganizationAddressCity/State/ZIP CodePhone Number [facility] [address] [address], [place] [phone] * TSH WITH REFLEX (07/04/2025 12:44 PM GROUP THERAPY COUNSELOR)ComponentValueRef RangeTest Method Analysis TimePerformed AtPathologist SignatureTSH W/REFLEX TO FT40.940.40 - 4.50 mIU/L109/04/2024 4:42 AM CSTQUEST DIAGNOSTICSSpecimen (Source)Anatomical Location / LateralityCollection Method / VolumeCollection TimeReceived Time BloodBLOOD SPECIMEN / UnknownQuest Collect / Hfaxuhd4807/04/2025 12:44 PM GROUP THERAPY COUNSELOR 07/04/2025 12:44 PM GROUP THERAPY COUNSELOR Narrative Authorizing ProviderResult TypeResult StatusTamara Kacey Detert DOCHEMISTRYFinal ResultPerforming OrganizationAddressty/State/ZIP CodePhone Number [facility] [address] [address], [place] [phone] * FERRITIN (07/04/2025 12:44 PM GROUP THERAPY COUNSELOR)ComponentValueRef RangeTest MethodAnalysis TimePerformed AtPathologist DcklmiyxlFUGFWLIA3011 - 288 ng/mL07/05/2025 4:42 AM CSTQUEST DIAGNOSTICSSpecimen (Source)Anatomical Location / Laterality Collection Method / VolumeCollection TimeReceived TimeBloodBLOOD SPECIMEN / UnknownQuest Collect / Xcbyhpc4507/04/2025 12:44 PM CST07/04/2025 12:44 PM GROUP THERAPY COUNSELOR Narrative Authorizing ProviderResult TypeResult StatusTahaylie Erazo Fanny DOCHEMISTRYFinal ResultPerforming OrganizationAddressCity/State/ZIP CodePhone Number [facility] [address] [place] [address], * (ABNORMAL) BASIC METABOLIC PANEL (07/04/2025 12:44 PM GROUP THERAPY COUNSELOR) Only the most recent of2 resultswithin the time period is included. ComponentValueRef RangeTest MethodAnalysis TimePerformed AtPathologist Signature AZVHTR808575 - 146 mmol/L109/04/2024 6:13 AM CSTQUEST DIAGNOSTICSPOTASSIUM5.7(H) 3.5 - 5.3 mmol/L109/04/2024 6:13 AM CSTQUEST DIAGNOSTICSCARBON BFPHZSZ6956 - 32 mmol/L109/04/2024 6:13 AM CSTQUEST JLEYQTLMOQWULWCZXJ791(H)65 - 99 mg/dL 07/05/2025 6:13 AM CSTQUEST DIAGNOSTICSComment: ? Fasting reference interval For someone without known diabetes, a glucose value >125 mg/dL indicates that they may have diabetes and this should be confirmed with a follow-up test. CALCIUM9.98.6 - 10.4 mg/dL07/05/2025 6:13 AM CSTQUEST DIAGNOSTICSCREATININE2.33 (H)0.60 - 0.95 mg/dL07/05/2025 6:13 AM CSTQUEST DIAGNOSTICSBUN/CREATININE RATIO 196 - 22 (calc)07/05/2025 6:13 AM CSTQUEST FJBSLGCGGKYZXQW55(L)> OR = 60 mL/min/1.11p71307/05/2025 6:13 AM CSTQUEST DIAGNOSTICSUREA NITROGEN (BUN)44(H)7 - 25 mg/dL07/05/2025 6:13 AM CSTQUEST DIAGNOSTICSELECTROLYTE NIILVKV97 - 17 mmol/L (calc)07/05/2025 6:13 AM CSTQUEST RIZFOTURNASEYRMATIN22521 - 110 mmol/L 07/05/2025 6:13 AM CSTQUEST DIAGNOSTICSSpecimen (Source)Anatomical Location / LateralityCollection Method / VolumeCollection TimeReceived TimeBloodBLOOD SPECIMEN / UnknownQuest Collect / Afumvwj7907/04/2025 12:44 PM CST07/04/2025 12:44 PM GROUP THERAPY COUNSELOR Narrative Authorizing ProviderResult TypeResult StatusTamara Kacey Detert DOCHEMISTRYFinal ResultPerforming OrganizationAddressCity/State/ZIP CodePhone Number [employer] [address] [phone], * (ABNORMAL) HEMOGLOBIN A1C MONITORING (POCT) (05/14/2025 10:20 AM CDT)Component ValueRef RangeTest MethodAnalysis TimePerformed AtPathologist SignaturePOC HEMOGLOBIN A1C6.9(H)<6.0 % OF TOTAL HGB05/14/2025 10:[address] [facility]: Any point of care results exhibiting inconsistency with the patient's clinical status should be repeated using a different testing method. Specimen (Source)Anatomical Location / LateralityCollection Method / Volume Collection TimeReceived TimeBloodBLOOD SPECIMEN / UnknownQuest Collect / Unknown 05/14/2025 10:20 AM CDT05/14/2025 10:20 AM CDT Narrative Authorizing ProviderResult TypeResult StatusTamara Kacey Detert DOCHEMISTRYFinal ResultPerforming OrganizationAddressCity/State/ZIP CodePhone Number [employer] [address] [address], [place] [phone] [facility] [address] [place] [address], [place] [phone] * (ABNORMAL) XR DXA BONE DENSITY 2 SITES AXIAL (11/15/2018 11:36 AM CDT) Anatomical RegionLateralityModalitySpine, HIPS, HIPL, HIPROtherSpecimen (Source)Anatomical Location / LateralityCollection Method / VolumeCollection TimeReceived Time Narrative 12/05/2018 10:55 AM CDT Please see scanned document for results of this study. Authorizing ProviderResult TypeResult StatusTamara Kacey Detert DODEXAFinal Result from Last 3 Months or Most Recently Relevant to Health Maintenance Additional Health Concerns InfectionOnset DateLast MaskjgpimSHTV93 Insurance * Guarantor: Meli Whalen TypeRelation to PatientDate of PhoneBilling AddressPersonal/YfydgfMevu1940 [id number] [place] [id number] * Guarantor: Meli Whalen TypeRelation to PatientDate of PhoneBilling AddressC[facility]/IkcczeTmub1940 [id number] [place] [phone] Advance Directives TypeDate RecordedPatient RepresentativeExplanationPOLST9/6/2024Healthcare Directive04/02/2024 1:46 PMsigned 03/31/24 * Full Code (Latest Code Status on File) Date ActivatedDate XnkfujmbsqvCtmagunz54/16/2023 9:38 PM07/09/2023 9:16 PM QuestionAnswerCommentsCode Status Discussion:* Other Care Teams Team MemberRelationshipSpecialtyStart DateEnd Date Paloma Escobedo DO [address] [place] [address] PCP - GeneralFamily Practice04/20/15 [place] [address] [place] [address] CvvtwfldcpRxwdcazlam98/10/25
[2025-08-07 13:43] LABS: Glucose, Point-of-Care* 241 mg/dl (60-115)
--- NOTE | 2025-08-07 14:00 | CRLHL7_ITS ---
For Patients: As a result of the Century Cures Act, medical imaging exams and procedure reports are released immediately into your electronic medical record. You may view this report before your referring provider. If you have questions, please contact your health care provider. Indication: Change in mentation Technique: Volumetric multidetector CT images of the head were obtained without the administration of low osmolar intravenous contrast. Comparison: CT head January 15, 2025 Findings: There is no intra-axial or extra-axial fluid collection. There is no mass effect or midline shift. There is age-related cortical atrophy with mild sulcal widening and ex vacuo dilatation of the lateral ventricles. Arachnoid cystic changes of the right greater than left middle cranial fossa are again appreciated. There are chronic small vessel disease changes in the subcortical and periventricular white matter without lost jarquin-white differentiation. The orbits and their contents are grossly within normal limits. The bony calvarium is grossly intact. The paranasal sinuses are clear. The mastoid air cells are well aerated. Impression: Age-related and chronic small-vessel disease changes of the brain similar to previous exam without new acute intracranial abnormality. Please note that all CT scans at this facility use dose modulation, iterative reconstruction, and/or weight-based dosing when appropriate to reduce radiation dose to as low as reasonably achievable. Dictated by Joshua Novak MD @ 08/07/2025 3:11:45 PM (Electronically Signed)
--- NOTE | 2025-08-07 14:01 | CRLHL7_ITS ---
For Patients: As a result of the Century Cures Act, medical imaging exams and procedure reports are released immediately into your electronic medical record. You may view this report before your referring provider. If you have questions, please contact your health care provider. INDICATION: CHANGE IN MENTATION TECHNIQUE: Chest 2 views COMPARISON: CT 04/27/2025 FINDINGS: Linear subsegmental scarring bilaterally. No acute infiltrate. No effusion or edema. No fracture. Stable mediastinum. IMPRESSION: No acute findings. Dictated by Zafar Deshpande MD @ 08/07/2025 3:04:47 PM (Electronically Signed)
--- NOTE | 2025-08-07 14:24 | ED.GENADULT ---
HPI - General Adult General Date Seen: 08/07/25 Chief complaint: Hypertension Stated complaint: high blood pressure Time Seen by Provider: 08/07/25 13:30 Source: patient Mode of arrival: ambulatory Limitations: no limitations History of Present Illness HPI narrative: Patient is an 85-year-old female see the history of dementia, hyperlipidemia, hypertension, diabetes, stage 4 chronic kidney disease presenting to the emergency department for weakness. Per the daughter the patient was acting her normal self yesterday. Today so her daughter states the patient is lot more tired and not as talkative as she usually is. She states the patient has been walking around without issue which she is concerned there is something else wrong as the patient seems less active. Patient denies any pain at this time. She states she does not know why she is here but is able to tell me where she is. She denies weakness. Denies dysuria, chest pain, shortness of breath, headache, lightheadedness, dizziness, vision changes. Her daughter is also concerned though that the patient's blood pressure has been more elevated. Patient's use of blood pressure of 120 systolic but has been in the 150s today. Her blood sugar was also almost 300 and the states the patient is usually in the mid 100s. Was taken off metformin 1 month ago due to kidney disease. Related Data Home Medications ?Medication ?Instructions ?Recorded ?Confirmed amlodipine 5 mg tablet 5 mg PO DAILY 07/24/23 08/07/25 atenolol 50 mg tablet 50 mg PO DAILY 07/24/23 08/07/25 lovastatin 20 mg tablet 20 mg PO HS 07/24/23 08/07/25 rivaroxaban 20 mg tablet (Xarelto) 20 mg PO DAILY 12/23/23 08/07/25 sertraline 50 mg tablet 50 mg PO DAILY 12/23/23 08/07/25 cephalexin 500 mg capsule 500 mg PO BID 04/27/25 04/27/25 donepezil 10 mg tablet 10 mg PO HS 04/28/25 08/07/25 glipizide 5 mg tablet 5 mg PO DAILY 04/28/25 08/07/25 olanzapine 2.5 mg tablet 2.5 - 5 mg PO HS 04/28/25 04/28/25 furosemide 40 mg tablet 40 mg PO DAILY 08/07/25 08/07/25 glyburide 2.5 mg tablet 2.5 mg PO DAILY 08/07/25 08/07/25 olanzapine 5 mg tablet 5 mg PO QPM 08/07/25 08/07/25 Previous Rx's ?Medication ?Instructions ?Recorded fosfomycin tromethamine 3 gram 3 g PO ONCE 1 dose #1 ea 08/07/25 oral packet Allergies Allergy/AdvReac Type Severity Reaction Status Date / Time amoxicillin Allergy Mild Rash Verified 01/15/25 17:46 lisinopril Allergy Mild kidney Verified 01/15/25 17:46 problems Review of Systems Status of ROS: Reports: 10 or more systems reviewed and unremarkable except as noted in History and below [facility] Medical History History of pulmonary embolism ?Z86.711 - Personal history of pulmonary embolism (ICD-10) Chronic anticoagulation ?Z79.01 - long-term (current) use of anticoagulants (ICD-10) Diabetes ?E11.9 - Type 2 diabetes mellitus without complications (ICD-10) CKD (chronic kidney disease) ?N18.9 - Chronic kidney disease, unspecified (ICD-10) Diabetes mellitus ?E11.9 - Type 2 diabetes mellitus without complications (ICD-10) Hyperlipidemia ?E78.5 - Hyperlipidemia, unspecified (ICD-10) NSTEMI (non-ST elevated myocardial infarction) ?I21.4 - Non-ST elevation (NSTEMI) myocardial infarction (ICD-10) Hypertension ?I10 - Essential (primary) hypertension (ICD-10) Surgical History History of hip surgery (08/24/10) ?Z98.890 - Other specified postprocedural states (ICD-10) History of breast biopsy (10/07/10) ?Z98.890 - Other specified postprocedural states (ICD-10) History of arthroscopy of left knee (07/02/15) ?Z98.890 - Other specified postprocedural states (ICD-10) H/O reduction of closed fracture (12/24/23) ?Z87.81 - Personal history of (healed) traumatic fracture (ICD-10) Social History What is your current living situation?: I presently have a place to live Problems where you live: no known problems Problems where you live details: no known problems In the past 12 months, utilities in danger of being shut off: no In past 12 months, lack of transportation kept you from medical appts, meetings, work, or getting things needed for daily living: no In the past 12 mos, have been you worried that your food would run out before you had money to buy more?: never true In the past 12 mos, the food you bought just didn't last and you didn't have money to buy more?: never true Highest level of school completed/degree received: 12th grade, no diploma Smoking Status: Never smoker Second hand tobacco smoke exposure: No How often do you have a drink containing alcohol: never AUDIT-C Alcohol total score: 0 Non-prescribed substance use: denies use Caffeine: Yes (Coffee) How often does anyone, including family, friends and others, physically hurt you: never How often does anyone, including family, friends and others, insult or talk down to you: never How often does anyone, including family, friends and others, threaten you with harm: never How often does anyone, including family, friends and others, scream or curse at you: never service: No Exam Narrative: Exam Narrative: Const: Well-nourished, Well-developed, in mild distress Eyes: PERRL, no conjunctival injection, and symmetrical lids HENT: Atraumatic external nose and ears. Moist mucous membranes. Neck: Symmetric, trachea midline, No thyromegaly. CVS: RRR, No murmurs or gallops. Peripheral pulses 2+ and equal in all extremities RESP: Unlabored respiratory effort. Clear to auscultation bilaterally. GI: Nontender/Nondistended, No rebound or guarding. MSK:Extremities w/o deformity, Normal Active ROM Skin: Warm, Dry. No rashes or lesions. Neuro: Normal Muscle tone, No focal neurological deficits. Psych: Awake, Alert, & Oriented x3. Appropriate mood and affect. Const: Vital Signs, click to edit/add: Vital Signs - 24 hr 08/07/25 13:30 08/07/25 15:35 08/07/25 17:20 Temperature 97.3 F L 97.5 F L Pulse Rate 52 L Pulse Rate [Pulse Oximeter] 56 L 56 L Respiratory Rate 16 17 18 Blood Pressure 155/68 H Blood Pressure [Le ft Upper Arm] 145/57 H 144/64 H Pulse Oximetry 95 95 95 Oxygen Delivery Me thod Room Air Room Air Course Vital Signs Vital signs: Initial Vital Signs Temperature 97.3 F L 08/07/25 13:30 Temperature Source Temporal Artery Scan 08/07/25 13:30 Pulse Rate 56 L 08/07/25 13:30 Respiratory Rate 16 08/07/25 13:30 Blood Pressure 145/57 H 08/07/25 13:30 Blood Pressure Mean 86 08/07/25 13:30 Blood Pressure Position Supine 08/07/25 13:30 Pulse Oximetry 95 08/07/25 13:30 Oxygen Delivery Method Room Air 08/07/25 13:30 Vital Signs Temperature 97.3 F L 08/07/25 13:30 Pulse Rate 56 L 08/07/25 13:30 Respiratory Rate 16 08/07/25 13:30 Blood Pressure 145/57 H 08/07/25 13:30 Pulse Oximetry 95 08/07/25 13:30 Oxygen Delivery Method Room Air 08/07/25 13:30 Temperature 97.5 F L 08/07/25 17:20 Pulse Rate 56 L 08/07/25 17:20 Respiratory Rate 18 08/07/25 17:20 Blood Pressure 144/64 H 08/07/25 17:20 Pulse Oximetry 95 08/07/25 17:20 Oxygen Delivery Method Room Air 08/07/25 17:20 Medications Administered Medications: Discontinued Medications Generic Name Dose Route Start Last Admin Trade Name Freq PRN Reason Stop Dose Admin Lactated Ringer's 1,000 mls @ 1,000 mls/hr 08/07/25 17:35 08/07/25 18:29 Lactated Ringers 1000 Ml IV 08/07/25 18:34 Infused .Q1H ONE Infusion Ceftriaxone Sodium 1 gm/ 100 mls @ 200 mls/hr 08/07/25 17:45 08/07/25 19:05 Sodium Chloride IVPB 08/07/25 18:14 Infused ONCE ONE Infusion Medical Decision Making MDM Narrative Medical decision making narrative: The patient is an 85-year-old female presenting to the emergency department for weakness. The differential diagnosis of generalized weakness is broad and includes infection, electrolyte abnormalities, ACS, arrhythmia, hypoglycemia, electrolyte abnormality, respiratory failure, anemia, hypothyroidism, dehydration, medication induced etc. order urinalysis look for signs of UTI. Will order CBC,, CMP, viral swabs, EKG, troponin, magnesium. Point of care blood sugar was 241. CBC shows no acute concerning abnormalities. CMP shows creatinine of 2.6. This is roughly around her baseline. She has known worsening kidney disease. EKG interpreted by myself shows no acute concerning abnormalities. Chest x-ray shows no acute concerning abnormalities as interpreted by myself and the radiologist. CT scan of the head of also shows no acute concerning abnormalities as reviewed by myself and the radiologist. Urinalysis does show signs of a UTI. She has no previous urinalysis here in [place] but did review her previous urinalysis through [facility] on 04/22/2025. At that time the only medicine that works for her due to her resistance is and kidney function and could be outpatient was fosfomycin. She was initially discharged on Keflex but after that was given a dose of fosfomycin. Family states at that time she was having the same symptoms as she is today. They states symptoms improved. I did speak to daughter about admission versus discharge. They would like to stay a the patient meets inpatient criteria but does not want to if she would be under observation. I spoke to the hospitalist on-call who states she does not meet inpatient criteria. Due to this patient daughter would like to go home. I cannot say for certain this is the same infection but I will treat it as it is and will order dose of fosfomycin. We do not have any in stock and we will have to send it to her pharmacy for tomorrow. In the meantime though it I do think he would still be useful to treat her with Keflex and also Rocephin just in case this is a different infection. Will also give her L fluids prior to discharge as she has not been drinking much today. On my review vital signs are stable throughout time in in the emergency department. Oximetry stayed in the mid to high 90s. security monitor showed no concerning arrhythmias. Family is agreeable to this plan. Keflex will be sent to [facility]. Lab Data Labs: Lab Results 08/07/25 08/07/25 08/07/25 Range/Units 13:42 14:00 14:16 WBC 5.61 (4.50-11.00) K/uL RBC 4.14 (4.00-5.20) m/uL Hgb 12.1 (12.0-16.0) gm/dL Hct 37.5 (33.0-51.0) % MCV 91 (80-100) fL MCH 29 (26-34) pg MCHC 32 (32-36) gm/dL RDW Coeff of Igovanni 13.0 (11.5-15.5) % Plt Count 195 (140-440) K/uL Neut % (Auto) 70.7 (42.0-72.0) % Lymph % (Auto) 20.7 (20-44) % Jerauld % (Auto) 7.5 (0.0-11.0) % Eos % (Auto) 0.7 (0.0-7.0) % Baso % (Auto) 0.2 (0.0-3.0) % Neut # (Auto) 3.97 (1.7-7.0) K/uL Lymph # (Auto) 1.16 (0.90-2.90) K/uL Jerauld # (Auto) 0.40 (0.00-0.90) K/UL Eos # (Auto) 0.04 (0.00-0.50) K/uL Baso # (Auto) 0.01 (0.00-0.30) K/uL Abs Immat Gran (auto) 0.01 (0.00-0.30) K/uL Imm/Tot Granulo (auto) 0.2 % Sodium 137 (135-149) mmol/L Potassium 4.5 (3.6-5.1) mmol/L Chloride 101 (96-114) mmol/L Carbon Dioxide 25 (20-32) mmol/L Anion Gap 11 (7-15) mEq/L BUN 65 H (7-30) mg/dL Creatinine 2.6 H (0.5-1.5) mg/dL Estimated GFR 18 ml/min Glucose 224 H (60-115) mg/dL Calcium 9.7 (8.4-10.6) mg/dL Magnesium 2.2 (1.5-2.6) mg/dL Total Bilirubin 0.3 (0.1-1.5) mg/dL AST 17 (12-35) U/L ALT 13 (4-35) U/L Alkaline Phosphatase 55 (40-150) U/L POC Troponin I High Sensi 4.4 (2.9-13.0) pg/mL Total Protein 7.5 (6.0-8.3) g/dL Albumin 4.4 (3.3-5.0) g/dL Urine Color (Yellow) Urine Appearance (Clear) Urine pH (5.0-8.5) Ur Specific Rice (1.000-1.030) Urine Protein (Negative) Urine Glucose (UA) (Negative) Urine Ketones (Negative) Urine Blood (Negative) Urine Nitrite (Negative) Urine Bilirubin (Negative) Urine Urobilinogen (0.2-1.0) Ur Leukocyte Esterase (Negative) Urine RBC (0-2) Urine WBC (0-5) Ur Squamous Epith Cells (None-Few) Urine Bacteria (None) SARS-CoV-2 (PCR) Negative SARS-CoV-2 (Negative) Influenza Type A (PCR) Negative PCR FLU A (Negative) Influenza Type B (PCR) Negative PCR FLU B (Negative) RSV (PCR) Negative PCR RSV (Negative) POC Glucose 241 H (60-115) mg/dl 08/07/25 Range/Units 16:16 WBC (4.50-11.00) K/uL RBC (4.00-5.20) m/uL Hgb (12.0-16.0) gm/dL Hct (33.0-51.0) % MCV (80-100) fL MCH (26-34) pg MCHC (32-36) gm/dL RDW Coeff of Giovanni (11.5-15.5) % Plt Count (140-440) K/uL Neut % (Auto) (42.0-72.0) % Lymph % (Auto) (20-44) % Jerauld % (Auto) (0.0-11.0) % Eos % (Auto) (0.0-7.0) % Baso % (Auto) (0.0-3.0) % Neut # (Auto) (1.7-7.0) K/uL Lymph # (Auto) (0.90-2.90) K/uL Jerauld # (Auto) (0.00-0.90) K/UL Eos # (Auto) (0.00-0.50) K/uL Baso # (Auto) (0.00-0.30) K/uL Abs Immat Gran (auto) (0.00-0.30) K/uL Imm/Tot Granulo (auto) % Sodium (135-149) mmol/L Potassium (3.6-5.1) mmol/L Chloride (96-114) mmol/L Carbon Dioxide (20-32) mmol/L Anion Gap (7-15) mEq/L BUN (7-30) mg/dL Creatinine (0.5-1.5) mg/dL Estimated GFR ml/min Glucose (60-115) mg/dL Calcium (8.4-10.6) mg/dL Magnesium (1.5-2.6) mg/dL Total Bilirubin (0.1-1.5) mg/dL AST (12-35) U/L ALT (4-35) U/L Alkaline Phosphatase (40-150) U/L POC Troponin I High Sensi (2.9-13.0) pg/mL Total Protein (6.0-8.3) g/dL Albumin (3.3-5.0) g/dL Urine Color Light yellow (Yellow) Urine Appearance Slightly Cloudy A (Clear) Urine pH 5.0 (5.0-8.5) Ur Specific Rice 1.015 (1.000-1.030) Urine Protein Negative (Negative) Urine Glucose (UA) Negative (Negative) Urine Ketones Negative (Negative) Urine Blood Trace-lysed A (Negative) Urine Nitrite Positive A (Negative) Urine Bilirubin Negative (Negative) Urine Urobilinogen 0.2 (0.2-1.0) Ur Leukocyte Esterase Trace A (Negative) Urine RBC 2-5 A (0-2) Urine WBC 2-5 (0-5) Ur Squamous Epith Cells Few (None-Few) Urine Bacteria Few A (None) SARS-CoV-2 (PCR) (Negative) Influenza Type A (PCR) (Negative) Influenza Type B (PCR) (Negative) RSV (PCR) (Negative) POC Glucose (60-115) mg/dl Imaging Data Chest x-ray: Attestation: I have reviewed the pertinent imaging results. Radiologist's impression: No acute findings. Dictated by Zafar Deshpande MD @ 08/07/2025 3:04:[address] scan head: Attestation: I have reviewed the pertinent imaging results. Radiologist's impression: Age-related and chronic small-vessel disease changes of the brain similar to previous exam without new acute intracranial abnormality. Please note that all CT scans at this facility use dose modulation, iterative reconstruction, and/or weight-based dosing when appropriate to reduce radiation dose to as low as reasonably achievable. Dictated by Joshua Novak MD @ 08/07/2025 3:11:45 PM ECG Data Attestation: I personally reviewed and interpreted this ECG as follows: Prior ECG tracings: available for review Interpretation: There is bradycardia with a first-degree AV block, VT interval 236. Normal QRS and QTC, normal axis, no ST or T-wave abnormalities. Discharge Plan Discharge Clinical Impression: Acute cystitis Qualifiers: Hematuria presence: without hematuria Qualified Code(s): N30.00 - Acute cystitis without hematuria Patient Disposition: Home w/ Parent or Adult Condition: Stable Instructions: Urinary Tract Infection in Women (DC) Additional Instructions: set up operator tool the Keflex from [employer]. I recommend going to the pharmacy tomorrow to picker machine operator the fosfomycin. We will call you if we need to change the antibiotics at all. Return to emergency department for new or worsening symptoms. I do recommend close follow-up with her primary care provider. Make sure she stays well hydrated. Prescriptions: New fosfomycin tromethamine 3 gram packet 3 g PO ONCE Qty: 1 0RF No Action amlodipine 5 mg tablet 5 mg PO DAILY lovastatin 20 mg tablet 20 mg PO HS atenolol 50 mg tablet 50 mg PO DAILY sertraline 50 mg tablet 50 mg PO DAILY Xarelto 20 mg tablet 20 mg PO DAILY cephalexin 500 mg capsule 500 mg PO BID glipizide 5 mg tablet 5 mg PO DAILY donepezil 10 mg tablet 10 mg PO HS olanzapine 2.5 mg tablet 2.5 - 5 mg PO HS furosemide 40 mg tablet 40 mg PO DAILY glyburide 2.5 mg tablet 2.5 mg PO DAILY olanzapine 5 mg tablet 5 mg PO QPM Follow Up/Referrals: Paloma Escobedo DO [Primary Care Provider, Family Practice] Stand Alone Forms: [employer] Info Instructions
[2025-08-07 14:25] LABS: Hematocrit* 37.5 % (33.0-51.0); Hemoglobin* 12.1 gm/dL (12.0-16.0); Immature Granulocytes Abs Auto 0.01 K/uL (0.00-0.30); Immature Granulocytes Pct Auto 0.2 %; Lymphocytes Absolute Auto 1.16 K/uL (0.90-2.90); Mean Corpuscular HGB Conc 32 gm/dL (32-36); Mean Corpuscular Hemoglobin 29 pg (26-34); Mean Corpuscular Volume 91 fL (80-100); RDW Coefficient of Variation % 13.0 % (11.5-15.5); Red Blood Count* 4.14 m/uL (4.00-5.20); White Blood Count* 5.61 K/uL (4.50-11.00)
[2025-08-07 14:46] LABS: Chloride* 101 mmol/L (96-114)
[2025-08-07 14:47] LABS: Albumin* 4.4 g/dL (3.3-5.0); Potassium* 4.5 mmol/L (3.6-5.1); Sodium* 137 mmol/L (135-149)
[2025-08-07 14:49] LABS: Anion Gap 11 mEq/L (7-15); Blood Urea Nitrogen* 65 mg/dL (7-30); Carbon Dioxide* 25 mmol/L (20-32); Creatinine* 2.6 mg/dL (0.5-1.5); Estimated Glomerular Filt Rate 18 ml/min
[2025-08-07 14:50] LABS: Alanine Aminotransferase* 13 U/L (4-35); Alkaline Phosphatase* 55 U/L (40-150); Aspartate Amino Transferase* 17 U/L (12-35); Bilirubin Total* 0.3 mg/dL (0.1-1.5); Calcium* 9.7 mg/dL (8.4-10.6); Glucose* 224 mg/dL (60-115); Total Protein* 7.5 g/dL (6.0-8.3)
[2025-08-07 15:04] LABS: PCR FLU A Negative PCR FLU A (Negative); PCR FLU B Negative PCR FLU B (Negative); PCR RSV Negative PCR RSV (Negative); SARS PCR* Negative SARS-CoV-2 (Negative)
[2025-08-07 15:35] VITALS: BP 155/68; PULSE 52; RESP 17; O2SAT 95
[2025-08-07 16:33] LABS: Appearance Urine Slightly Cloudy (Clear)
[2025-08-07 17:20] VITALS: BP 144/64; PULSE 56; RESP 18; TEMP 36.4; O2SAT 95
[2025-08-07] MEDS: LACTATED RINGERS 1000 ML 1,000 ML IV (17:41)
[2025-08-07 18:16] LABS: Slide Review Reflex No
[2025-08-07] MEDS: cefTRIAXone 1 GM in 0.9 % SODIUM CHLORIDE Mini-bag 100 ML IVPB (18:34)
== END 2025-08-07 19:10 | disposition home or self-care (01) ==
PROVIDERS: Emergency Provider Student in an Organized Health Care Education/Training Program; PCP Family Medicine
DX: N30.00 Acute cystitis without hematuria (principal); E11.22 Type 2 diabetes mellitus with diabetic chronic kidney disease; I12.9 Hypertensive chronic kidney disease with stage 1 through stage 4 chronic kidney disease, or unspecified chronic kidney disease; N18.4 Chronic kidney disease, stage 4 (severe); Z79.84 Long term (current) use of oral hypoglycemic drugs
CPT/HCPCS: 36415; 70450; 71046; 80053; 81001; 82947; 83735; 84484; 85025; 87086; 87631; 93005; 96365; 99284; 99285; J0696; J7120